=== PATIENT | female | born 1960 | race Two or more races ===

== ENCOUNTER 2020-07-20 13:19 | Outpatient (REF) | payer MEDICAID, SELFPAY | END 2020-07-20 13:20 | disposition home or self-care (01) | LOC: HO.LAB 13:19 | PROVIDERS: PCP Family Medicine; Referring Provider Family Medicine; Visit Provider Obstetrics & Gynecology | DX: R87.610 Atypical squamous cells of undetermined significance on cytologic smear of cervix (ASC-US) (principal); R87.810 Cervical high risk human papillomavirus (HPV) DNA test positive | CPT/HCPCS: 57454; 88305 ==

== ENCOUNTER → 2020-09-05 08:52 | Outpatient (BNVA) | payer MEDICAID, SELFPAY | PROVIDERS: PCP Family Medicine; Referring Provider Family Medicine; Visit Provider Obstetrics & Gynecology | DX: N87.0 Mild cervical dysplasia (principal) | CPT/HCPCS: 99212 ==

== ENCOUNTER 2020-09-09 11:57 | Day surgery (SDC) | payer MEDICAID, SELFPAY ==
[2020-09-09 12:58] VITALS: BP 190/96; PULSE 71; RESP 16; TEMP 36.4; O2SAT 98; BMI 31.7
--- NOTE | 2020-09-09 13:39 | MHC.SHP ---
Pre-Procedural Eval Section A The patient is an INPATIENT: No Changes since office visit: No Cold of Flu in the past 2 weeks, No New Medical Problems, No Changes in Medication and No Patient answered all questions The History & Physical has been completed within 30 days and I have reviewed it.: Yes Section B Chief Complaint: ely 1 persistant Allergies: Allergies Allergy/AdvReac Type Severity Reaction Status Date / Time penicillin V Allergy Unknown hives Verified 09/05/20 09:01 Penicillins [PENICILLINS] Allergy Unknown UNKNOWN Unverified 09/05/20 09:01 Plan Diagnosis/Plan: Unchanged Patient has been examined and remains a candidate for the planned procedure
--- NOTE | 2020-09-09 13:39 | PM.OP ---
Brief Operative Note Date of Service: 09/09/20 Pre-op diagnosis: persistent DHARMESH I with no tissues on ECC Post-op diagnosis: same Procedure: LEEP CONE with post CONE ECC Surgeon: Dieter Snyder MD Anesthesia: local and other (Paracervical block) Estimated blood loss (mL): 0 Pathology: other ( cervical cone and endocervix) Condition: stable Disposition: other (Home)
--- NOTE | 2020-09-09 13:41 | W.PM.OPN ---
Operative Note Operative Note Date of Service: 09/09/20 Narrative: Preop diagnosis: DHARMESH I with no tissues on ECC Operation: LEEP Cone with post cone ECC Post op diagnosis: same Anesthesia: paracervical block Complications: none Pathology: cervical cone with endocervix and a post cone ECC QBL: minimal procedure: The patient was put in the dorsal lithotomy position, was prepped and draped in the usual sterile fashion. A sterile speculum was inserted inside the patient vagina. Using Lugol solution the cervix with Dyed with Lugol solution to identifiy the abnormal demarcating line. 10 cc of Marcaine0.5% with epinephrine were given at 2,4 , 8, and 10 o'clock. Using a medium-size loop wire, the anterior cervical lip was excised followed by the posterior cervical lip and endocervix, post cone ECC was done afterwards. Hemostasis was assured using cautery and Monsel solution. All instruments were taken out of the patient's vaginal cavity. the patient tolerated the procedure well and was discharged home with the following instructions: call if temperature is above 100.4, vaginal bleeding, abdominal pain or nausea or vomiting. Follow-up in the office in 2 weeks for postop visit
== END 2020-09-09 23:59 | disposition home or self-care (01) ==
PROVIDERS: PCP Family Medicine; Visit Provider Obstetrics & Gynecology
PROC: 0UBC7ZZ Excision of Cervix, Via Natural or Artificial Opening (ICD-10-PCS; CPT 57522; principal; 2020-09-09 13:30)
DX: N87.0 Mild cervical dysplasia (principal); Z88.0 Allergy status to penicillin; I10 Essential (primary) hypertension
CPT/HCPCS: 57522; 88305; 88307; 88342; 88360

== ENCOUNTER → 2020-09-21 11:20 | Outpatient (BNVA) | payer MEDICARE, SELFPAY | PROVIDERS: Visit Provider Obstetrics & Gynecology | DX: Z13.89 Encounter for screening for other disorder (principal) | CPT/HCPCS: Q3014 ==

== ENCOUNTER 2020-09-26 15:19 | Outpatient (REF) | payer MEDICAID, SELFPAY ==
--- NOTE | 2020-09-26 | MM_ITS ---
EXAMINATION: MM SCREENING DIGITAL BREAST TOMOSYNTHESIS, BILATERAL CLINICAL INFORMATION: Screening. Asymptomatic. The lifetime risk of breast cancer based on the Tyrer-Cuzick Model is 13%. COMPARISON: Mammography: 03/18/2019, 03/05/2018, 07/24/2016, 03/23/2013, 03/21/2012; targeted left breast ultrasound 11/26/2008. TECHNIQUE: Digital breast tomosynthesis is performed in both the craniocaudal and mediolateral oblique views along with computer-aided detection (CAD). Synthesized 2D images are generated from the tomosynthesis. FINDINGS: There are scattered areas of fibroglandular density (ACR BI-RADS breast composition Category b). There are no significant masses, abnormal calcifications, or other abnormalities. There is a chronic circumscribed oval mass posterior 3:00 left breast slightly decreased in size from more remote mammography. Cyst noted in this area on targeted left breast ultrasound from 2008. No significant changes. MM/MM tomosynthesis screening BI IMPRESSION: 1. No mammographic evidence of malignancy. 2. Chronic circumscribed nodule posterior 3:00 left breast, cyst noted in this area on remote targeted ultrasound 2008. ASSESSMENT: BI-RADS 2: Benign RECOMMENDATION: Routine annual mammography screening. This patient's information was entered into a reminder system with a target due date for their next mammogram.
== END 2020-09-26 15:20 | disposition home or self-care (01) ==
LOC: HO.MAMMO 15:19
PROVIDERS: PCP Family Medicine; Visit Provider Advanced Practice Midwife
DX: Z12.31 Encounter for screening mammogram for malignant neoplasm of breast (principal)
CPT/HCPCS: 77063; 77067

== ENCOUNTER 2020-09-26 16:20 | Outpatient (REF) | payer MEDICAID, SELFPAY | END 2020-09-26 16:21 | disposition home or self-care (01) | LOC: HO.LAB 16:20 | PROVIDERS: Visit Provider Internal Medicine | DX: Z20.828 Contact with and (suspected) exposure to other viral communicable diseases (principal) | CPT/HCPCS: C9803; U0003 ==

== ENCOUNTER 2021-07-22 09:35 | Outpatient (REF) | payer MEDICAID, SELFPAY ==
--- NOTE | ~2021-07-22 | XR_ITS ---
EXAMINATION: XR FOOT, RIGHT CLINICAL INFORMATION: Pain along the plantar surface near 3rd toe. Suspected foreign body. COMPARISON: None TECHNIQUE: AP, lateral, and oblique views of the right foot. FINDINGS: Minimal calcaneal spur is noted along the plantar aspect. The bones and soft tissues are normal. No fracture. Alignment is anatomic. Joint spaces are maintained. XR/XR foot RT min 3V IMPRESSION: Minimal calcaneal spur. Otherwise unremarkable. Specifically, no radiopaque foreign body is visualized.
[2021-07-22 11:06] LABS: Estimated Average Glucose 114 mg/dL; Hemoglobin A1c % 5.6 %
[2021-07-22 11:11] LABS: Alanine Aminotransferase 20 U/L (0-31); Albumin Level 4.3 g/dL (3.5-5.0); Alkaline Phosphatase 80 U/L (39-117); Anion Gap 10 (12-20); Aspartate Amino Transferase 18 U/L (5-31); Bilirubin Total 0.6 mg/dL (0.0-1.0); Blood Urea Nitrogen 12 mg/dL (9-16); Calcium 9.5 mg/dL (8.4-10.2); Carbon Dioxide 31 mmol/L (22-29); Chloride 100 mmol/L (96-108); Cholesterol 168 mg/dL; Estimated Glomerular Filt Rate > 60; Glucose Random 116 mg/dL (60-115); HDL Cholesterol 43 mg/dL; LDL Cholesterol Calculated 114 mg/dl; Potassium 3.5 mmol/L (3.3-5.1); Sodium 137 mmol/L (135-145); Total Protein 7.4 g/dL (6.5-8.0); Triglycerides 59 mg/dL
[2021-07-22 11:31] LABS: TSH reflex Free T4 0.43 uIU/mL (0.32-4.0); Vitamin D 25-OH Total 25.1 ng/mL (>30)
== END 2021-07-22 09:36 | disposition home or self-care (01) ==
LOC: HO.LAB 09:35
PROVIDERS: PCP Family Medicine; Visit Provider Family Medicine
DX: M79.671 Pain in right foot (principal); I10 Essential (primary) hypertension
CPT/HCPCS: 36415; 73630; 80053; 80061; 82306; 83036; 84443

== ENCOUNTER 2021-09-28 15:40 | Outpatient (REF) | payer MEDICAID, SELFPAY ==
[2021-10-06 14:02] LABS: HPV 16 RNA NOT DETECTED (NOT DETECTED); HPV mRNA E6/E7 rflx Detected (Not Detected)
== END 2021-09-28 15:41 | disposition home or self-care (01) ==
LOC: HO.LAB 15:40
PROVIDERS: PCP Family Medicine; Visit Provider Obstetrics & Gynecology
DX: Z01.411 Encounter for gynecological examination (general) (routine) with abnormal findings (principal); Z11.51 Encounter for screening for human papillomavirus (HPV); N94.9 Unspecified condition associated with female genital organs and menstrual cycle
CPT/HCPCS: 87624; 87625; 88142

== ENCOUNTER 2021-10-06 15:37 | Outpatient (REF) | payer MEDICAID, SELFPAY ==
--- NOTE | ~2021-10-06 | MM_ITS ---
EXAMINATION: MM SCREENING DIGITAL BREAST TOMOSYNTHESIS, BILATERAL CLINICAL INFORMATION: Screening. Asymptomatic. The lifetime risk of breast cancer based on the Tyrer-Cuzick Model is 12%. COMPARISON: Mammography: 09/26/2020, 03/18/2019, 03/05/2018 TECHNIQUE: Digital breast tomosynthesis is performed in both the craniocaudal and mediolateral oblique views along with computer-aided detection (CAD). Synthesized 2D images are generated from the tomosynthesis. FINDINGS: There are scattered areas of fibroglandular density (ACR BI-RADS breast composition Category b). There is fine fibronodular parenchymal pattern similar to prior studies. There is no developing density or interval mass or architectural abnormality. Circumscribed nodule posterior 3:00 left breast noted on prior studies has resolved. There are no abnormal calcifications. The axilla and skin contours are unremarkable. MM/MM tomosynthesis screening BI IMPRESSION: No mammographic evidence of malignancy. ASSESSMENT: BI-RADS 2: Benign RECOMMENDATION: Routine annual mammography screening. This patient's information was entered into a reminder system with a target due date for their next mammogram.
== END 2021-10-06 15:38 | disposition home or self-care (01) ==
LOC: HO.MAMMO 15:37
PROVIDERS: PCP Family Medicine; Visit Provider Family Medicine
DX: Z12.31 Encounter for screening mammogram for malignant neoplasm of breast (principal)
CPT/HCPCS: 77063; 77067

== ENCOUNTER 2021-10-30 14:54 | Outpatient (REF) | payer MEDICAID, SELFPAY | END 2021-10-30 14:55 | disposition home or self-care (01) | LOC: HO.LAB 14:54 | PROVIDERS: PCP Family Medicine; Visit Provider Obstetrics & Gynecology | DX: R87.610 Atypical squamous cells of undetermined significance on cytologic smear of cervix (ASC-US) (principal); R87.810 Cervical high risk human papillomavirus (HPV) DNA test positive | CPT/HCPCS: 57454; 88305 ==

== ENCOUNTER → 2021-11-14 14:20 | Outpatient (BNVA) | payer MEDICAID, SELFPAY | PROVIDERS: PCP Family Medicine; Visit Provider Obstetrics & Gynecology | DX: R87.610 Atypical squamous cells of undetermined significance on cytologic smear of cervix (ASC-US) (principal); R87.810 Cervical high risk human papillomavirus (HPV) DNA test positive | CPT/HCPCS: 99212 ==

== ENCOUNTER 2021-11-20 13:50 | Outpatient (REF) | payer MEDICAID, SELFPAY ==
--- NOTE | ~2021-11-20 | US_ITS ---
EXAMINATION: US PELVIS CLINICAL INFORMATION: Adnexal fullness. COMPARISON: None TECHNIQUE: Ultrasound of the pelvis is performed using both transabdominal and transvaginal transducers along with Doppler. Transvaginal imaging is performed due to inadequate visualization transabdominally. FINDINGS: Uterus: The uterus is anteverted and measures 6.23 cm in length, 2.2 cm in AP and 4.4 cm in transverse dimension. The double wall endometrial thickness is 0.26 cm. The uterus is smooth in contour and has normal myometrial echogenicity. No visible fibroid. There are small nabothian cysts seen in the cervix. Adnexa: Both ovaries are visualized. There is normal color-flow to the adnexa. There is no ovarian torsion. There is no pelvic ascites or fluid collection. Right ovary measures 1.35 x 0.54 x 1.01 cm and volume 0.39 mL. No focal lesion seen. Previously the right ovary measured 1.3 x 1.1 x 1.2 cm. Left ovary measures 2.78 x 2.13 x 1.89 cm and volume 5.85 mL. There is an anechoic cyst measuring 1.4 x 2.3 x 1.6 cm. Previously the left ovary measured 1.6 x 1.0 x 1.9 cm. There is no free fluid in the cul-de-sac. Patient has a known left pelvic kidney with a dilated extrarenal pelvis versus small hydronephrosis. US/US pelvic and transvaginal IMPRESSION: Small nabothian cysts in the cervix. Small left ovarian cyst measuring 2.3 cm. The uterus is unremarkable.
== END 2021-11-20 13:51 | disposition home or self-care (01) ==
LOC: HO.US 13:50
PROVIDERS: PCP Family Medicine; Visit Provider Obstetrics & Gynecology
DX: N94.9 Unspecified condition associated with female genital organs and menstrual cycle (principal)
CPT/HCPCS: 76830; 76856

== ENCOUNTER → 2021-12-04 13:56 | Outpatient (BNVA) | payer MEDICAID, SELFPAY | PROVIDERS: Visit Provider Obstetrics & Gynecology ==

== ENCOUNTER 2022-10-19 14:47 | Outpatient (REF) | payer MEDICAID, SELFPAY ==
--- NOTE | ~2022-10-19 | MM_ITS ---
EXAMINATION: MM SCREENING DIGITAL BREAST TOMOSYNTHESIS, BILATERAL CLINICAL INFORMATION: Screening. Asymptomatic. The lifetime risk of breast cancer based on the Tyrer-Cuzick Model is 8%. COMPARISON: Mammography: 10/06/2021, 09/26/2020, 03/18/2019 TECHNIQUE: Digital breast tomosynthesis is performed in both the craniocaudal and mediolateral oblique views along with computer-aided detection (CAD). Synthesized 2D images are generated from the tomosynthesis. Additional left MLO view is provided. FINDINGS: There are scattered areas of fibroglandular density (ACR BI-RADS breast composition Category b). There are no significant masses, abnormal calcifications, or other abnormalities. Breast tissue composition borders on heterogeneously dense. Fine fibronodular parenchymal pattern is similar to prior studies. No developing density or architectural abnormality. No significant changes. MM/MM tomosynthesis screening BI IMPRESSION: No mammographic evidence of malignancy. ASSESSMENT: BI-RADS 1: Negative RECOMMENDATION: Routine annual mammography screening. This patient's information was entered into a reminder system with a target due date for their next mammogram.
== END 2022-10-19 14:48 | disposition home or self-care (01) ==
LOC: HO.MAMMO 14:47
PROVIDERS: PCP Family Medicine; Visit Provider Family Medicine
DX: Z12.31 Encounter for screening mammogram for malignant neoplasm of breast (principal)
CPT/HCPCS: 77063; 77067

== ENCOUNTER → 2022-11-26 14:00 | Outpatient (BNVA) | payer MEDICAID, SELFPAY | PROVIDERS: PCP Family Medicine; Visit Provider Surgery | DX: K64.9 Unspecified hemorrhoids (principal) | CPT/HCPCS: 99202 ==

== ENCOUNTER 2022-12-04 14:44 | Outpatient (REF) | payer MEDICAID, SELFPAY ==
[2022-12-11 10:03] LABS: HPV mRNA E6/E7 rflx Detected (Not Detected)
[2022-12-11 10:08] LABS: HPV 16 RNA NOT DETECTED (NOT DETECTED)
== END 2022-12-04 14:45 | disposition home or self-care (01) ==
LOC: HO.LNP 14:44
PROVIDERS: PCP Family Medicine; Visit Provider Obstetrics & Gynecology
DX: Z01.419 Encounter for gynecological examination (general) (routine) without abnormal findings (principal); Z11.51 Encounter for screening for human papillomavirus (HPV)
CPT/HCPCS: 87624; 87625; 88142

== ENCOUNTER 2022-12-19 07:59 | Day surgery (SDC) | payer MEDICAID, SELFPAY ==
--- NOTE | 2022-12-18 12:41 | HO.ANESPROP2 ---
Documented by User: Fransisca Kim NP 12/18/22 12:42 HPI - Anesthesia Eval Consult details Narrative: 61yo F for Hemorrhoidectomy, Sigmoidoscopy, Rigid PMFSH Active Problems Active Problems: All Active Problems (Updated 12/04/22 @ 15:19 by Dieter Snyder MD) Hemorrhoids (Acute) Adnexal fullness (Acute) Well woman exam (Acute) ASCUS with positive high risk HPV (Acute) ASCUS with positive high risk HPV cervical (Acute) Past Medical History Medical History (Updated 12/04/22 @ 15:19 by Dieter Snyder MD) ASCUS with positive high risk HPV cervical DHARMESH I (cervical intraepithelial neoplasia I) Hypertension Family History Family History (Updated 12/04/22 @ 15:06 by Joselin Duggan CMA) Father HTN (hypertension) Heart attack Mother HTN (hypertension) Diabetes Heart disease Brother HTN (hypertension) Sister HTN (hypertension) Surgical History Surgical History History of bilateral tubal ligation History of Social History Social History (Updated 12/04/22 @ 15:08 by Joselin Duggan CMA) Household Members: Family Housing: House Alcohol intake: current Alcohol intake frequency: does not drink Alcohol type: beer Patient Tobacco Use Status: Never used Tobacco Use of substances other than those prescribed or required for medical reasons: No Are you DNR?: No Advance Directives: No Advance Directives Information Provided: Yes service: No Current occupational status: employed 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 Sexual orientation: Straight/Heterosexual Gender identity: Female Meds Allergies Allergy/AdvReac Type Severity Reaction Status Date / Time penicillin V Allergy Unknown hives Verified 12/04/22 15:04 Home Medications Medication Instructions Recorded Confirmed Last Taken Type chlorthalidone 25 mg tablet 25 mg PO DAILY 07/20/20 11/26/22 Unknown History Exam Exam Date and Time: December 18, 2022 1241 Assessment and Plan Assessment Anesthesia Assessment: Chart Reviewed Documented by User: Yany Malone MD 12/19/22 09:14 [facility] Past Medical History Medical History (Updated 12/04/22 @ 15:19 by Dieter Snyder MD) ASCUS with positive high risk HPV cervical DHARMESH I (cervical intraepithelial neoplasia I) Hypertension Family History Family History (Updated 12/04/22 @ 15:06 by Joselin Duggan CMA) Father HTN (hypertension) Heart attack Mother HTN (hypertension) Diabetes Heart disease Brother HTN (hypertension) Sister HTN (hypertension) Family history of problems with anesthesia: No Surgical History Surgical History History of bilateral tubal ligation History of History of Problems with Anesthesia: No Social History Social History (Updated 12/04/22 @ 15:08 by Joselin Duggan CMA) Household Members: Family Housing: House Alcohol intake: current Alcohol intake frequency: does not drink Alcohol type: beer Patient Tobacco Use Status: Never used Tobacco Use of substances other than those prescribed or required for medical reasons: No Are you DNR?: No Advance Directives: No Advance Directives Information Provided: Yes service: No Current occupational status: employed 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 Sexual orientation: Straight/Heterosexual Gender identity: Female Meds Allergies Allergy/AdvReac Type Severity Reaction Status Date / Time penicillin V Allergy Unknown hives Verified 12/04/22 15:04 Home Medications Medication Instructions Recorded Confirmed Last Taken Type chlorthalidone 25 mg tablet 25 mg PO DAILY 07/20/20 11/26/22 Unknown History Exam Airway Mallampati Class: III TM Dist: >3cm Neck ROM: Full Assessment and Plan Assessment Anesthesia Assessment: Anesthesia Plan Discussed Final Anesthetic Review Family History of Problems with Anesthesia: No History of Problems with Anesthesia: No NPO: Yes ASA Class: II Final Preanesthetic Review: No Changes in Pt Med Stat, Meds/Allgs Chart Reviewed, Consent Obtained/Reviewed and Anes Risks/Benef Reviewed Patient Risk: Intermediate Procedure Risk: Low Anesthetic Plan Anesthetic Plan: GA Disposition: Standard PACU
[2022-12-19] VITALS (8 sets, daily range): BP systolic 112–158; BP diastolic 69–86; PULSE 60–73; RESP 16–18; TEMP 36.4–36.5; O2SAT 96–99; BMI 32.7
[2022-12-19] MEDS: Lactated Ringers 1,000 ML 100 ML IVCONT (08:48)
[2022-12-19] MEDS: Acetaminophen 1,000 MG/100 ML PIGGYBACK 400 MG IV (11:07)
--- NOTE | 2023-01-11 11:44 | P.OP_ITS ---
Operative Note Operative Note Date of Service: 12/19/22 Narrative: Preoperative diagnosis: [] Symptomatic external hemorrhoids Postop diagnosis: [] Same Procedure [] external hemorrhoidectomy Surgeon: [] Dawson Electrical Tests Supervisor: [] Type of Anesthesia: [] General Indication for surgery: [] Symptomatic enlarging bleeding external hemorrhoids Findings: [] Patient presents with hemorrhoids at the for 7 and 11 o'clock positions Patient brought the operating room, placed on the operating table in a supine position, after an adequate level of general anesthesia was induced, patient was placed in lithotomy. Initial rectal exam was within normal limits aside from the above mentioned hemorrhoids. These were sequentially transected using mini ligature device, by grasping each hemorrhoid and placing the ligature at the base and sequentially ligating and transecting. A completion the procedure, wounds were clean dry and intact. Each was infiltrated with 0.5% Marcaine with epinephrine a completion. Dressings were applied. Sponge, needle, and instrument counts were reported to be correct. Patient tolerated the procedure well and emerged from anesthesia stable condition. EBL minimal
== END 2022-12-19 11:57 | disposition home or self-care (01) ==
PROVIDERS: PCP Family Medicine; Visit Provider Surgery
PROC: (CPT 46221; principal; 2022-12-19 09:50)
PROC: 0DJD8ZZ Inspection of Lower Intestinal Tract, Via Natural or Artificial Opening Endoscopic (ICD-10-PCS; CPT 45300; 2022-12-19 09:50)
DX: K64.4 Residual hemorrhoidal skin tags (principal); K59.00 Constipation, unspecified; Z86.010 Personal history of colon polyps; N87.0 Mild cervical dysplasia; I10 Essential (primary) hypertension; Z79.899 Other long term (current) drug therapy; Z88.0 Allergy status to penicillin; Z98.51 Tubal ligation status
CPT/HCPCS: 46221; 88304; J0131; J1100; J2250; J2405; J2795; J3010

== ENCOUNTER → 2022-12-27 11:14 | Outpatient (BNVA) | payer MEDICAID, SELFPAY | PROVIDERS: PCP Family Medicine; Visit Provider Surgery ==

== ENCOUNTER 2023-02-18 11:37 | Outpatient (REF) | payer MEDICAID, SELFPAY | END 2023-02-18 11:38 | disposition home or self-care (01) | LOC: HO.LNP 11:37 | PROVIDERS: PCP Family Medicine; Visit Provider Obstetrics & Gynecology | DX: R87.610 Atypical squamous cells of undetermined significance on cytologic smear of cervix (ASC-US) (principal); R87.810 Cervical high risk human papillomavirus (HPV) DNA test positive | CPT/HCPCS: 57454; 88305; 88342 ==

== ENCOUNTER 2023-03-05 14:51 | Outpatient (REF) | payer MEDICAID, SELFPAY ==
--- NOTE | ~2023-03-05 | XR_ITS ---
EXAMINATION: XR CHEST CLINICAL INFORMATION: Positive PPD COMPARISON: Previous chest x-ray March 2020 TECHNIQUE: 2 views of the chest were obtained. FINDINGS: No significant abnormality is noted involving the heart, lungs, mediastinum, bony thorax or soft tissues. XR/XR chest 2V IMPRESSION: Unremarkable examination.
== END 2023-03-05 14:52 | disposition home or self-care (01) ==
LOC: HO.HHCX 14:51
PROVIDERS: Visit Provider Family Medicine
DX: R76.11 Nonspecific reaction to tuberculin skin test without active tuberculosis (principal)
CPT/HCPCS: 71046

== ENCOUNTER → 2023-03-27 13:20 | Outpatient (BNVA) | payer MEDICAID, SELFPAY | PROVIDERS: PCP Family Medicine; Visit Provider Obstetrics & Gynecology | DX: N87.0 Mild cervical dysplasia (principal); Z98.890 Other specified postprocedural states | CPT/HCPCS: 99212 ==

== ENCOUNTER 2023-06-10 18:33 | Outpatient (REF) | payer MEDICAID, SELFPAY ==
[2023-06-10 18:45] LABS: Appearance Urine Clear; Color Urine Yellow; Glucose Urine UA Negative (Negative); Leukocyte Esterase Urine Small (1+) (Negative); Nitrite Urine Negative (Negative); PH 6.5 (5.0-9.0); UMIC TRIGGER UA YES; Urine Blood Negative (Negative); Urine Ketones Negative (Negative); Urine Protein Negative (Neg-Trace)
[2023-06-10 18:50] LABS: Bacteria Urine 2+ (None Seen); Hyaline Casts Urine 0-2 /LPF (0-2); RBC Urine 0-2 /HPF (0-2); WBC Urine 21-50 /HPF (0-5)
== END 2023-06-10 18:34 | disposition home or self-care (01) ==
LOC: HO.HHCLNP 18:33
PROVIDERS: Visit Provider Family Medicine
DX: R30.0 Dysuria (principal)
CPT/HCPCS: 81001; 87086

== ENCOUNTER 2023-09-20 10:26 | Outpatient (REF) | payer MEDICAID, SELFPAY ==
[2023-09-20 14:57] LABS: Cholesterol 171 mg/dL (<200); HDL Cholesterol 53 mg/dL (>40); LDL Cholesterol Calculated 105 mg/dL (<100); Triglycerides 69 mg/dL (<150)
[2023-09-20 15:12] LABS: Alanine Aminotransferase 17 U/L (0-31); Albumin Level 4.3 g/dL (3.5-5.0); Alkaline Phosphatase 78 U/L (39-117); Anion Gap 13 (12-20); Aspartate Amino Transferase 19 U/L (5-31); Bilirubin Total 0.6 mg/dL (0.0-1.0); Blood Urea Nitrogen 17 mg/dL (9-16); Calcium 9.7 mg/dL (8.4-10.2); Carbon Dioxide 27 mmol/L (22-29); Chloride 100 mmol/L (96-108); Estimated Glomerular Filt Rate > 60; Glucose Random 88 mg/dL (60-115); Potassium 3.4 mmol/L (3.3-5.1); Sodium 137 mmol/L (135-145); Total Protein 8.1 g/dL (6.5-8.0)
[2023-09-20 15:27] LABS: Estimated Average Glucose 114 mg/dL; Hemoglobin A1C 134.7033 umol/L; Hemoglobin A1c % 5.6 % (<6.0)
[2023-09-20 15:28] LABS: TSH reflex Free T4 0.56 uIU/mL (0.32-4.0)
[2023-09-20 17:35] LABS: Reflex LDLD? No
== END 2023-09-20 10:27 | disposition home or self-care (01) ==
LOC: HO.CHCLDS 10:26
PROVIDERS: Visit Provider Family Medicine
DX: I10 Essential (primary) hypertension (principal); R73.03 Prediabetes
CPT/HCPCS: 36415; 80053; 80061; 83036; 84443

== ENCOUNTER 2023-10-25 14:37 | Outpatient (REF) | payer MEDICAID, SELFPAY | END 2023-10-25 14:38 | disposition home or self-care (01) | LOC: HO.MAMMO 14:37 | PROVIDERS: PCP Family Medicine; Visit Provider Family Medicine | DX: Z12.31 Encounter for screening mammogram for malignant neoplasm of breast (principal) | CPT/HCPCS: 77063; 77067 ==

== ENCOUNTER → 2023-10-25 15:00 | Outpatient (BNV) | payer MEDICAID, SELFPAY | PROVIDERS: PCP Family Medicine; Visit Provider Radiology Diagnostic Radiology | DX: Z12.31 Encounter for screening mammogram for malignant neoplasm of breast (principal) | CPT/HCPCS: 77063; 77067 ==

== ENCOUNTER 2023-12-11 14:38 | Outpatient (REF) | payer MEDICAID, SELFPAY ==
[2023-12-21 19:44] LABS: HPV 16 RNA NOT DETECTED (NOT DETECTED); HPV mRNA E6/E7 rflx Detected (Not Detected)
== END 2023-12-11 14:39 | disposition home or self-care (01) ==
LOC: HO.LNP 14:38
PROVIDERS: Visit Provider Obstetrics & Gynecology
DX: Z01.419 Encounter for gynecological examination (general) (routine) without abnormal findings (principal); Z11.51 Encounter for screening for human papillomavirus (HPV)
CPT/HCPCS: 87624; 87625; 88142; 99396

== ENCOUNTER 2023-12-11 14:38 | Outpatient (AMB) | payer MEDICAID, SELFPAY ==
[2023-12-11 14:40] VITALS: BP 122/70
--- NOTE | 2023-12-11 14:40 | A.OFFVIS_ITS ---
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 No complaints. Last Pap/HPV was in 12/20 ascus/HPV 18/45 positive, colpo/biopsy/ECC DHARMESH 1 Last Mammogram was BI-RADS 1 in 10/23 Last Colonoscopy was in 04/17, the recommendation was to repeat in 5 years [facility] Medical History DHARMESH I (cervical intraepithelial neoplasia I) ASCUS with positive high risk HPV cervical Hypertension Surgical History History of hemorrhoidectomy (~12/19/22) History of bilateral tubal ligation History of Family History Father HTN (hypertension) Heart attack Mother HTN (hypertension) Diabetes Heart disease Brother HTN (hypertension) Sister HTN (hypertension) Social History Household Members: Family Housing: House Alcohol intake: current Alcohol intake frequency: does not drink Alcohol type: beer Patient Tobacco Use Status: Never used Tobacco service: No Current occupational status: employed 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 Sexual orientation: Straight/Heterosexual Gender identity: Female Female Reproductive History Menstrual Date of last pap smear: 12/05/22 History of abnormal pap smear: Yes (HPV +) Date of Mammogram: 10/25/23 Review of Systems Const All systems reviewed & are unremarkable except as noted in HPI and below Card Reports as per HPI Resp Reports as per HPI GI Reports as per HPI and Reports no additional complaints Reports as per HPI Physical Exam Const General: cooperative, healthy appearing and comfortable Chest Chest palpation & inspection: normal inspection of the chest and normal palpation of entire chest wall Breast/axilla inspection: normal inspection of the breasts and normal inspection of the axillae Breast/axilla palpation: normal palpation of the breasts, normal palpation of the axillae and no axillary lymphadenopathy Resp Effort & Inspection: normal respiratory effort Auscultation: clear to auscultation bilaterally Percussion: percussion normal Cardio Palpation: normal PMI Rate: regular rate Rhythm: regular rhythm Heart sounds: no murmurs and no rubs Peripheral pulses: Peripheral pulses 2+ throughout GI Inspection: Yes normal to inspection Palpation (GI): Soft to palpation, nontender, no guarding, not rigid and No hepatosplenomegaly present Percussion: Yes normal to percussion Auscultation: normal bowel sounds Rectal Exam - Female: deferred General: Yes bladder normal to palpation External Female Exam: No lesion Speculum Exam - Vagina: normal appearance of the vagina, normal palpation, normal vaginal discharge and not erythematous Speculum Exam - Cervix: normal appearance of the cervix and normal palpation Bimanual exam- vagina & uterus: normal bimanual exam, normal palpation, uterine size normal, bladder normal to palpation, consistency normal and normal palpation Bimanual Exam- Adnexa, other: normal adnexae, no masses and no tenderness Assessment & Plan Assessment & Plan (1) Well woman exam: Comment: History of DHARMESH 1 since 2016 status post LEEP cone was post cone ECC with negative pathology 10/21 Ascus/HPV 18 positive, colpo negative/ECC negative 12/20 ascus/HPV 18/45 positive, colpo biopsy DHARMESH 1 Code(s): Z01.419 - Encounter for gynecological examination (general) (routine) without abnormal findings Plan: Co testing done. Counseled the patient about the recommended dietary allowance of 1200 mg of Calcium & 600 IU of vitamin D. Instructions given to patient to schedule next screening Mammogram in 10/24 The patient was referred to GI for screening colonoscopy . The patient was instructed to perform monthly self-breast exams and schedule annual exam in a year. All questions answered and the patient verbalized understanding. Orders: Referrals Gastroenterology Referral Z12.11 - Encounter for screening for malignant neoplasm of colon Coding Level of Care Code Est Pt Prev Care 40-64y(59826) Diagnoses Well woman exam Z01.419
== END 2023-12-11 16:12 | disposition home or self-care (01) ==
PROVIDERS: Visit Provider Obstetrics & Gynecology
DX: Z01.419 Encounter for gynecological examination (general) (routine) without abnormal findings (principal)
CPT/HCPCS: 99396

== ENCOUNTER 2023-12-19 12:13 | Outpatient (REF) | payer MEDICAID, SELFPAY ==
--- NOTE | ~2023-12-19 | XR_ITS ---
EXAM: X-RAYS OF BILATERAL SHOULDERS CLINICAL INFORMATION: Bilateral shoulder pain. COMPARISON: Left shoulder 07/09/2017. TECHNIQUE: 3 views of each shoulder. FINDINGS: LEFT SHOULDER: Degenerative changes in the imaged upper thoracic spine. The bones are diffusely demineralized. Moderate degenerative changes with joint space narrowing and hypertrophic change in the acromioclavicular joint. Narrowing of the subacromial space with hypertrophic change. Spurring along the superolateral aspect of the humeral head. RIGHT SHOULDER: Bones are diffusely demineralized. Moderate degenerative changes in the acromioclavicular joint with joint space narrowing and hypertrophic change. Glenohumeral alignment preserved. XR/XR shoulder RT min 2V IMPRESSION: 1. Moderate degenerative changes bilateral acromioclavicular joints. 2. Narrowing of the subacromial space on the left with hypertrophic change.
--- NOTE | ~2023-12-19 | XR_ITS ---
EXAM: X-RAYS OF BILATERAL SHOULDERS CLINICAL INFORMATION: Bilateral shoulder pain. COMPARISON: Left shoulder 07/09/2017. TECHNIQUE: 3 views of each shoulder. FINDINGS: LEFT SHOULDER: Degenerative changes in the imaged upper thoracic spine. The bones are diffusely demineralized. Moderate degenerative changes with joint space narrowing and hypertrophic change in the acromioclavicular joint. Narrowing of the subacromial space with hypertrophic change. Spurring along the superolateral aspect of the humeral head. RIGHT SHOULDER: Bones are diffusely demineralized. Moderate degenerative changes in the acromioclavicular joint with joint space narrowing and hypertrophic change. Glenohumeral alignment preserved. XR/XR shoulder LT min 2V IMPRESSION: 1. Moderate degenerative changes bilateral acromioclavicular joints. 2. Narrowing of the subacromial space on the left with hypertrophic change.
== END 2023-12-19 12:14 | disposition home or self-care (01) ==
LOC: HO.XRAY 12:13
PROVIDERS: PCP Family Medicine; Visit Provider Family Medicine
DX: M89.8X1 Other specified disorders of bone, shoulder (principal)
CPT/HCPCS: 73030

== ENCOUNTER 2024-01-29 13:51 | Outpatient (AMB) | payer MEDICAID, SELFPAY ==
--- NOTE | 2024-01-29 14:21 | MHC.OFFVIS ---
Intake Visit Reasons: Colposcopy Allergies penicillin V Allergy (Unknown, Verified 12/11/23 14:43) hives REPLACED BY [facility] Medical History DHARMESH I (cervical intraepithelial neoplasia I) ASCUS with positive high risk HPV cervical Hypertension Surgical History History of hemorrhoidectomy (~12/19/22) History of bilateral tubal ligation History of Family History Father HTN (hypertension) Heart attack Mother HTN (hypertension) Diabetes Heart disease Brother HTN (hypertension) Sister HTN (hypertension) Social History Household Members: Family Housing: House Alcohol intake: current Alcohol intake frequency: does not drink Alcohol type: beer Patient Tobacco Use Status: Never used Tobacco service: No Current occupational status: employed 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 Sexual orientation: Straight/Heterosexual Gender identity: Female Office Procedures Colposcopy Before the procedure was started discussed with the patient the procedure, alternatives & all the risks associated with the procedure (bleeding, infection, injury to vagina, bladder, vessels, possible need for transfusion with all its risks) then patient signed the consent Pap smear = LSIL can not exclude HGSIL HPV E6/E7 positive HPV 18/45 positive, HPV 16 negative Speculum inserted, acetic acid used Colposcopy done Transformation zone seen, acetowhite lesions identified at 5+9+1 o?clock, cervical biopsies taken from 5+9+1 o?clock, ECC done afterwards. Vaginoscopy of the upper vagina showed aceto-white lesion at 08:00 o'clock, biopsy taken Monsel solution used for hemostasis. The patient tolerated well . At the end the patient was instructed to call if temp>100.4, abdominal pain, n/v, bleeding; The patient was given the following instructions: nothing per vagina, no intercourse or bath tub use. All questions answered the patient verbalized understanding. Instructed the patient to make an appointment in 2 weeks for follow-up This note was generated with a voice recognition program. Some errors may have been overlooked during the review of this note. Sometimes these errors may affect the content or meaning of a given sentence. 76804-Beacedeze of cervix including upper vagina with biopsy and ECC Procedure code (CPT) selection complete Assessment & Plan Assessment & Plan (1) LGSIL on Pap smear of cervix: Comment: Can not exclude HGSIL, HPV E6/E7 positive , HPV 18/45 positive, HPV 16 negative Code(s): R87.612 - Low grade squamous intraepithelial lesion on cytologic smear of cervix (LGSIL) Category: Medical Plan: Colposcopy//vaginoscopy/ cervical biopsy/ECC/vaginal biopsy done, see procedure note Orders: Orders AMB Colposcopy Today R87.612 - Low grade squamous intraepithelial lesion on cytologic smear of cervix (LGSIL) Coding Level of Care Code Procedure Only Diagnoses LGSIL on Pap smear of cervix R87.612 CPT Codes Colposcopy - CPT: 88836-Zvyggiwnk of cervix including upper vagina with biopsy and ECC ([id number])
== END 2024-01-29 15:24 | disposition home or self-care (01) ==
PROVIDERS: PCP Family Medicine; Referring Provider Family Medicine; Visit Provider Obstetrics & Gynecology
DX: R87.612 Low grade squamous intraepithelial lesion on cytologic smear of cervix (LGSIL) (principal)
CPT/HCPCS: 57454

== ENCOUNTER 2024-01-29 13:51 | Outpatient (REF) | payer MEDICAID, SELFPAY | END 2024-01-29 13:52 | disposition home or self-care (01) | LOC: HO.LNP 13:51 | PROVIDERS: PCP Family Medicine; Visit Provider Obstetrics & Gynecology | DX: R87.612 Low grade squamous intraepithelial lesion on cytologic smear of cervix (LGSIL) (principal) | CPT/HCPCS: 57454; 88305; 88342; 88360 ==

== ENCOUNTER 2024-02-03 12:52 | Outpatient (AMB) | payer MEDICAID, SELFPAY ==
--- NOTE | 2024-02-03 12:53 | MHC.OFFVIS ---
Vital Signs 02/03/24 12:54 Height 5 ft 1 in Weight 159 lb BMI 30.0 Intake Visit Reasons: New Pt - Left Shoulder Pain Intake Note: Loan is a 63 year old female who presents today as a new patient with complaints of left shoulder pain. Patient reports that she is having pain in bilateral shoulders, left > right. She taked 100mg Diclofenac daily for her pain which midly helps. Pain increases with all movment. Allergies penicillin V Allergy (Unknown, Verified 12/11/23 14:43) hives HPI HPI New Pt - Left Shoulder Pain: Details: Loan is a 63 year old female who presents today as a new patient with complaints of left shoulder pain. Patient reports that she is having pain in bilateral shoulders, left > right. She taked 100mg Diclofenac daily for her pain which midly helps. Pain increases with all movment. She has had pain for 4 years. She states it comes and goes. She has difficulty sleeping at night. Her left is worse than her right. [facility] Medical History DHARMESH I (cervical intraepithelial neoplasia I) ASCUS with positive high risk HPV cervical Hypertension Surgical History History of hemorrhoidectomy (~12/19/22) History of bilateral tubal ligation History of Family History Father HTN (hypertension) Heart attack Mother HTN (hypertension) Diabetes Heart disease Brother HTN (hypertension) Sister HTN (hypertension) Social History Household Members: Family Housing: House Alcohol intake: current Alcohol intake frequency: does not drink Alcohol type: beer Patient Tobacco Use Status: Never used Tobacco service: No Current occupational status: employed 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 Sexual orientation: Straight/Heterosexual Gender identity: Female Physical Exam Vital Signs: BMI result Body Mass Index 30.0 Const General: cooperative, healthy appearing, no acute distress and well groomed Orientation/consciousness: oriented to person and oriented to place HEENT Head: Yes normal to inspection, Yes normocephalic and Yes atraumatic Eyes General: appearance normal, both eyes and all related structures Alignment and Position: alignment normal Conjunctivae: conjunctivae normal EOM: EOMs intact bilaterally Neck Neck: Yes normal visual inspection and Yes trachea midline Resp Other: No rerpiratory distress Effort & Inspection: normal respiratory effort and able to speak in complete sentences Cardio Other: Palpable radial pulse with no appreciable rythmic abnormalities GI Other: No abdominal distension Back/Spine/Pelvis Cervical Spine: normal cervical lordosis and cervical ROM normal Skin General skin exam: no rashes or lesions noted Neuro General: oriented to person, oriented to place and gait normal Extrem Other: 30/90/130/L5 Negative empty can Negative lift-off Negative Camara Positive Neer Tenderness palpation AC joint, mild Mild pain with cross-body adduction bilaterally Office Procedures Joint Injection/Drain Joint Injection/Drain Details: Injected 1 mL of Decadron and 3 mL 1% lidocaine and 3 mL of 0.25% Marcaine. Site was prepped using aseptic technique. Patient tolerated the procedure well. Primary Site: left shoulder Approach Used: posterolateral Coding - Large joint Procedure code (CPT) selection complete Results Reviewed Results Reviewed: I personally reviewed relevant radiographs. Mild degenerative changes bilateral AC joints. Otherwise unremarkable radiographs Assessment & Plan Assessment & Plan (1) Bilateral shoulder bursitis: Code(s): M75.51 - Bursitis of right shoulder; M75.52 - Bursitis of left shoulder Category: Medical Plan: I injected her left shoulder today and recommend physical therapy. She takes NSAIDs. If after therapy or pain persist she may return to see me. Orders: Orders PT Evaluation and Treatment Today M75.51 - Bursitis of right shoulder, M75.52 - Bursitis of left shoulder Coding Level of Care Code New Pt Level 3 (65586) Diagnoses Bilateral shoulder bursitis M75.51; M75.52 CPT Codes Coding - Large joint: 69402 - Large joint ([id number])
== END 2024-02-03 16:00 ==
PROVIDERS: PCP Family Medicine; Referring Provider Family Medicine; Visit Provider Orthopaedic Surgery
DX: M75.51 Bursitis of right shoulder (principal); M75.52 Bursitis of left shoulder
CPT/HCPCS: 20610; 99203

== ENCOUNTER → 2024-02-03 12:52 | Outpatient (BNVA) | payer MEDICAID, SELFPAY | PROVIDERS: PCP Family Medicine; Visit Provider Orthopaedic Surgery | DX: M75.51 Bursitis of right shoulder (principal); M75.52 Bursitis of left shoulder | CPT/HCPCS: 20610; 99202; J0665; J1100 ==

== ENCOUNTER 2024-02-28 10:00 | Outpatient (RCR) | payer MEDICAID, SELFPAY ==
--- NOTE | 2024-02-14 11:48 | MHC.PT.EP ---
[facility] [place] Office [place] Office [place] Office [address] [phone] F: [phone] F: [phone] F: [phone] F: [phone] Physical Therapy Plan of Care Date of Evaluation: 02/14/24 Date of Surgery: Diagnosis: YANETH SHOULDER PAIN () Assessment: JIMMIE IS A PLEASANT 63 YO FEMALE WHO REPORTS A FOUR YEAR HISTORY OF SHOULDER PAIN, NO SIGRID. PAIN HAS BEEN GRADUALLY INCREASING AND HER PCP REFERRED HER TO ORTHO FOR WORSENING SYMPTOMS. SHE DID UNDER GO INJECTION IN LEFT SHOULDER BY NE WITH SOME BENEFIT. SHE INDICATES PAIN IN SHOULDERS AND INTO YANETH BICEPS. RATES THIS TIGHTNESS , PULLING AND SPASMS SHE DENIES ANY BRUISING, SWELLING OR CHANGE IN SENSATION. LAST FEW DAYS BEEFORE BED, TAKING MEDICATION IN ORDER TO SLEEP. 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 AT HOME SHE IS RESPONSIBLE FOR HOMEMAKING TASKS BUT HAS HIRED ASSISTANCE FOR YARD WORK. LIVES WITH DAUGHTER WHO IS ABLE TO ASSIST. PERFORMS HOME STRETCHES ISSUED BY MD. UPON EXAM SHE DEMONSTRATES IMPAIRMENTS INCLUDE SIGNIFICANTLY DECREASED SHOULDER ROM AND STRENGTH, ALTERED POSTURE INCLUDING THORACIC SCOLIOSIS, ALTERED SOFT TISSUE MOBILITY, INCREASED PAIN. FUNCTIONAL LIMITATIONS INCLUDE DECREASED TOLERANCE TO PUSHING, PULLING LIFTING AND REACHING, SOME DIFFICULTY WITH HOMEMAKING AND SELF CARE TASKS, DIFFICULTY WITH WORK TASKS AND DECREASED PARTICIPATION IN COMMUNITY ACTIVITY. SHE REPORTS DISRUPTED SLEEP. [ End ] Frequency and Duration: The patient will be seen 2 X WEEK FOR 4 WEEKS Short Term Goals: INITIATE HEP AND PROMOTE SELF MANAGEMENT OF SYMPTOMS Senior Care Goals: INDEPENDENT HEP TO PLACE 5# OBJECT ON SHOULDER HEIGHT SHELF TO PERFORM ADLs AND HOMEMAKING TASKS WITH PAIN LESS THAN 2/10 TO REPORT SLEEPING WITHOUT WAKING FROM PAIN A MINIMUM OF 6 HOURS Treatment Plan: Modalities to reduce pain, spasms and effusion. Manual therapy to restore motion and function. Therapeutic exercise to improve strength and flexibility. Neuromuscular re-education for posture and balance. Therapeutic activities to return to functional activities of daily living. Electronically signed by: MEÑO LOPEZ PT DPT Please sign and return to therapist. Thank you for your referral.
== END 2024-03-27 07:53 | disposition home or self-care (01) ==
LOC: HO.PT 10:00
PROVIDERS: PCP Family Medicine; Visit Provider Orthopaedic Surgery
DX: M75.51 Bursitis of right shoulder (principal); M75.52 Bursitis of left shoulder
CPT/HCPCS: 97110; 97162; 97535

== ENCOUNTER 2024-03-16 09:23 | Outpatient (AMB) | payer MEDICAID, SELFPAY ==
--- NOTE | 2024-03-16 09:29 | A.OFFVIS_ITS ---
Vital Signs 03/16/24 09:39 Height 5 ft 1 in Weight 164 lb 0.383 oz BMI 31.0 BP 110/72 Blood Pressure Location Rt brachial Position Sitting Pulse 70 Pulse Source Pulse Oximeter Pulse Oximetry (%) 98 Oxygen Delivery Method Room Air Intake Visit Reasons: Colonoscopy Screening Intake Note: Loan presents in office today for a scheduled colo scrn. CC: Pt reports that they are here for a recall colo (last - January 2019). Pt denies any sx at the moment. Corporate Meeting Planner Required: Yes Corporate Meeting Planner Name: [id number] Mao Allergies penicillin V Allergy (Unknown, Verified 03/16/24 09:38) hives HPI HPI Colonoscopy Screening: Details: 63 year old? female here today for pre colonoscopy screening.? Patient was sent to us by his PCP.? Last colonoscopy in 2018 Patient denies any gastrointestinal symptoms in the past or at present.? Denies any personal or family history of gastrointestinal disease, colon polyps, or CRC.? Denies history of difficulty with sedation or anesthesia in the past.? Negative for history of sleep apnea.? Denies any history of cardiac, renal, pulmonary, or hepatic disease.?? No history of infectious? diseases like hepatitis A, B, C, HIV or tuberculosis.? Patient is not on any anticoagulation [facility] Medical History DHARMESH I (cervical intraepithelial neoplasia I) ASCUS with positive high risk HPV cervical Hypertension Surgical History Hx of colonoscopy History of hemorrhoidectomy (~12/19/22) History of bilateral tubal ligation History of Family History Father HTN (hypertension) Heart attack Mother HTN (hypertension) Diabetes Heart disease Brother HTN (hypertension) Sister HTN (hypertension) Social History Household Members: Family Housing: House Alcohol intake: current Alcohol intake frequency: does not drink Alcohol type: beer Patient Tobacco Use Status: Never used Tobacco service: No Current occupational status: employed 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 Sexual orientation: Straight/Heterosexual Gender identity: Female Review of Systems Const Denies weight gain and Denies weight loss ENT Reports no additional complaints, Denies dysphagia and Denies odynophagia Card Reports no additional complaints Resp Reports no additional complaints GI Denies abdominal pain, Denies belching, Denies melena, Denies bloating, Denies change in bowel habits, Denies dysphagia, Denies excessive flatus, Denies dyspepsia, Denies heartburn, Denies diarrhea, Denies loose stools, Denies nausea, Denies odynophagia and Denies vomiting Musc Reports no additional complaints Neuro Reports no additional complaints Psych Reports no additional complaints Endo Reports no additional complaints Physical Exam Vital Signs: Last Vital Signs Pulse 70 03/16/24 09:39 BP 110/72 03/16/24 09:39 Pulse Ox 98 03/16/24 09:39 Oxygen Delivery Method Room Air 03/16/24 09:39 BMI result Body Mass Index 31.0 Const General: healthy appearing, no acute distress and well developed Nutritional Appearance: well nourished Orientation/consciousness: patient oriented x3 Resp Effort & Inspection: normal respiratory effort, able to speak in complete sentences, no tracheal deviation and symmetric chest movement Auscultation: clear to auscultation bilaterally Cardio Rate: regular rate Heart sounds: S1 normal heart sound present, S2 normal heart sound present, no gallops and no murmurs GI Inspection: Yes normal to inspection and No distended Palpation (GI): Soft to palpation, not firm, nontender and No hepatosplenomegaly present Auscultation: normal bowel sounds General: Yes no CVA tenderness Back/Spine/Pelvis Back: no CVA tenderness Skin General skin exam: elasticity normal, turgor normal and dry skin Neuro General: patient oriented x3 Psych Appearance: grossly normal Mental Status: mental status grossly normal Assessment & Plan Assessment & Plan (1) Screen for colon cancer: Code(s): Z12.11 - Encounter for screening for malignant neoplasm of colon Plan Patient denies any GI, cardiac or respiratory symptoms.? Denies any issues with anesthesia in the past.? Denies any history of sleep apnea.? No history infectious diseases in the past or present.? Not on any anticoagulation therapy.? No family or personal history of colon cancer or polyps.? Patient denies melena, hematochezia, unintentional weight loss or ribbon like stools.? Discussed at length the pre-procedure,? prep, diet & medications as well as what to expect prior, during and after the procedure.?? Stressed the importance of good bowel prep.? Recommended the use of Vaseline or Calmoseptine OTC & baby wipes with bowel movements to promote comfort.? ?Patient verbalizes under standing and agrees to plan of care.? She was given the opportunity to ask questions and all questions answered.? We will see her after the procedure.? Medications: New polyethylene glycol 3350 (Miralax) As directed by gastroenterology department at [facility] 238 grams PO ONCE 238 grams 0RF Z12.11 - Encounter for screening for malignant neoplasm of colon bisacodyl (Dulcolax (bisacodyl)) take 4 tabs at noon the day before your colonoscopy 20 mg (4 x 5 mg) PO ONCE 4 tabs 0RF 1 day Z12.11 - Encounter for screening for malignant neoplasm of colon Coding Level of Care Code New Pt Level 3 (49204) Diagnoses Screen for colon cancer Z12.11 Time Spent (min) 40 Comment 30 minutes spent with patient and additional 10 minutes spent reviewing her records
[2024-03-16 09:39] VITALS: BP 110/72; PULSE 70; O2SAT 98; BMI 31.0
== END 2024-03-16 10:47 | disposition home or self-care (01) ==
PROVIDERS: PCP Family Medicine; Visit Provider Nurse Practitioner Family
DX: Z12.11 Encounter for screening for malignant neoplasm of colon (principal); Z01.818 Encounter for other preprocedural examination
CPT/HCPCS: 99203

== ENCOUNTER → 2024-03-16 09:23 | Outpatient (BNVA) | payer MEDICAID, SELFPAY | PROVIDERS: PCP Family Medicine; Visit Provider Nurse Practitioner Family | DX: Z12.11 Encounter for screening for malignant neoplasm of colon (principal) | CPT/HCPCS: 99212 ==

== ENCOUNTER 2024-04-22 12:57 | Outpatient (AMB) | payer MEDICAID, SELFPAY ==
--- NOTE | 2024-04-22 13:10 | MHC.OFFVIS ---
Intake Visit Reasons: colpo results/DO NOT RS Underground Electrician Required: Yes Underground Electrician Language: Rn First Assistant Name: Joselin Marrero penicillin V Allergy (Unknown, Verified 03/16/24 09:38) hives HPI Comments Details: Presenting post colpo for follow-up. The patient is doing well with no complaints. The pathology showed the following: A. Endocervix, curettage: - Squamous epithelium within normal limits. - Rare small strips of endocervical epithelium within normal limits. B. Cervix, 1 o'clock, biopsy: - Mildly inflamed squamous mucosa with reactive changes. - No endocervical epithelium identified. C. Cervix, 5 o'clock, biopsy: - Mildly inflamed squamous mucosa with reactive changes. - No endocervical epithelium identified. D. Vaginal wall, 8 o'clock, biopsy: Low-grade squamous intraepithelial lesion (VAIN 1). E. Cervix, 9 o'clock, biopsy: - Squamous mucosa within normal limits. - No endocervical epithelium identified Pap smear was low-grade CHELSY/can not rule out high-grade CHELSY, HPV E6/E7 positive, HPV 18/45 positive, HPV 16 negative, vaginal biopsy VAIN 1 [facility] Medical History DHARMESH I (cervical intraepithelial neoplasia I) ASCUS with positive high risk HPV cervical Hypertension Surgical History Hx of colonoscopy History of hemorrhoidectomy (~12/19/22) History of bilateral tubal ligation History of Family History Father HTN (hypertension) Heart attack Mother HTN (hypertension) Diabetes Heart disease Brother HTN (hypertension) Sister HTN (hypertension) Social History Household Members: Family Housing: House Alcohol intake: current Alcohol intake frequency: does not drink Alcohol type: beer Patient Tobacco Use Status: Never used Tobacco service: No Current occupational status: employed 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 Sexual orientation: Straight/Heterosexual Gender identity: Female Review of Systems Const All systems reviewed & are unremarkable except as noted in HPI and below Reports as per HPI and Reports no additional complaints GI Reports no additional complaints Reports no additional complaints Assessment & Plan Assessment & Plan (1) LGSIL on Pap smear of cervix: Comment: Can not exclude HGSIL, HPV E6/E7 positive , HPV 18/45 positive, HPV 16 negative Colpo/biopsy/ECC= negative with VAIN 1 Code(s): R87.612 - Low grade squamous intraepithelial lesion on cytologic smear of cervix (LGSIL) Category: Medical Plan: Discussed with the patient the options of treatment including co testing at 12 months for diagnostic excision procedure . All pros and cons, risks and benefits of each were discussed with the patient, who decided to proceed with repeat co testing in 12 months. Instructions given the patient to schedule co testing appointment in 12 months. All questions answered, the patient verbalized understanding Coding Level of Care Code Est Pt Level 3 (05582) Diagnoses LGSIL on Pap smear of cervix R87.612
== END 2024-04-22 14:51 | disposition home or self-care (01) ==
PROVIDERS: PCP Family Medicine; Visit Provider Obstetrics & Gynecology
DX: R87.612 Low grade squamous intraepithelial lesion on cytologic smear of cervix (LGSIL) (principal)
CPT/HCPCS: 99213

== ENCOUNTER → 2024-04-22 12:57 | Outpatient (BNVA) | payer MEDICAID, SELFPAY | PROVIDERS: PCP Family Medicine; Visit Provider Obstetrics & Gynecology | DX: R87.612 Low grade squamous intraepithelial lesion on cytologic smear of cervix (LGSIL) (principal) | CPT/HCPCS: 99212 ==

== ENCOUNTER 2024-08-25 14:18 | Outpatient (REF) | payer MEDICAID, SELFPAY ==
--- NOTE | ~2024-08-25 | XR_ITS ---
EXAMINATION: XR HIP, LEFT CLINICAL INFORMATION: left hip pain COMPARISON: None available. TECHNIQUE: Two views of the left hip. FINDINGS: Alignment is anatomic. Mild hip joint space loss. No visible acute fracture or dislocation. No acute osseous findings in the visualized pelvis. No abnormal soft tissue calcification.. XR/XR hip LT min 2V IMPRESSION: Mild left hip arthritis. No radiographic evidence of acute fracture. Electronically signed by: Nikko Lobato MD 08/26/2024 03:01 PM SHEY WALDRON
== END 2024-08-25 14:19 | disposition home or self-care (01) ==
LOC: HO.HHCX 14:18
PROVIDERS: Visit Provider Internal Medicine
DX: M25.552 Pain in left hip (principal)
CPT/HCPCS: 73502

== ENCOUNTER 2024-09-01 06:59 | Day surgery (SDC) | payer MEDICAID, SELFPAY ==
[2024-08-26 13:52] VITALS: BMI 31.0
--- NOTE | 2024-08-31 09:37 | HO.ANESPROP2 ---
Documented by User: Fransisca Kim NP 08/31/24 09:37 HPI - Anesthesia Eval Consult details Narrative: 63yo F for Colonoscopy PMFSH Active Problems Active Problems: All Active Problems Bilateral shoulder bursitis (Acute) LGSIL on Pap smear of cervix (Acute) Hemorrhoids (Acute) Adnexal fullness (Acute) Well woman exam (Acute) ASCUS with positive high risk HPV cervical (Acute) ASCUS with positive high risk HPV (Acute) DHARMESH I (cervical intraepithelial neoplasia I) (Acute) Past Medical History Medical History DHARMESH I (cervical intraepithelial neoplasia I) ASCUS with positive high risk HPV cervical Hypertension Family History Family History Father HTN (hypertension) Heart attack Mother HTN (hypertension) Diabetes Heart disease Brother HTN (hypertension) Sister HTN (hypertension) Family history of problems with anesthesia: No Surgical History Surgical History History of loop electrical excision procedure (LEEP) Hx of colonoscopy History of hemorrhoidectomy (~12/19/22) History of bilateral tubal ligation History of History of Problems with Anesthesia: No Social History Social History Household Members: Family Housing: House Alcohol intake: current Alcohol intake frequency: does not drink Alcohol type: beer Patient Tobacco Use Status: Never used Tobacco Have you been hit, kicked, punched, or otherwise hurt by someone within the past year? 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 Sexual orientation: Straight/Heterosexual Gender identity: Female Meds Allergies Allergy/AdvReac Type Severity Reaction Status Date / Time penicillin V Allergy Unknown hives Verified 03/16/24 09:38 Home Medications ?Medication ?Instructions ?Recorded ?Confirmed ?Last Taken ?Type chlorthalidone 25 mg tablet 25 mg PO DAILY 03/16/24 08/26/24 08/31/24 History losartan 25 mg tablet 12.5 mg PO DAILY 03/16/24 08/26/24 08/31/24 History Exam Height,Weight and Vital Signs: Height 5 ft 1 in Weight 74.389 kg Assessment and Plan Assessment Anesthesia Assessment: Chart Reviewed Final Anesthetic Review Family History of Problems with Anesthesia: No History of Problems with Anesthesia: No Documented by User: Kae Antonio MD 09/01/24 08:50 PMFSH Past Medical History Medical History DHARMESH I (cervical intraepithelial neoplasia I) ASCUS with positive high risk HPV cervical Hypertension Family History Family History Father HTN (hypertension) Heart attack Mother HTN (hypertension) Diabetes Heart disease Brother HTN (hypertension) Sister HTN (hypertension) Surgical History Surgical History History of loop electrical excision procedure (LEEP) Hx of colonoscopy History of hemorrhoidectomy (~12/19/22) History of bilateral tubal ligation History of Social History Social History Household Members: Family Housing: House Alcohol intake: current Alcohol intake frequency: does not drink Alcohol type: beer Patient Tobacco Use Status: Never used Tobacco Have you been hit, kicked, punched, or otherwise hurt by someone within the past year? 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 Sexual orientation: Straight/Heterosexual Gender identity: Female Meds Allergies Allergy/AdvReac Type Severity Reaction Status Date / Time penicillin V Allergy Unknown hives Verified 03/16/24 09:38 Home Medications ?Medication ?Instructions ?Recorded ?Confirmed ?Last Taken ?Type chlorthalidone 25 mg tablet 25 mg PO DAILY 03/16/24 08/26/24 08/31/24 History losartan 25 mg tablet 12.5 mg PO DAILY 03/16/24 08/26/24 08/31/24 History Exam Airway Mallampati Class: II TM Dist: >3cm Neck ROM: Full Heart: rrr Lungs: cta Assessment and Plan Assessment Anesthesia Assessment: Anesthesia Plan Discussed Final Anesthetic Review NPO: Yes ASA Class: II Final Preanesthetic Review: No Changes in Pt Med Stat, Meds/Allgs Chart Reviewed, Consent Obtained/Reviewed and Anes Risks/Benef Reviewed Patient Risk: Low Procedure Risk: Low Anesthetic Plan Anesthetic Plan: MAC: Disposition: Standard PACU
[2024-09-01 07:44] VITALS: BP 137/86; PULSE 74; RESP 18; TEMP 36.1; O2SAT 97; BMI 31.4
[2024-09-01] MEDS: Lactated Ringers 1,000 ML 100 ML IVCONT (08:05)
--- NOTE | 2024-09-01 08:10 | P.HPSUR_ITS ---
Pre-Procedural Eval Section A - 24 Hr Update-Section A only Date of Service: 09/01/24 Section B - Complete if H&P > 30 days Chief Complaint: screening Relevant Family History (Specify if Yes): No Relevant Social History: None Present Medications: see Short Stay Collaborative assessment Medical History: Significant History (DHARMESH I (cervical intraepithelial neoplasia I) ASCUS with positive high risk HPV cervical Hypertension) History of Previous Operations: Relevant previous surgery/procedure and date(s) (History of loop electrical excision procedure (LEEP) Hx of colonoscopy History of hemorrhoidectomy (~12/19/22) History of bilateral tubal ligation History of ) Allergies: Allergies Allergy/AdvReac Type Severity Reaction Status Date / Time penicillin V Allergy Unknown hives Verified 03/16/24 09:38 Review of Systems Sugical H&P ROS: Negative: Constitution, Cardiovascular, Respiratory, Neurological, Psychiatric, Hem-Onc, Allergic/Immunologic, Gastrointestinal, Genitourinary, Musculoskeletal, Integumentary, Endocrine and Eyes/Ears/Nose/Thr oat Exam Surgical H&P Exam: Normal: HEENT, Normal: Heart, Normal: Lungs, Normal: Extremities, Normal: Abdomen, Normal: Skin and Normal: Neurological Plan Diagnosis/Plan: Unchanged I have reviewed the history and physical and performed a pertinent physical examination on my patient. No changes have occurred unless specified. Time Spent With Patient Time: Total time managing care of this patient today ____ minutes.
--- NOTE | 2024-09-01 09:19 | P.OPN-COLO_ITS ---
Colonoscopy Operative Note Operative Note Date of Service: 09/01/24 Narrative: Operative Information Procedure Description: Colonoscopy Indication: screening Anesthesia: MAC COLONOSCOPY Instrument: Olympus variable stiffness pediatric scope 190L Colonoscopy Monitoring: Vital signs and clinical assessment, continuous EKG monitoring, Pulse oximetry, Carbon Dioxide monitoring and blood pressure monitoring were done throughout the procedure. Colon withdrawal time was 10 minutes. Procedure: The patient was placed in the left lateral decubitis position and pre-procedure medications were administered. After a digital rectal examination of the ano-rectum, the video colonoscope was inserted into the rectum and advanced through the colon to the cecum/TI. The colonoscope was slowly withdrawn in a retrograde panoramic fashion and the colon mucosa was carefully examined including a retroflexed view of the rectum. Findings and interventions are described below. Procedure Difficulty: easy Findings: Terminal Ileum-normal Cecum: flat polyp 10 mm lifted with eleview and removed with cold snare Ascending Colon: normal Transverse Colon - 10-12 mm sessile polyp removed with cold snare Descending Colon:normal Sigmoid Colon: normal Rectum: Retroflexion with small internal hemorrhoids seen, grade I Anorectum - normal Intervention: cold snare with eleview lift and EMR, cold snare Colon preparation: [place] Bowel Preparation Scale Right colon; 2 Transverse colon: 2 Left colon; 1-2 (0 = Unprepared colon segment with mucosa not seen due to solid stool that cannot be cleared. 1 = Portion of mucosa of the colon segment seen, but other areas of the colon segment not well seen due to staining, residual stool and/or opaque liquid. 2 = Minor amount of residual staining, small fragments of stool and/or opaque liquid, but mucosa of colon segment seen well. 3 = Entire mucosa of colon segment seen well with no residual staining, small fragments of stool or opaque liquid) Impression and Post Procedure Diagnosis: colon polyps x 2 internal hemorrhoids Plan: High fiber diet leaflet Avoid straining at stool, epsom salts and sitz bath, anusol supps or cream Repeat Colonoscopy in 1-2 years due to areas of fair prep on the left side or earlier if clinically indicated Above findings were reviewed with the patient and relevant handouts were provided if indicated.
[2024-09-01 09:24] VITALS: BP 96/55; PULSE 72; RESP 16; TEMP 36.2; O2SAT 97
[2024-09-01 09:39] VITALS: BP 113/68; PULSE 72; RESP 16; TEMP 36.3; O2SAT 97
== END 2024-09-01 10:29 | disposition home or self-care (01) ==
PROVIDERS: PCP Family Medicine; Visit Provider Internal Medicine Gastroenterology
PROC: 0DJD8ZZ Inspection of Lower Intestinal Tract, Via Natural or Artificial Opening Endoscopic (ICD-10-PCS; CPT 45378; principal; 2024-09-01 09:10)
DX: Z12.11 Encounter for screening for malignant neoplasm of colon (principal); D12.0 Benign neoplasm of cecum; D12.3 Benign neoplasm of transverse colon; K64.0 First degree hemorrhoids; I10 Essential (primary) hypertension; N87.0 Mild cervical dysplasia; Z79.899 Other long term (current) drug therapy; Z88.0 Allergy status to penicillin; Z98.51 Tubal ligation status; Z98.890 Other specified postprocedural states
CPT/HCPCS: 45385; 45381; 88305; J2003; J2704

== ENCOUNTER → 2024-09-01 06:59 | Outpatient (BNV) | payer MEDICAID, SELFPAY | PROVIDERS: PCP Family Medicine; Visit Provider Internal Medicine Gastroenterology | DX: Z12.11 Encounter for screening for malignant neoplasm of colon (principal); K63.5 Polyp of colon; K64.0 First degree hemorrhoids | CPT/HCPCS: 45381; 45385 ==

== ENCOUNTER 2024-09-15 13:34 | Outpatient (AMB) | payer MEDICAID, SELFPAY ==
--- NOTE | 2024-09-15 13:37 | MHC.OFFVIS ---
Vital Signs 09/15/24 13:41 Height 5 ft 1 in Weight 162 lb 0.636 oz BMI 30.6 BP 125/68 Blood Pressure Location Lt brachial Position Sitting Pulse 68 Pulse Source Pulse Oximeter Intake Visit Reasons: s/p colon Intake Note: ESTABLISHED PATIENT Loan presents in office today for a scheduled s/p FUV colo. Patient reports she is doing well, states here today to review her colo results. She has no concerns today. Allergies penicillin V Allergy (Unknown, Verified 09/15/24 13:51) hives HPI HPI s/p colon: Details: LAST VISIT: Screen for colon cancer Plan Patient denies any GI, cardiac or respiratory symptoms.? Denies any issues with anesthesia in the past.? Denies any history of sleep apnea.? No history infectious diseases in the past or present.? Not on any anticoagulation therapy.? No family or personal history of colon cancer or polyps.? Patient denies melena, hematochezia, unintentional weight loss or ribbon like stools.? Discussed at length the pre-procedure,? prep, diet & medications as well as what to expect prior, during and after the procedure.?? Stressed the importance of good bowel prep.? Recommended the use of Vaseline or Calmoseptine OTC & baby wipes with bowel movements to promote comfort.? ?Patient verbalizes understanding and agrees to plan of care.? She was given the opportunity to ask questions and all questions answered.? We will see her after the procedure.? Medications New polyethylene glycol 3350 (Miralax) As directed by gastroenterology department at [facility] 238 grams PO ONCE 238 grams 0RF Z12.11 bisacodyl (Dulcolax (bisacodyl)) take 4 tabs at noon the day before your colonoscopy 20 mg (4 x 5 mg) PO ONCE 4 tabs 0RF 1 day Z12.11 COLONOSCOPY: Findings: Terminal Ileum-normal Cecum: flat polyp 10 mm lifted with eleview and removed with cold snare Ascending Colon: normal Transverse Colon - 10-12 mm sessile polyp removed with cold snare Descending Colon:normal Sigmoid Colon: normal Rectum: Retroflexion with small internal hemorrhoids seen, grade I Anorectum - normal Intervention: cold snare with eleview lift and EMR, cold snare Colon preparation: [place] Bowel Preparation Scale Right colon; 2 Transverse colon: 2 Left colon; 1-2 (0 = Unprepared colon segment with mucosa not seen due to solid stool that cannot be cleared. 1 = Portion of mucosa of the colon segment seen, but other areas of the colon segment not well seen due to staining, residual stool and/or opaque liquid. 2 = Minor amount of residual staining, small fragments of stool and/or opaque liquid, but mucosa of colon segment seen well. 3 = Entire mucosa of colon segment seen well with no residual staining, small fragments of stool or opaque liquid) Impression and Post Procedure Diagnosis: colon polyps x 2 internal hemorrhoids Plan: High fiber diet leaflet Avoid straining at stool, epsom salts and sitz bath, anusol supps or cream Repeat Colonoscopy in 1-2 years due to areas of fair prep on the left side or earlier if clinically indicated PATHOLOGY RESULTS: Diagnosis A. Cecum, polypectomy: Fragments of sessile serrated lesion/polyp; negative for cytologic dysplasia. B. Colon, transverse, polypectomy: Fragments of sessile serrated lesion/polyp; negative for cytologic dysplasia TODAY'S VISIT Patient is here today for follow-up and to discuss colonoscopy results. Patient denies any ill effects from the prep, anesthesia or procedure itself. Patient had suboptimal prep and will need to repeat colonoscopy in 1 year. Two sessile serrated polyps without high-grade dysplasia or carcinoma found in cecum and transverse colon. Patient reports that she is moving her bowels well without any issues. Denies being constipated. Patient reports that she did well with different prep last time. Patient states that she did GoLYTELY in the past. Patient denies melena, hematochezia. Denies any dyspepsia, dysphagia or odynophagia. [facility] Medical History (Updated 09/15/24 @ 14:00 by SHANAE mSith-) Sessile serrated polyp of colon DHARMESH I (cervical intraepithelial neoplasia I) ASCUS with positive high risk HPV cervical Hypertension Surgical History History of loop electrical excision procedure (LEEP) Hx of colonoscopy History of hemorrhoidectomy (~12/19/22) History of bilateral tubal ligation History of Family History Father HTN (hypertension) Heart attack Mother HTN (hypertension) Diabetes Heart disease Brother HTN (hypertension) Sister HTN (hypertension) Social History Household Members: Family Housing: House Alcohol intake: current Alcohol intake frequency: does not drink Alcohol type: beer Patient Tobacco Use Status: Never used Tobacco service: No Current occupational status: employed 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 Sexual orientation: Straight/Heterosexual Gender identity: Female Review of Systems Const Denies weight gain and Denies weight loss ENT Reports no additional complaints, Denies dysphagia and Denies odynophagia Card Reports no additional complaints Resp Reports no additional complaints GI Denies abdominal pain, Denies belching, Denies melena, Denies bloating, Denies change in bowel habits, Denies dysphagia, Denies excessive flatus, Denies dyspepsia, Denies heartburn, Denies diarrhea, Denies loose stools, Denies nausea, Denies odynophagia and Denies vomiting Musc Reports no additional complaints Neuro Reports no additional complaints Psych Reports no additional complaints Endo Reports no additional complaints Physical Exam Vital Signs: Last Vital Signs Pulse 68 09/15/24 13:41 BP 125/68 09/15/24 13:41 BMI result Body Mass Index 30.6 Const General: healthy appearing and no acute distress Nutritional Appearance: obese Orientation/consciousness: patient oriented x3 Resp Effort & Inspection: normal respiratory effort, able to speak in complete sentences, no tracheal deviation and symmetric chest movement Auscultation: clear to auscultation bilaterally Cardio Rate: regular rate Heart sounds: S1 normal heart sound present, S2 normal heart sound present, no gallops and no murmurs GI Inspection: Yes normal to inspection, No distended and Yes obesity Palpation (GI): Soft to palpation, not firm, nontender and No hepatosplenomegaly present Auscultation: normal bowel sounds General: Yes no CVA tenderness Back/Spine/Pelvis Back: no CVA tenderness Skin General skin exam: elasticity normal, turgor normal and dry skin Neuro General: patient oriented x3 Psych Appearance: grossly normal Mental Status: mental status grossly normal Assessment & Plan Assessment & Plan (1) Sessile serrated polyp of colon: Code(s): D12.6 - Benign neoplasm of colon, unspecified Category: Medical (2) Status post colonoscopy: Code(s): Z98.890 - Other specified postprocedural states Plan Patient will need to repeat colonoscopy in 1 year. Suboptimal prep and recommendation was made to repeat colonoscopy in 1 year. Patient prefers GoLYTELY as she gets better results from it. Will order GoLYTELY instead next time. Follow-up in 8 months, sooner on as needed basis. Patient will call our office if she will have any GI concerning symptoms. She is agreeable to current plan of care and verbalizes understanding of instructions. She was given the opportunity to ask questions and all questions answered. Thank you for allowing me to participate in her care Coding Level of Care Code Est Pt Level 3 (52312) Diagnoses Sessile serrated polyp of colon D12.6 Status post colonoscopy Z98.890 Time Spent (min) 30 Comment 20 minutes spent with patient and additional 10 minutes spent reviewing her records
[2024-09-15 13:41] VITALS: BP 125/68; PULSE 68; BMI 30.6
== END 2024-09-16 08:29 | disposition home or self-care (01) ==
PROVIDERS: PCP Family Medicine; Visit Provider Nurse Practitioner Family
DX: D12.6 Benign neoplasm of colon, unspecified (principal); Z98.890 Other specified postprocedural states
CPT/HCPCS: 99213

== ENCOUNTER → 2024-09-15 13:34 | Outpatient (BNVA) | payer MEDICAID, SELFPAY | PROVIDERS: PCP Family Medicine; Visit Provider Nurse Practitioner Family | DX: D12.6 Benign neoplasm of colon, unspecified (principal); Z98.890 Other specified postprocedural states | CPT/HCPCS: 99212 ==

== ENCOUNTER 2024-10-09 09:21 | Outpatient (REF) | payer MEDICAID, SELFPAY ==
--- NOTE | ~2024-10-09 | XR_ITS ---
EXAMINATION: XR PELVIS CLINICAL INFORMATION: M25.559 - Pain in unspecified hip COMPARISON: X-ray dated August 25, 2024 TECHNIQUE: AP view of the pelvis. FINDINGS: Bony pelvis is intact. Sclerosis and the sacroiliac joints bilaterally. No acute cortical disruption or malalignment in either hip. No gross lytic or blastic lesions. Punctate calcifications in the lower pelvis likely phlebolith. Focal calcification left gluteal region likely granuloma. XR/XR pelvis 1-2V IMPRESSION: No acute fracture. Negative exam. Electronically signed by: Ajit Hernández MD 10/14/2024 12:05 PM SHEY
== END 2024-10-09 09:22 | disposition home or self-care (01) ==
LOC: HO.HOSX 09:21
PROVIDERS: Visit Provider Orthopaedic Surgery
DX: M25.559 Pain in unspecified hip (principal); M70.62 Trochanteric bursitis, left hip
CPT/HCPCS: 72170; 99212

== ENCOUNTER 2024-10-09 12:30 | Outpatient (AMB) | payer MEDICAID, SELFPAY ==
--- NOTE | 2024-10-09 12:35 | MHC.OFFVIS ---
Vital Signs 10/09/24 12:42 Height 51 ft Weight 162 lb BMI 0.3 Intake Visit Reasons: NewProb- LT hip pain Intake Note: Loan is a 63 year old female who presents today as a new patient with complaints of left hip pain. Patient reports ongoing pain since July of 2024, denies injury. Patient reports that she has been taking Meloxicam for her pain, this provided good relief but pain resumed when discontinued. Allergies penicillin V Allergy (Unknown, Verified 09/15/24 13:51) hives HPI HPI NewProb- LT hip pain: Details: This is a 63-year-old woman with a history of left lateral hip pain. She denies injury. This has been off and on for couple months. He feels okay as long as she takes her NSAIDs but if she. She will have pain. She denies groin pain. She denies numbness and tingling. [facility] Medical History Sessile serrated polyp of colon DHARMESH I (cervical intraepithelial neoplasia I) ASCUS with positive high risk HPV cervical Hypertension Surgical History History of loop electrical excision procedure (LEEP) Hx of colonoscopy History of hemorrhoidectomy (~12/19/22) History of bilateral tubal ligation History of Family History Father HTN (hypertension) Heart attack Mother HTN (hypertension) Diabetes Heart disease Brother HTN (hypertension) Sister HTN (hypertension) Social History Household Members: Family Housing: House Alcohol intake: current Alcohol intake frequency: does not drink Alcohol type: beer Patient Tobacco Use Status: Never used Tobacco service: No Current occupational status: employed 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 No groin pain with hip range of motion. No gait abnormality. Results Reviewed Results Reviewed: I personally reviewed relevant radiographs. Normal radiographs left hip Assessment & Plan Assessment & Plan (1) Greater trochanteric bursitis of left hip: Code(s): M70.62 - Trochanteric bursitis, left hip Category: Medical Plan: Trochanteric bursitis of the left hip. She controls this with NSAIDs. If it worsens I would recommend physical therapy. I reviewed some stretching exercises with her. She can follow up p.r.n.. Orders: Orders XR pelvis 1-2V Today M25.559 - Pain in unspecified hip Coding Level of Care Code Est Pt Level 3 (44349) Diagnoses Greater trochanteric bursitis of left hip M70.62
== END 2024-10-09 15:25 | disposition home or self-care (01) ==
PROVIDERS: PCP Family Medicine; Visit Provider Orthopaedic Surgery
DX: M70.62 Trochanteric bursitis, left hip (principal)
CPT/HCPCS: 99213

== ENCOUNTER 2025-01-06 14:55 | Outpatient (REF) | payer MEDICAID, SELFPAY | END 2025-01-06 14:56 | disposition home or self-care (01) | LOC: HO.MAMMO 14:55 | PROVIDERS: PCP Internal Medicine; Visit Provider Internal Medicine | DX: Z12.31 Encounter for screening mammogram for malignant neoplasm of breast (principal) | CPT/HCPCS: 77063; 77067 ==

== ENCOUNTER → 2025-01-06 15:15 | Outpatient (BNV) | payer MEDICAID, SELFPAY | PROVIDERS: PCP Internal Medicine; Visit Provider Internal Medicine | DX: Z12.31 Encounter for screening mammogram for malignant neoplasm of breast (principal) | CPT/HCPCS: 77063; 77067 ==

== ENCOUNTER 2025-01-15 14:09 | Outpatient (REF) | payer MEDICAID, SELFPAY ==
--- NOTE | ~2025-01-15 | XR_ITS ---
EXAMINATION: XR CHEST 2 VIEWS HISTORY: 64 y.o F with productive cough COMPARISON: Comparison is made with the prior examination dated 03/05/2023. FINDINGS: PA and lateral views of the chest are submitted. There is a small patchy opacity in the right middle lobe, suspicious for pneumonia. The left lung is clear. There is no pleural effusion, pneumothorax, or pulmonary vascular congestion. The heart is normal in size. There is degenerative disc disease of the spine. XR/XR chest 2V IMPRESSION: Findings suspicious for right middle lobe pneumonia. Follow-up is recommended to document resolution. Electronically signed by: Angel Herrera MD 01/15/2025 02:54 PM EDT
--- OUTSIDE RECORDS SUMMARY | 2025-01-15 14:30 | XMS_ITS | Encounter Summary ---
Author Organization [facility] Address [address] [place] [address] [place] [address] Care Team Providers Care Art Framing Manager Name Role Phone Amanda Bales MD Primary Care Provider [phone] Eben [place] PharmD Unavailable [phone] Encounter Details Date Type Department Care Team (Late st Contact Info) Description 10/26/2022 Abstract [facility] [address] [place] [id number] Amanda Bales MD [address] [place] [id number] Social History Tobacco Use Types Packs/Day Years Used Date Smoking Tobacco: Never Assessed Comments Unknown Sex and Gender Information Value Date Recorded Sex Assigned at Female 07/30/2022 10:18 AM EDT Legal Sex Female 10:18 AM EDT Gender Identity Female 07/30/2022 10:18 AM EDT Sexual Orientation Straight 07/30/2022 10 :18 AM EDT documented as of this encounter Plan of Treatment Upcoming Encounters Date Type Department Care Team (Late st Contact Info) Description 01/27/2025 10:30 AM EDT Office Visit [facility] [address] [place] [address] [phone] Amanda Bales MD [address] [place] [phone] documented as of this encounter Visit Diagnoses Not on filedocumented in this encounter Care Teams Art Framing Manager Relationship Specialty Start Date End Date Amanda Bales MD [address] [place] [address] PCP - General Family Medicine 09/30/18 Eben [place], Sarai [address] [place] [address] Pharmacist Internal Medicine 07/19/23 04/08/24 documented as of this encounter
--- OUTSIDE RECORDS SUMMARY | 2025-01-15 14:30 | XMS_ITS | Encounter Summary ---
Author Organization [facility] [employer] Address [address] [place] [address] 7 [place] [address] Care Team Providers Care Hospital Admitting Clerk Name Role Phone Amanda Bales MD Primary Care Provider [phone] Reason for Visit * Reason Onset Date Comments Appointment Request 12/10/2024 Encounter Details Date Type Department Care Team ([facility] st Contact Info) Description 12/10/2024 Telephone [facility] [address] [place], [place] [phone] Amanda Bales MD [address] [place] [address] Appointment Request Social History Tobacco Use Types Packs/Day Years Used Date Smoking Tobacco: Never Passive Smoke Exposure: Never Smokeless Tobacco: Never Alcohol Use Standard Drinks/Week Comments Never 0 (1 standard drink = 0.6 oz pur e alcohol) Depression Answer Date Recorded Patient Health Questionnaire-9 Score 1 2023 Patient Health Questionnaire-9 Score 1 2023 Last PHQ-9: Questionnaire Data Not on file 0 2023 Housing Stability Answer Date Recorded What is your housing situation today? I have lucy wallace 12/12/[address] you li ve. Do you have problems with any of the following? None of the above 12/12/2023 Food Insecurity Answer Date Recorded Within the past 12 months, y ou worried that your food would run out before you got money to buy more: Never True 12/12/2023 Within the past 12 months,th e food you bought just didn't last and you didn't have enough money to get more: Never True Transportation Answer Date Recorded In the past 12 months, has l ack of transportation kept you from medical appts, meetings, work or from getting things needed for daily living? No 12/12/2023 Utilities Answer Date Recorded In the past 12 months, has t he electric, gas, oil or water company threatened to shut off services in your home? No 12/12/2023 Depression Answer Date Recorded Patient Health Questionnaire-2 Score 0 2023 Comments Unknown Sex and Gender Information Value Date Recorded Sex Assigned at Female 07/30/2022 10:18 AM EDT Legal Sex Female 10:18 AM EDT Gender Identity Female 07/30/2022 10:18 AM EDT Sexual Orientation Straight 07/30/2022 10 :18 AM EDT documented as of this encounter Miscellaneous Notes * Telephone Encounter - Salbador Cerna - 12/10/2024 10:01 AM EDT Tc from pt requesting to Schedule Apt with PCP. Pt would willis to have a check up states that they haven't seen the Doctor in a while. Last Apt with PCP was 04/21/24. Contact pt at [phone] documented in this encounter Plan of Treatment Upcoming Encounters Date Type Department Care Team (Late st Contact Info) Description 01/27/2025 10:30 AM EDT Office Visit [facility] [address] [place] [address] Amanda Bales MD [address] [place] [address] documented as of this encounter Goals Goal Patient Goal Type Associated Problems Recent Progress Patient-Stated? Author Blood Pressure < 140/90 Blood Pressure 143/83( 025 1:38 PM EDT) No Eben [place], RobinsonD documented as of this encounter Visit Diagnoses Not on filedocumented in this encounter Additional Health Concerns Assessment Noted Time PHQ-9 Depression Total Score: 1 12/19/19 24 11:33 AM EDT documented as of this encounter Care Teams Hospital Admitting Clerk Relationship Specialty Start Date End Date Amanda Bales MD [address] [place] [address] PCP - General Family Medicine 09/30/18 documented as of this encounter
--- OUTSIDE RECORDS SUMMARY | 2025-01-15 14:30 | XMS_ITS | Encounter Summary ---
Author Organization [facility] Address [address] [place] [address] 7 [place] [address] Care Team Providers Care School Guidance Counselor Name Role Phone Amanda Bales MD Primary Care Provider [phone] Reason for Visit * Reason Comments Pre-visit Planning SDOH negative, Tobac co screening negative Encounter Details Date Type Department Care Team ([facility] st Contact Info) Description 01/14/2025 Patient Outreach [facility] [address] [place] [address] Amanda Bales MD [address] [place] [address] Pre-visit Planning (SDOH negative, Tobacco screening negative) Social History Tobacco Use Types Packs/Day Years [...] housing situation today? I have lucy wallace 01/14/[address] you li ve. Do you have problems with any of the following? None of the above 01/14/2025 Food Insecurity Answer Date Recorded Within the past 12 months, y ou worried that your food would run out before you got money to buy more: Never True 01/14/2025 Within the past 12 months,th e food you bought just didn't last and you didn't have enough money to get more: Never True Transportation Answer Date Recorded In the past 12 months, has l ack of transportation kept you from medical appts, meetings, work or from getting things needed for daily living? No 01/14/2025 Utilities Answer Date Recorded In the past 12 months, has t he electric, gas, oil or water company threatened to shut off services in your home? No 01/14/2025 Depression Answer Date Recorded Patient Health Questionnaire-2 Score 0 2023 Internet Access Answer Date Recorded Internet Access Q1 Yes 01/14/2025 Internet Access Q2 Not on file 01/14/2025 Comments Unknown Sex and Gender Information Value Date Recorded Sex Assigned at Female 07/30/2022 10:18 AM EDT Legal Sex Female 10:18 AM EDT Gender Identity Female 07/30/2022 10:18 AM EDT Sexual Orientation Straight 07/30/2022 10 :18 AM EDT documented as of this encounter Progress Notes * Kath Blackmon - 01/14/2025 10:02 AM EDT CC Kath Jenkins placed successful outbound call to patient for pre-visit planning. Patient name and confirmed. Patient confirms appt date and time, and has transportation arrangements. Biggest concern for appointment at this time is constant cough. Appropriate screenings completed in anticipationof appointment. documented in this encounter Plan of Treatment Upcoming Encounters Date Type Department Care Team (Late st Contact Info) Description 01/27/2025 10:30 AM EDT Office Visit [facility] [address] [place] [phone] Amanda Bales MD [address] [place] [address] documented as of this encounter Goals Goal Patient Goal Type Associated Problems Recent Progress Patient-Stated? Author Blood Pressure < 140/90 Blood Pressure 143/83( 025 1:38 PM EDT) No Eben [place], PharmD documented as of this encounter Visit Diagnoses Not on filedocumented in this encounter Additional Health Concerns Assessment Noted Time PHQ-9 Depression Total Score: 1 12/19/19 24 11:33 AM EDT documented as of this encounter Care Teams School Guidance Counselor Relationship Specialty Start Date End Date Amanda Bales MD [address] [place] [address] PCP - General Family Medicine 09/30/18 documented as of this encounter
--- OUTSIDE RECORDS SUMMARY | 2025-01-15 14:30 | XMS_ITS | Clinical Summary ---
Author Organization [employer] Address [address] [place] [address] 7 [place] [address] Care Team Providers Care Account Development Manager Name Role Phone Amanda Bales MD Primary Care Provider [phone] Allergies Active Allergy Reactions Criticality Noted Date Comments Penicillins Hives Medium 10/06/2010 Other reaction(s): unspecified Medications cetirizine (ZyrTEC) 10 MG tablet TAKE 1 TABLET BY MOUTH EVERY MORNING 90 tablet 3 4 Active losartan (Cozaar) 25 MG tablet TAKE 1/2 TABLET BY MOUTH EVERY DAY 45 tablet 3 5 Active chlorthalidone (Hygroton) 25 MG tabletIndications :Primary hypertension TAKE 1 TABLET BY MOUTH EVERY DAY 90 tablet 3 5 Active meloxicam (Mobic) 15 MG tabletIndications :Left hip pain TAKE 1 TABLET BY MOUTH EVERY DAY 30 tablet 5 Active Active Problems Problem Noted Date Diagnosed Date Left hip pain 08/25/2024 Assessment & Plan (08/25/2024 1:54 PM EST): Patient with c/o moderate to severe left hip pain in the absence of any injury for > 2 weeks now, when severe the pain can be as high as 10/10 On exam there is tenderness to palpation left hip joint Etiology ? Bursitis ? Plan: Start meloxicam, Plain films left hip Ortho eval for consideration of steroid injection since it is interfering with her ADLS Nocturnal dyspnea 09/22/2023 Assessment & Plan (12/22/2023 11:45 AM EDT): - ?FLORESITA - sleep study is ordered; check its status Assessment & Plan (09/22/2023 6:29 PM EST): - ?FLORESITA - sleep study is ordered; check its status Obesity 06/24/2023 Assessment & Plan (12/22/2023 11:38 AM EDT): - sleep study is ordered in May 2023; encouraged to schedule appt - lifestyle modification Assessment & Plan (09/22/2023 6:29 PM EST): - sleep study is ordered - lifestyle modification Allergic rhinitis 03/10/2023 Assessment & Plan (03/10/2023 6:54 AM EDT): - she dislikes nasal spray - Rx cetirizine - use hypoallergenic skin care, laundry, and cleaning product Prediabetes 03/10/2023 Assessment & Plan (08/25/2024 1:52 PM EST): A1c 6.2 Assessment & Plan (09/22/2023 6:28 PM EST): - 11/29/22 A1C 5.7% - continue working on lifestyle modifications - annual screening Assessment & Plan (03/10/2023 6:56 AM EDT): - 11/29/22 A1C 5.7% - continue working on lifestyle modifications - annual screening Cardiovascular risk factor 03/10/2023 Assessment & Plan (12/22/2023 11:49 AM EDT): - 11/29/22 TC 171; HDL 47; LDL 107; TG 84 - Last 10-year ASCVD risk was between 5 and 7.5% (with lipid profile from November 2022 and BP in Aug 2023); may consider moderate intensity statin - Most recent 10-year ASCVD risk with most recent lipid profile in Aug 2023 and BP today is < 5%. Improved. - continue working on lifestyle modification - consider coronary calcium score if it becomes > 5% Assessment & Plan (09/22/2023 6:28 PM EST): - Risk factors: + HTN; age; - dyslipidemia; tobacco; diabetes - 11/29/22 TC 171; HDL 47; LDL 107; TG 84 - 10-year ASCVD risk is between 5 and 7.5% (with BP today); may consider moderate intensity statin - continue working on lifestyle modification - pt dislikes medication - consider coronary calcium score Assessment & Plan (03/10/2023 7:01 AM EDT): - Risk factors: + HTN; age; - dyslipidemia; tobacco; diabetes - 11/29/22 TC 171; HDL 47; LDL 107; TG 84 - ASCVD risk 7% (with BP today); may consider moderate intensity statin - if her BP improves, her risk will be lower and statin is not indicated - continue working on lifestyle modification Cervical dysplasia 11/05/2022 Assessment & Plan (09/22/2023 6:28 PM EST): ASCUS in 2008. NILM since 2010. 05/10/[address] Torrez. NILM with positive high-risk HPV 05/20/[address] Jasso. ASCUS with positive high-risk HPV. 10/06/18 Pap NILM with positive high-risk HPV 04/30/20 Pap by [facility], Dr. Snyder. ASCUS with positive high-risk HPV 07/21/20 Colposcopy / ECC DHARMESH-1 09/09/20 LEEP and cone Mild dysplasia 10/02/[address] Snyder ASCUS with positive high-risk HPV 10/31/21 Colposcopy / ECC No atypia 11/26/[address] Snyder ASCUS with positive high-risk HPV 02/18/23 Colposcopy / ECC LGSIL / DHARMESH-1 Continue following up with [facility] Assessment & Plan (06/24/2023 10:14 AM EDT): ASCUS in 2008. NILM since 2010. 05/10/[address] Torrez. NILM with positive high-risk HPV 05/20/[address] Jasso. ASCUS with positive high-risk HPV. 10/06/18 Pap NILM with positive high-risk HPV 04/30/20 Pap by [facility], Dr. Snyder. ASCUS with positive high-risk HPV 07/21/20 Colposcopy / ECC DHARMESH-1 09/09/20 LEEP and cone Mild dysplasia 10/02/[address] Snyder ASCUS with positive high-risk HPV 10/31/21 Colposcopy / ECC No atypia 11/26/[address] Snyder ASCUS with positive high-risk HPV 02/18/23 Colposcopy / ECC LGSIL / DHARMESH-1 Continue following up with [facility] Assessment & Plan (03/10/2023 6:53 AM EDT): ASCUS in 2008. NILM since 2010. 05/10/[address] Torrez. NILM with positive high-risk HPV 05/20/[address] Jasso. ASCUS with positive high-risk HPV. 10/06/18 Pap NILM with positive high-risk HPV 04/30/20 Pap by [facility], Dr. Snyder. ASCUS with positive high-risk HPV 07/21/20 Colposcopy / ECC DHARMESH-1 09/09/20 LEEP and cone Mild dysplasia 10/02/[address] Snyder ASCUS with positive high-risk HPV 10/31/21 Colposcopy / ECC No atypia 11/26/[address] Snyder ASCUS with positive high-risk HPV 02/18/23 Colposcopy / ECC LGSIL / DHARMESH-1 Continue following up with [facility] Assessment & Plan (11/05/2022 4:44 AM EST): ASCUS in 2008. NILM since 2010. 05/10/[address] Torrez. NILM with positive high-risk HPV 05/20/ Pap by Dr. Jasso. ASCUS with positive high-risk HPV. 10/06/18 Pap NILM with positive high-risk HPV 04/30/20 Pap by [facility] Snyder. ASCUS with positive high-risk HPV 07/21/20 Colposcopy / ECC DHARMESH I 09/09/20 LEEP and cone Mild dysplasia 10/02/[address] Snyder ASCUS with positive high-risk HPV 10/31/21 Colposcopy / ECC No atypia Continue following up with [facility] Chronic left shoulder pain 11/05/2022 Assessment & Plan (12/22/2023 11:41 AM EDT): - degenerative change on X-ray - pt has tried PT and was doing home exercise program - refer to orthopedist for further evaluation and management - continue judicious use of NSAIDs Assessment & Plan (11/11/2022 10:34 AM EST): - degenerative change on X-ray - pt has elected conservative management - continue home exercising program Hemorrhoids 11/05/2022 Assessment & Plan (06/24/2023 10:18 AM EDT): - external hemorrhoids - prevent constipation. Recommended fiber-rich diet - s/p hemorrhoidectomy by Dr. Smith on 12/20/22 Assessment & Plan (03/10/2023 6:50 AM EDT): - s/p hemorrhoide[place] Dr. Osman [place] [facility] [place] 12/19/22 - avoid prolonged sitting - prevent constipation with fiber-rich and healthy diet Assessment & Plan (11/11/2022 7:21 AM EST): - external hemorrhoids - prevent constipation. Recommended fiber-rich diet - Mantoux: positive 11/04/2022 Assessment & Plan (11/11/2022 10:35 AM EST): Hx positive PPD Negative T spot TB on 12/17/14 Personal history of COVID-19 11/04/2022 Hypertension 02/14/2015 Assessment & Plan (12/22/2023 11:45 AM EDT): -Goal BP <150/90 per JNC-8 and < 130/80per ACC/AHA guideline (Treatment threshold >= 140/90) -BP control has improved -Co-managed with pharmacist / CDTM, last seen in Oct 2023 -Treatment Hx: hydrochlorothiazide was changed to chlorthalidone in 2014 -Continue working on lifestyle modifications -Continue Chlorthalidone 25 mg daily -Continue losartan 12.5 mg daily -No combination drug is available; may consider losartan - hydrochlorothiazide (but hydrochlorothiazide dose is 50 mg) -Continue checking BP at home -Follow up in 3-4 mo, sooner if any problem arises Assessment & Plan (09/22/2023 6:25 PM EST): -Goal BP <150/90 per JNC-8 and < 130/80per ACC/AHA guideline (Treatment threshold >= 140/90) -BP suboptimal control -Treatment Hx: hydrochlorothiazide was changed to chlorthalidone in 2014 -Continue working on lifestyle modifications -Continue Chlorthalidone 25 mg daily -Start losartan 12.5 mg daily and titrate up to the goal -Continue checking BP at home -Follow up in 3-4 mo, sooner if any problem arises -Questionable medication adherence. Referred to [facility]. Assessment & Plan (06/24/2023 10:15 AM EDT): -Goal BP <150/90 per JNC-8 and < 130/80per ACC/AHA guideline (Treatment threshold >= 140/90) -BP not at goal -Treatment Hx: hydrochlorothiazide was changed to chlorthalidone in 2014 -Continue working on lifestyle modifications -Continue current medications: Chlorthalidone 25 mg daily -Continue checking BP at home -Follow up in 3-6 mo, sooner if any problem arises -Questionable medication adherence. Referred to [facility]. Assessment & Plan (03/10/2023 6:48 AM EDT): -Goal BP <150/90 per JNC-8 and < 130/80per ACC/AHA guideline (Treatment threshold >= 140/90) -BP not at goal -Treatment Hx: hydrochlorothiazide was changed to chlorthalidone in 2014 -Continue working on lifestyle modifications -Continue current medications: Chlorthalidone 25 mg daily -Continue checking BP at home -Follow up in 3-6 mo, sooner if any problem arises -Questionable medication adherence. Refer to [facility]. Assessment & Plan (11/05/2022 4:34 AM EST): -Goal BP <140/90 per JNC-8 and < 130/80per ACC/AHA guideline (Treatment threshold >= 140/90) -Treatment Hx: hydrochlorothiazide was changed to chlorthalidone in 2014 -Continue working on lifestyle modifications -Continue current medications: Chlorthalidone 25 mg daily -Continue checking BP at home -Follow up in 3-6 mo, sooner if any problem arises Tubular adenoma of colon 12/25/2013 Assessment & Plan (11/05/2022 4:36 AM EST): - Tubular adenoma of colon in November 2013 - Normal colonoscopy by Dr. Reid on 04/22/19, recommended to repeat in 5 years due to Hx tubular adenoma Encounters Date Type Department Care Team Description 01/15/2025 2:20 PM EDT Office Visit [facility] [address], [place] [phone] Productive cough (Primary Dx) 01/14/2025 Patient Outreach [facility] [address] [place], [place] [phone] Amanda Bales MD Pre-visit Planning (SDOH negative, Tobacco screening negative) 01/06/2025 Orders Only [facility] [address], [place] [phone] Fredrick Pelaez MD 12/14/2024 Refill [facility] [address], [place] [phone] Amanda Bales MD Left hip pain 12/11/2024 Population Health Risk Score [facility] ([facility] Department [address] [phone] Provider, Population Health Generic 12/10/2024 Telephone [facility] [address], [place] [phone] Amanda Bales MD Appointment Request 11/16/2024 Refill [facility] [address], [place] [phone] Amanda Bales MD Left hip pain 10/22/2024 Refill [facility] [address], [place] [phone] Amanda Bales MD Primary hypertension 10/20/2024 Refill [facility] [address] [place] [address] Amanda Bales MD 10/18/2024 Refill [facility] [address] [place] [address] Amanda Bales MD Left hip pain from Last 3 Months Immunizations Name Administration Dates Next Due Influenza, Split (incl. purified surface antigen ) 10/07/2012 TD (adult), 2 Lf tetanus tox oid, preservative free, adsorbed 03/30/2021 Tdap 12/23/2009 Zoster, Recombinant 10/30/2023,07/19/2023 Social History Tobacco Use Types Packs/Day Years Used Date Smoking Tobacco: Never Passive Smoke Exposure: Never Smokeless Tobacco: Never Tobacco Cessation:Counseling Given: Not Answered Alcohol Use Standard Drinks/Week Comments Never 0 [...] Orientation Straight 07/30/2022 10 :18 AM EDT Last Filed Vital Signs Vital Sign Reading Time Taken Comments Blood Pressure 143/83 01/15/2025 1:38 PM EDT Pulse 106 01/15/2025 1:38 PM EDT Temperature 36.8 ??C (98.2 ??F) 01/15/2025 1:38 PM ED T Respiratory Rate 20 01/15/2025 1:38 PM EDT Oxygen Saturation 92% 01/15/2025 1:38 PM EDT Inhaled Oxygen Concentration - - Weight 72.4 kg (159 lb 9.6 oz) 01/15/2025 1:38 P M EDT Height 149.9 cm (4' 11 ) 08/25/2024 1:43 PM EST Body Mass Index 32.24 08/25/2024 1:43 PM EST Plan of Treatment Upcoming Encounters Date Type Department Care Team (Late st Contact Info) Description 01/27/2025 10:30 AM EDT Office Visit [facility] [address] [place] [address] Amanda Bales MD [address] [place] [address] Health Maintenance Due Date Last Done Comments CT Colonography 1960 FIT DNA/Cologuard 1960 FIT 1960 FOBT 1960 Sigmoidoscopy 1960 Alcohol/Substance Use Screening 1974 Pneumococcal Vaccine: 50+ Years (1 of 1 - PCV) 2012 COVID-19 Vaccine ( season) 2024 09/21/2021, 02/16/2021, 01/26/2021 Influenza Vaccine (#1) 2024 10/07/2012 Depression Screening 12/18/2024 2023, 12/19/19 24 Diabetes: Hemoglobin A1C 08/25/202508/25/2 024, 09/20/2023, 11/29/2022, Additional history exists Tobacco Screening 08/25/2025 08/25/2024 SDOH Screening 01/14/2026 01/14/2025 Pap Smear 01/01/2027 01/02/2024, 0303/2023, 09/28/2021 Mammogram 01/06/2027 01/06/2025, 10/01, 10/19/2022, Additional history exists Colonoscopy 09/01/2027 09/01/2024, 04/06/2019 Colorectal Cancer Screening 09/01/2027 Cervical Cancer Screening 12/05/2027 HPV/Cotest 12/05/2027 12/04/2022, 09/01, 09/28/2021, Additional history exists Lipid Panel 09/20/2028 09/20/2023, 10/2022, 03/30/2021 DTaP/Tdap/Td Vaccines (3 - Td or Tdap) 03/30/2031 03/30/2021, 12/23/2009 RSV Patients and Patients Aged 60 years or older (1 - 1-dose 75+ series) 2037 Zoster Vaccines Completed 10/30/2023, 07/19/2023 HIV Screening Completed 01/02/2024 Hepatitis C Screening Completed 01/02/2024 HIB Vaccines Aged Out No longer eligi ble based on patient's age to complete this topic HPV Vaccines Aged Out No longer eligi ble based on patient's age to complete this topic Hepatitis A Vaccines Aged Out No long er eligible based on patient's age to complete this topic Hepatitis B Vaccines Aged Out No long er eligible based on patient's age to complete this topic IPV Vaccines Aged Out No longer eligi ble based on patient's age to complete this topic Meningococcal Vaccine Aged Out No laura osmani eligible based on patient's age to complete this topic RSV under 20 months Aged Out No longe r eligible based on patient's age to complete this topic Rotavirus Vaccines Aged Out No longer eligible based on patient's age to complete this topic Goals Goal Patient Goal Type Associated Problems Recent Progress Patient-Stated? Author Blood Pressure < 140/90 Blood Pressure 143/83( 025 1:38 PM EDT) Eben Solo PharmD Procedures Procedure Name Priority Date/Time Associated Diagnosis Comments POCT INFLUENZA B (ID NOW RAPID MOLECULAR) Routine 01/15/2025 2:02 PM EDT Productive cough POCT INFLUENZA A (ID NOW RAPID MOLECULAR) Routine 01/15/2025 2:02 PM EDT Productive cough POCT RAPID COVID ANTIGEN Routine 01/15/2025 2:02 PM EDT Productive cough BI MAMMOGRAM SCREENING TOMOSYNTHESIS BILATERAL Routine 01/06/2025 3:00 PM EDT HM COLONOSCOPY Routine 09/01/2024 POCT GLYCATED HEMOGLOBIN, TOTAL Routine 08/25/2024 2:02 PM EST Prediabetes LIPID PANEL WITH REFLEX TO DIRECT LDL Routine 09/20/2023 10:28 AM EST Primary hypertension HPV MRNA E6/E7 REFLEX TO HPV 16, 18/45 Routine 12/04/2022 3:20 PM EST PAP SMEAR Routine 12/04/2022 3:20 PM EST from Last 3 Months or Most Recently Relevant to Health Maintenance Results * Influenza B (ID NOW Rapid Molecular) (01/15/2025 2:02 PM EDT) Pathologist [facility] Influenza B Negative Negative, Indeterminate [facility] Swab 01/15/2025 2:02 PM EDT [facility] SHAKE OUT WORKER POINT OF CARE TEST ENTER/EDIT ORDERABLES Final Result [facility] [address] [place] [phone] * Influenza A (ID NOW Rapid Molecular) (01/15/2025 2:02 PM EDT) Pathologist [facility] Influenza A Negative Negative, Indeterminate [facility] Swab 01/15/2025 2:02 PM EDT Result [facility] SHAKE OUT WORKER POINT OF CARE TEST ENTER/EDIT ORDERABLES Final Result Performing Organization Address [facility] de Phone Number [facility] [address] [place] [phone] * POCT Rapid COVID Ag (01/15/2025 2:02 PM EDT) Rapid COVID Ag Negative [facility] Swab 01/15/2025 2:02 PM EDT Result [facility] SHAKE OUT WORKER POINT OF CARE TEST ENTER/EDIT ORDERABLES Final Result Performing Organization Address [facility] de Phone Number [facility] [address] [place] [phone] * BI Mammogram Screening Tomosynthesis Bilateral (01/06/2025 3:00 PM EDT) Anatomical Region Laterality Modality Breast Bilateral Mammography 01/06/2025 3:00 PM EDT Narrative 01/12/2025 4:34 PM EDT ? [facility] ? [address] ?[place] [address] ?[phone] ? Mammography Report ? Signed ? Patient: Loan Raphael ?MR#: [id number] ?? [id number] ? : 1960 ?Acct:[id number] ? Age/Sex: 64 / F ?ADM Date: 04/09/25 ? Loc: HO.MAMMO ? Attending Dr: Fredrick Dan MD ? Ordering Physician: Fredrick Dan MD ?Resu ?? lts: 1Negative ? Date of Service: 01/06/25 ?Follow Up: 1 Year From Orig ?? inal Mammogram ? Procedure(s): MM tomosynthesis screening BI ?? Accession Number(s): [id number] ? cc: Fredrick Dan MD ? EXAMINATION: ?? MM SCREENING DIGITAL BREAST TOMOSYNTHESIS, BILATERAL ? CLINICAL INFORMATION: ? Screening. Asymptomatic. ? COMPARISON: ?? Mammography: Comparison is made with available priors ? TECHNIQUE: ?? Digital breast mammography with tomosynthesis is performed in both the ?? craniocaudal and mediolateral oblique views along with computer-aided ?? detection (CAD). ? FINDINGS: ?? The breasts are heterogeneously dense, which may obscure small masses ?? (ACR BI-RADS breast composition Category c). ? There are no significant masses, abnormal calcifications, or other ?? abnormalities. ? MM/MM tomosynthesis screening BI ?? IMPRESSION: ?? No mammographic evidence of malignancy. ? ASSESSMENT: ? BI-RADS BI-RADS 1 - Negative ? RECOMMENDATION: ?? Routine annual mammography screening. ? 1 year F/U ? This examination should not preclude the clinical evaluation of a ?? suspicious palpable abnormality. ? This patient's information was entered into a reminder system with a ?? target due date for their next mammogram. ? Electronically signed by: ??Merline Michelle DO ??01/12/2025 04:31 PM EDT ?? RP ? Dictated By: ?Merline Michelle DO ? Signed By: ?<Electronically signed by Merline Michelle, DO in OV> ? 01/12/25 1631 ? DD/ 1500 ? TD/TT: 01/06/25 1513 ? Licensed Physical Therapist: ? Procedure Note Donotuseinterpreter, Image - 01/12/2025 [facility] [address] [place], [place] [address] Mammography Report Signed Patient: Loan Raphael AMR#: [id number] : 1960Acct:[id number] Age/Sex: 64 / FADM Date: 01/06/25 Loc: HO.MAMMO Attending Dr: Fredrick Dan MD Ordering Physician: Fredrick Danesu lts: 1Negative Date of Service: 01/06/25Follow Up: 1 Year From Orig inal Mammogram Procedure(s): MM tomosynthesis screening BI Accession Number(s): [id number] cc: Fredrick Dan MD EXAMINATION: MM SCREENING DIGITAL BREAST TOMOSYNTHESIS, BILATERAL CLINICAL INFORMATION: Screening. Asymptomatic. COMPARISON: Mammography: Comparison is made with available priors TECHNIQUE: Digital breast mammography with tomosynthesis is performed in both the craniocaudal and mediolateral oblique views along with computer-aided detection (CAD). FINDINGS: The breasts are heterogeneously dense, which may obscure small masses (ACR BI-RADS breast composition Category c). There are no significant masses, abnormal calcifications, or other abnormalities. MM/MM tomosynthesis screening BI IMPRESSION: No mammographic evidence of malignancy. ASSESSMENT: BI-RADS BI-RADS 1 - Negative RECOMMENDATION: Routine annual mammography screening. 1 year F/U This examination should not preclude the clinical evaluation of a suspicious palpable abnormality. This patient's information was entered into a reminder system with a target due date for their next mammogram. Electronically signed by: Merline Michelle DO 01/12/2025 04:31 PM EDT Dictated By: Merline Michelle DO Signed By: <Electronically signed by Merline Michelle DO in OV> 01/12/25 1631 DD/ 1500 TD/TT: 01/06/25 1513 Licensed Physical Therapist: Fredrick Workman MD IMG BI PROCEDURES Fin al Result * (ABNORMAL) Hm Colonoscopy (09/01/2024) Colonoscopy Abnormal(A ) Normal 09/01/2024 Historical Provider HEALTH MAINTENANCE Final Result * (ABNORMAL) POCT HGB A1C (08/25/2024 2:02 PM EST) Hemoglobin A1C 6.2(A) 4.0 - 6.0 % QC Media Lot # [id number] Lot# Expiration Date [id number] Blood 08/25/2024 2:02 PM EST Fredrick Workman MD POINT OF CARE TEST EN TER/EDIT ORDERABLES Final Result * (ABNORMAL) Lipid Panel with Reflex to Direct LDL (09/20/2023 10:28 AM EST) Triglycerides 69 <150 mg/dL [facility] Comment:Desirable Triglyceri de: less than 150 mg/dLBorderline High Triglyceride 150-199 mg/dLHigh Triglyceride: 200-499 mg/dLVery High Triglyceride: greater than or equal to 5OO mg/dL Cholesterol 171 <200 mg/dL [facility] Comment:Desirable Cholestero l: less than 200 mg/dLBorderline High Cholesterol: 200-239 mg/dLHigh Cholesterol: greater than 239 mg/dL LDL Cholesterol Calculated 105(H) <100 mg/dL [facility] Comment:Desirable LDL: less than 100 mg/dLNear Optimal/Above Optimal LDL: 110- 129 mg/dLBorderline High LDL: 130-159 mg/dLHigh LDL: 160-189 mg/dLVery High LDL: greater than or equal to 190 mg/dL HDL Cholesterol 53 >40 mg/dL [facility] Comment:Desirable HDL: great er than 40 mg/dL Note: This HDL assay may give artificially low results in patients with liver disease. Blood 09/20/2023 10:2 8 AM EST 09/20/2023 2:40 PM EST us Amanda Bales MD LAB BLOOD ORDERABLES Final Resul t [facility] [address] [place] [phone] * (ABNORMAL) HPV mRNA E6/E7 w/Reflex to HPV Genotypes 16, 18/45 (12/04/2022 3:20 PM EST) HPV nRNA E6/E7 Detected(A ) Not Detected [facility] Comment:Methodology: Transcr iption-Mediated AmplificationThis assay detects E6/E7 viral messenger RNA (mRNA) from 14high-risk HPV types (16,18,31,33,35,39,45,51,52,56,58,59,66,68).Cervical sources are required for HPV testing.If a vaginal source from a patient who has had atotal hysterectomy with removal of cervix wassubmitted, please contact the testing laboratoryfor alternative testing options.For additional information, please refer [email or web address]/LRL543o4(This link if provided for information/educational purposes only.)THIS TEST WAS PERFORMED AT:[employer] [place] [phone] PENNINGTON MD HPV 16 RNA NOT DETECTED NOT DETECTED [facility] HPV 18/45 RNA DETECTED(A ) NOT DETECTED [facility] Comment:Methodology: Transcr iption Mediated AmplificationCervical sources are required for HPV testing.If a vaginal source from a patient who has had atotal hysterectomy with removal of cervix wassubmitted, please contact the testing laboratoryfor alternative testing options.THIS TEST WAS PERFORMED AT:[employer] [place] [phone] PENNINGTON MD 12/04/2022 3:20 PM EST 12/05/2022 4:45 PM EST us [facility] External Provider LAB CYT OLOGY ORDERABLES Final Result [facility] [address] [place] [address] [phone] * Pap Smear (12/04/2022 3:20 PM EST) 12/04/2022 3:20 PM EST 12/05/2022 4:45 PM EST Narrative [facility] - 2022 11:33 AM EDT ----- ------- Name: Loan Raphael ?Age/Sex: 61/F ? : 1960 Unit#: [id number] ?? Attend Dr: Dieter Snyder MD ?Re12/04/22 ?Status: DEP REF ? Location: HO.LNP ?Disch: ? ----- ------- SPEC : [id number] ? RECD: 12/05/228 ? STATUS: ??SOUT ? REQ NUM: [id number] ? JAYESH: 12/04/22 ? SUBM DR: Dieter Snyder MD ? ENTERED: ??12/05/22 ?SP TYPE: Pap Smr ?OTHR DR: Amanda Bales MD ? ORDERED: ??Pap Smear, PAP path review ? Interpretation ?? General Category: ?? Epithelial cell abnormality. ?? Adequacy: ?Endocervical component absent. ?? Interpretation: ?Atypical squamous cells of undetermined significance. ?Coccobacilli consistent with shift in vaginal jamie. ? HPV mRNA E6/E7: ?DETECTED ? This assay detects E6/E7 viral messenger RNA (mRNA) from 14 high-risk HPV types (16, 18, ?? 31, 33, 35, 39, 45, 51, 52, 56, 58, 59, 66, 68) ? HPV Type 16 RNA: ?Not Detected ?? HPV Type 18/45 RNA: ? DETECTED ? HPV testing performed by [facility], [place], [place]. ??See reference laboratory ?? portion of the EMR for entire report. ?Clinical Information LMP: Post menopause Previous PAP test: 2021, Abnormal Other history: Ascus, HPV+ ? Material Received ?? ThinPrep-Cervical Copies To: ?? Amanda Bales MD ?? [address] [facility] ?? [place]AM[place] [id number] ? Dieter Snyder MD ?? [address] [place] [facility] [place] ?? JAMI [place] ?? [phone] ----- ------- Signed (signature on file) Lyssa Benítez 12/19/22 1133 ? ----- ------- ? END OF REPORT ? us [facility] External Provider LAB CYT OLOGY ORDERABLES Final Result [facility] [address] [place] [address] [phone] from Last 3 Months or Most Recently Relevant to Health Maintenance Insurance [employer] C3 HSN FULL Care Teams Account Development Manager Relationship Specialty Start Date End Date Amanda Bales MD [address] [place] [phone] PCP - General Family Medicine 09/30/18
--- OUTSIDE RECORDS SUMMARY | 2025-01-15 14:30 | XMS_ITS | Encounter Summary ---
Author Organization [employer] [facility] Address [address] [place] [address] 7 [place] [address] Care Team Providers Care Take Up Supervisor Name Role Phone Amanda Bales MD Primary Care Provider [phone] Eben Jay PharmD Unavailable [phone] Encounter Details Date Type Department Care Team (Late st Contact Info) Description 04/19/2023 Abstract [facility] [address] [place] [address] [phone] Amanda Bales MD [address] [place] [address] [phone] Social History Tobacco Use Types Packs/Day Years Used Date Smoking Tobacco: Never Passive Smoke Exposure: Never Smokeless Tobacco: Never Depression Answer Date Recorded Patient Health Questionnaire-9 Score 0 11/05/2022 Depression Answer Date Recorded Patient Health Questionnaire-2 Score 0 11/05/2022 Comments Unknown Sex and Gender Information Value [...] Description 01/27/2025 10:30 AM EDT Office Visit [facility] [address] [place] [address] [phone] Amanda Bales MD [address] [place] [address] [phone] documented as of this encounter Visit Diagnoses Not on filedocumented in this encounter Additional Health Concerns Assessment Noted Time PHQ-9 Depression Total Score: 0 11/05/19 23 9:39 AM EST documented as of this encounter Care Teams Take Up Supervisor Relationship Specialty Start Date End Date Amanda Bales MD [address] [place] [address] PCP - General Family Medicine 09/30/18 Eben Jay, RobinsonD [address] [place] [address] Pharmacist Internal Medicine 07/19/23 04/08/24 documented as of this encounter
--- OUTSIDE RECORDS SUMMARY | 2025-01-15 14:30 | XMS_ITS | Encounter Summary ---
Author Organization [employer] Address [address] [facility] 7 [place] [address] Care Team Providers Care Equine Breeder Name Role Phone Amanda Bales MD Primary Care Provider [phone] Reason for Visit * Reason Comments Cough Encounter Details Date Type Department Care Team ([facility] st Contact Info) Description 01/15/2025 2:20 PM EDT Office Visit [facility] [address] [address] Productive cough (Primary Dx) Social History Tobacco Use Types Packs/Day Years [...] AM EDT documented as of this encounter Last Filed Vital Signs Vital Sign Reading [...] oz) 01/15/2025 1:38 P M EDT Height - - Body Mass Index 32.24 08/25/2024 1:43 PM EST documented in this encounter Plan of Treatment Upcoming Encounters Date Type Department Care Team (Late st Contact Info) Description 01/27/2025 10:30 AM EDT Office Visit [facility] [address] [place] [address] Amanda Bales MD [address] [place] [address] Scheduled Orders Name Type Priority Associated Diagnoses Orde r Schedule XR Chest 2 Views Imaging Routine Productive cough Expected: 01/15/2025, Expires: 01/15/2026 documented as of this encounter Goals Goal Patient Goal Type Associated Problems Recent Progress Patient-Stated? Author Blood Pressure < 140/90 Blood Pressure 143/83( 025 1:38 PM EDT) No Eben Jay, PharmD documented as of this encounter Procedures Procedure Name Priority Date/Time Associated Diagnosis Comments POCT INFLUENZA B (ID NOW RAPID MOLECULAR) Routine 01/15/2025 2:02 PM EDT Productive cough POCT INFLUENZA A (ID NOW RAPID MOLECULAR) Routine 01/15/2025 2:02 PM EDT Productive cough POCT RAPID COVID ANTIGEN Routine 01/15/2025 2:02 PM EDT Productive cough documented in this encounter Results * Influenza B (ID NOW Rapid Molecular) (01/15/2025 2:02 PM EDT) [facility] Influenza B Negative Negative, Indeterminate [facility] Swab 01/15/2025 2:02 PM EDT [facility] POINT OF CARE TEST ENTER/EDIT ORDERABLES Final Result Performing Organization Address [facility] Co de Phone Number [facility] [address] [place] [phone] * Influenza A (ID NOW Rapid Molecular) (01/15/2025 2:02 PM EDT) [facility] Influenza A Negative Negative, Indeterminate [facility] Swab 01/15/2025 2:02 PM EDT [facility] TABLET MAKING MACHINE OPERATOR HELPER POINT OF CARE TEST ENTER/EDIT ORDERABLES Final Result Performing Organization Address [facility] Co de Phone Number [facility] [address] [place] [phone] * POCT Rapid COVID Ag (01/15/2025 2:02 PM EDT) [facility] Rapid COVID Ag Negative [facility] Swab 01/15/2025 2:02 PM EDT [facility] TABLET MAKING MACHINE OPERATOR HELPER POINT OF CARE TEST ENTER/EDIT ORDERABLES Final Result [facility] [address] [place] [address] [phone] documented in this encounter Visit Diagnoses Diagnosis Productive cough- Primary Cough documented in this encounter Additional Health Concerns Assessment Noted Time PHQ-9 Depression Total Score: 1 12/19/19 24 11:33 AM EDT documented as of this encounter Care Teams Equine Breeder Relationship Specialty Start Date End Date Amanda Bales MD [address] [place] [address] PCP - General Family Medicine 09/30/18 documented as of this encounter
--- OUTSIDE RECORDS SUMMARY | 2025-01-15 14:30 | XMS_ITS | Encounter Summary ---
Author Organization [employer] Address [address] [place] [address] 7 [place] [address] Care Team Providers Care Representative Name Role Phone Amanda Bales MD Primary Care Provider [phone] Eben Jay PharmD Unavailable [phone] Encounter Details Date Type Department Care Team (Late st Contact Info) Description 03/07/2023 Abstract [facility] [address] [place] [address] Amanda Bales MD [address] [place] [address] Social History Tobacco Use Types Packs/Day Years [...] Orientation Straight 07/30/2022 10 :18 AM EDT COVID-19 Exposure Response Date Recorded In the last 10 days, have yo u been in contact with someone who was confirmed or suspected to have Coronavirus/COVID-19? No / Unsure 03/05/2023 1:20 PM EDT documented as of this encounter Plan of Treatment Upcoming Encounters Date Type Department Care Team (Late st Contact Info) Description 01/27/2025 10:30 AM EDT Office Visit [facility] [address] [place] [address] Amanda Bales MD [address] [place] [address] documented as of this encounter Procedures Procedure Name Priority Date/Time Associated Diagnosis Comments COLONOSCOPY Routine 04/06/2019 documented in this encounter Results * Hm Colonoscopy (04/06/2019) Colonoscopy Normal Normal 04/06/2019 Ye Reid MD HEALTH MAINTENANCE Final Res ult documented in this encounter Visit Diagnoses Not on filedocumented in this encounter Additional Health Concerns Assessment Noted Time PHQ-9 Depression Total Score: 0 11/05/19 23 9:39 AM EST documented as of this encounter Care Teams Representative Relationship Specialty Start Date End Date Amanda Bales MD [address] [place] [address] PCP - General Family Medicine 09/30/18 Eben Jay, RobinsonD [address] [place] [address] Pharmacist Internal Medicine 07/19/23 04/08/24 documented as of this encounter
--- OUTSIDE RECORDS SUMMARY | 2025-01-15 14:30 | XMS_ITS | Encounter Summary ---
Author Organization [employer] Address [address] [facility] 7 [place] [address] Care Team Providers Care Time Study Statistician Name Role Phone Amanda Bales MD Primary Care Provider [phone] Encounter Details Date Type Department Care Team ([facility] st Contact Info) Description 01/06/2025 Orders Only [facility] [address] [place], [place] [phone] Fredrick Pelaez MD [address] [place] [address] Social History Tobacco Use Types Packs/Day Years [...] Description 01/27/2025 10:30 AM EDT Office Visit [facility] [address] [place] [address] Amanda Bales MD [address] [place] [address] documented as of this encounter Goals Goal Patient Goal Type Associated Problems Recent Progress Patient-Stated? Author Blood Pressure < 140/90 Blood Pressure 143/83( 025 1:38 PM EDT) No Eben Jay, PharmD documented as of this encounter Procedures Procedure Name Priority Date/Time Associated Diagnosis Comments BI MAMMOGRAM SCREENING TOMOSYNTHESIS BILATERAL Routine 01/06/2025 3:00 PM EDT documented in this encounter Results * BI Mammogram Screening Tomosynthesis Bilateral (01/06/2025 3:00 PM EDT) Anatomical Region Laterality Modality Breast Bilateral Mammography 01/06/2025 3:00 PM EDT Narrative 01/12/2025 4:34 PM EDT ? [facility] ? [address] ?[place] [address] ?[phone] ? Mammography Report ? Signed ? Patient: Loan Raphael A ?MR#: [id number] ?? [id number] ? : 1960 ?Acct:[id number] ? Age/Sex: 64 / F ?ADM Date: 04/09/25 ? Loc: HO.MAMMO ? Attending Dr: Fredrick Dan MD ? Ordering Physician: Fredrick Dan MD ?Resu ?? lts: 1Negative ? Date of Service: 01/06/25 ?Follow Up: 1 Year From Orig ?? inal Mammogram ? Procedure(s): MM tomosynthesis screening BI ?? Accession Number(s): [id number] ? cc: Fredrick Dan MD ? EXAMINATION: [...] ??Merline Michelle DO ??01/12/2025 04:31 PM EDT ? Dictated By: ?Merline Michelle DO ? Signed By: ?<Electronically signed by Merline Michelle, DO in OV> ? 01/12/25 1631 ? DD/ 1500 ? TD/TT: 01/06/25 1513 ? Sanitary Inspector: ? Procedure Note Donchaoter, Image - 01/12/2025 [facility] [address] [place] [address] Mammography Report Signed Patient: Loan Raphael AMR#: [id number] : 1960Acct:[id number] Age/Sex: 64 / FADM Date: 01/06/25 Loc: HO.MAMMO Attending Dr: Fredrick Dan MD Ordering Physician: Fredrick Dan MDResu lts: 1Negative Date of Service: 01/06/25Follow Up: 1 Year From Orig inal Mammogram Procedure(s): MM tomosynthesis screening BI Accession Number(s): [id number] cc: Fredrick Dan MD EXAMINATION: MM SCREENING [...] Merline Michelle DO 01/12/2025 04:31 PM EDT RP Dictated By: Merline Michelle DO Signed By: <Electronically signed by Merline Michelle DO in OV> 01/12/25 1631 DD/ 1500 TD/TT: 01/06/25 1513 Sanitary Inspector: us Fredrick Workman MD IMG BI PROCEDURES Fin al Result documented in this encounter Visit Diagnoses Not on filedocumented in this encounter Additional Health Concerns Assessment Noted Time PHQ-9 Depression Total Score: 1 12/19/19 24 11:33 AM EDT documented as of this encounter Care Teams Time Study Statistician Relationship Specialty Start Date End Date Amanda Bales MD [address] [place] [address] PCP - General Family Medicine 09/30/18 documented as of this encounter
--- OUTSIDE RECORDS SUMMARY | 2025-01-15 14:30 | XMS_ITS | Encounter Summary ---
Author Organization [facility] [facility] Address [address] [place] [address] 7 [place] [address] Care Team Providers Care General Laborer Name Role Phone Amanda Bales MD Primary Care Provider [phone] Eben Jay PharmD Unavailable [phone] Encounter Details Date Type Department Care Team (Late st Contact Info) Description 07/03/2023 Abstract [facility] [address] [place] [address] [phone] Deepali Livingston Social History Tobacco Use Types Packs/Day Years [...] Description 01/27/2025 10:30 AM EDT Office Visit [facility] [address] [place] [address] [phone] Amanda Bales MD [address] [place], [place] [phone] documented as of this encounter Procedures Procedure Name Priority Date/Time Associated Diagnosis Comments HM PAP/HPV Routine 09/28/2021 documented in this encounter Results * (ABNORMAL) Hm Pap Smear (09/28/2021) Pap Epithelial cell abnormality(A ) Negative for intraephithelial lesion or malignancy, Other Comment:ascus HPV Detected us Historical Provider HEALTH MAINTENANCE Final Result documented in this encounter Visit Diagnoses Not on filedocumented in this encounter Additional Health Concerns Assessment Noted Time PHQ-9 Depression Total Score: 0 11/05/19 23 9:39 AM EST documented as of this encounter Care Teams General Laborer Relationship Specialty Start Date End Date Amanda Bales MD [address] [place] [address] PCP - General Family Medicine 09/30/18 Eben Jay, RobinsonD [address] [place] [address] Pharmacist Internal Medicine 07/19/23 04/08/24 documented as of this encounter
== END 2025-01-15 14:10 | disposition home or self-care (01) ==
LOC: HO.HHCX 14:09
PROVIDERS: Visit Provider Registered Nurse
DX: R05.8 Other specified cough (principal)
CPT/HCPCS: 71046

== ENCOUNTER → 2025-01-15 14:09 | Outpatient (BNV) | payer MEDICAID, SELFPAY | PROVIDERS: Visit Provider Radiology Diagnostic Radiology | DX: J18.9 Pneumonia, unspecified organism (principal) | CPT/HCPCS: 71046 ==

== ENCOUNTER 2025-01-27 11:58 | Outpatient (REF) | payer MEDICAID, SELFPAY ==
--- NOTE | ~2025-01-27 | XR_ITS ---
EXAMINATION: XR CHEST CLINICAL INFORMATION: Follow up of pneumonia. Initial X-ray on 01/14/25. COMPARISON: 01/15/2025. TECHNIQUE: 2 views of the chest were obtained. FINDINGS: The cardiac, hilar, and mediastinal contours are normal. The lungs are clear bilaterally. Previously seen right middle lobe opacity has resolved. There is no pneumothorax or pleural effusion. There is no focal osseous or soft tissue abnormality. XR/XR chest 2V IMPRESSION: No active pulmonary disease. Resolution of previously seen right middle lobe opacity. Electronically signed by: Jay Piña MD 01/27/2025 12:53 PM EDT
--- OUTSIDE RECORDS SUMMARY | 2025-01-27 13:29 | XMS_ITS | Encounter Summary ---
Author Organization [facility] Address [address] [place] [address] 7 [place] [address] Care Team Providers Care Delivery Room Clerk Name Role Phone Amanda Bales MD Primary Care Provider [phone] Eben Jay PharmD Unavailable [phone] Encounter Details Date Type Department Care Team (Late st Contact Info) Description 10/26/2022 Abstract [facility] [address] [place] [address] [phone] Amanda Bales MD [address] [place] [address] Social History Tobacco Use Types Packs/Day Years [...] Care Team (Late st Contact Info) Description 02/17/2025 2:30 PM EDT Clinical Support [address] [phone] 04/29/2025 11:00 AM EDT Office Visit [address] [phone] Amanda Bales MD [address] [place] [address] [phone] documented as of this encounter Visit Diagnoses Not on filedocumented in this encounter Care Teams Delivery Room Clerk Relationship Specialty Start Date End Date Amanda Bales MD [address] [place], [place] [phone] PCP - General Family Medicine 09/30/18 Eben Jay, Sarai [address] [place] [address] Pharmacist Internal Medicine 07/19/23 04/08/24 documented as of this encounter
--- OUTSIDE RECORDS SUMMARY | 2025-01-27 13:29 | XMS_ITS | Encounter Summary ---
Author Organization [employer] Address [address] [place] [address] 7 [place] [address] Care Team Providers Care Real Estate Rep Name Role Phone Amanda Bales MD Primary Care Provider [phone] Reason for Visit * Reason Comments Med Change Request Encounter Details Date Type Department Care Team ([facility] st Contact Info) Description 01/27/2025 Refill [facility] [address] [place], [place] [phone] Amanda Bales MD [address] [place] [address] Social History Tobacco Use Types Packs/Day Years Used Date Smoking Tobacco: Never Passive Smoke Exposure: Never Smokeless Tobacco: Never Alcohol Use Standard Drinks/Week Comments Never 0 (1 standard drink = 0.6 oz pur e alcohol) Depression Answer Date Recorded Patient Health Questionnaire-9 Score 2 01/27/2025 Patient Health Questionnaire-9 Score 2 01/27/2025 Last PHQ-9: Questionnaire Data Not on file 0 01/27/2025 Housing Stability Answer Date Recorded What is [...] Date Recorded Patient Health Questionnaire-2 Score 0 01/27/2025 Internet Access Answer Date Recorded Internet Access [...] Description 02/17/2025 2:30 PM EDT Clinical Support [address] [address] 04/29/2025 11:00 AM EDT Office Visit [address] [address] Amanda Bales MD [address] [place] [address] documented as of this encounter Goals Goal Patient Goal Type Associated Problems Recent Progress Patient-Stated? Author Blood Pressure < 140/90 Blood Pressure 150/98( 025 11:13 AM EDT) No Eben Jay, PharmD documented as of this encounter Visit Diagnoses Not on filedocumented in this encounter Additional Health Concerns Assessment Noted Time PHQ-9 Depression Total Score: 2 01/28/20 25 10:54 AM EDT documented as of this encounter Care Teams Real Estate Rep Relationship Specialty Start Date End Date Amanda Bales MD [address] [place] [address] PCP - General Family Medicine 09/30/18 documented as of this encounter
--- OUTSIDE RECORDS SUMMARY | 2025-01-27 13:29 | XMS_ITS | Encounter Summary ---
Author Organization [employer] Address [address] [facility] 7 [place] [address] Care Team Providers Care Marketing Communications Assistant Name Role Phone Amanda Bales MD Primary Care Provider [phone] Encounter Details Date Type Department Care Team ([facility] st Contact Info) Description 01/26/2025 Telephone [facility] [address] [place], [place] [phone] Nolvia Perea MA Social History Tobacco Use Types Packs/Day Years [...] encounter Miscellaneous Notes * Telephone Encounter - Nolvia Perea MA - 01/26/2025 10:14 AM EDT ..Chart Prep Labs: not applicable Images: done Vaccines due: Covid Due, PCV20 Due, and Flu Due Referrals: Orthopedics Completed Screenings: Not Applicable Overdue care gaps: Sbirt, PQ9, GAD7, and Disability documented in this encounter Plan of Treatment Upcoming Encounters Date Type Department Care Team (Late st Contact Info) Description 02/17/2025 2:30 PM EDT Clinical Support [facility] [address] [place] [address] 04/29/2025 11:00 AM EDT Office Visit [facility] [address] [place] [phone] Amanda Bales MD [address] [place] [address] documented as of this encounter Goals Goal Patient Goal Type Associated Problems Recent Progress Patient-Stated? Author Blood Pressure < 140/90 Blood Pressure 150/98( 025 11:13 AM EDT) No Eben Jay, RobinsonD documented as of this encounter Visit Diagnoses Not on filedocumented in this encounter Additional Health Concerns Assessment Noted Time PHQ-9 Depression Total Score: 1 12/19/19 24 11:33 AM EDT documented as of this encounter Care Teams Marketing Communications Assistant Relationship Specialty Start Date End Date Amanda Bales MD [address] [place] [address] PCP - General Family Medicine 09/30/18 documented as of this encounter
--- OUTSIDE RECORDS SUMMARY | 2025-01-27 13:29 | XMS_ITS | Encounter Summary ---
Author Organization [employer] Address [address] [place] [address] 7 [place] [address] Care Team Providers Care Electrical Hardware Engineer Name Role Phone Amanda Bales MD Primary Care Provider [phone] Eben Jay PharmD Unavailable [phone] Encounter Details Date Type Department Care Team (Late st Contact Info) Description 07/03/2023 Abstract [facility] [address] [place] [phone] Deepali Livingston Social History Tobacco Use Types [...] Description 02/17/2025 2:30 PM EDT Clinical Support [address] [address] 04/29/2025 11:00 AM EDT Office Visit [facility] [address] [place] [address] Amanda Bales MD [address] [place] [phone] documented as of this encounter Procedures Procedure Name Priority Date/Time Associated Diagnosis Comments HM PAP/HPV Routine 09/28/2021 documented in this encounter Results * (ABNORMAL) Pap Smear (09/28/2021) Pap Epithelial cell abnormality(A ) Negative for intraephithelial lesion or malignancy, Other Comment:ascus HPV Detected us Historical Provider HEALTH MAINTENANCE Final Result documented in this encounter Visit Diagnoses Not on filedocumented in this encounter Additional Health Concerns Assessment Noted Time PHQ-9 Depression Total Score: 0 11/05/19 23 9:39 AM EST documented as of this encounter Care Teams Electrical Hardware Engineer Relationship Specialty Start Date End Date Amanda Bales MD [address] [place] [address] PCP - General Family Medicine 09/30/18 Eben Jay, RobinsonD [address] [place] [address] Pharmacist Internal Medicine 07/19/23 04/08/24 documented as of this encounter
--- OUTSIDE RECORDS SUMMARY | 2025-01-27 13:29 | XMS_ITS | Encounter Summary ---
Author Organization [employer] Address [address] [place] [address] 7 [place] [address] Care Team Providers Care International Project Engineer Name Role Phone Amanda Bales MD Primary Care Provider [phone] Reason for Visit * Reason Onset Date Comments Appointment Request 12/10/2024 Encounter Details Date Type Department Care Team ([facility] st Contact Info) Description 12/10/2024 Telephone [facility] [address] [place], [place] [phone] Amanda Bales MD [address] [place] [address] Appointment Request Social History Tobacco Use Types [...] with PCP was 04/21/24. Contact pt at [phone] documented in this encounter Plan of Treatment Upcoming Encounters Date Type Department Care Team (Late st Contact Info) Description 02/17/2025 2:30 PM EDT Clinical Support [facility] [address] [place] [phone] 04/29/2025 11:00 AM EDT Office Visit [facility] [address] [place] [address] Amanda Bales MD [address] [place] [address] documented as of this encounter Goals Goal [...] documented as of this encounter Care Teams International Project Engineer Relationship Specialty Start Date End Date Amanda Bales MD [address] [place] [address] PCP - General Family Medicine 09/30/18 documented as of this encounter
--- OUTSIDE RECORDS SUMMARY | 2025-01-27 13:29 | XMS_ITS | Encounter Summary ---
Author Organization [employer] Address [address] [place] [address] 7 [place] [address] Care Team Providers Care Rib Cutter Name Role Phone Amanda Bales MD Primary Care Provider [phone] Eben Jay PharmD Unavailable [phone] Encounter Details Date Type Department Care Team (Late st Contact Info) Description 03/07/2023 Abstract [facility]INE [address] [place] [address] Amanda Bales MD [address] [place] [address] Social History Tobacco Use Types Packs/Day Years [...] Description 02/17/2025 2:30 PM EDT Clinical Support [facility] [place] [address] 04/29/2025 11:00 AM EDT Office Visit [facility] [place] [address] [place] [address] documented as of this encounter Procedures Procedure Name Priority Date/Time Associated Diagnosis Comments COLONOSCOPY Routine 04/06/2019 documented in this encounter Results * Colonoscopy (04/06/2019) Colonoscopy Normal Normal 04/06/2019 Ye Reid MD HEALTH MAINTENANCE Final Res ult documented in this encounter Visit Diagnoses Not on filedocumented in this encounter Additional Health Concerns Assessment Noted Time PHQ-9 Depression Total Score: 0 11/05/19 23 9:39 AM EST documented as of this encounter Care Teams Rib Cutter Relationship Specialty Start Date End [place] [address] PCP - General Family Medicine 09/30/18 Eben Jay, [place] [address] Pharmacist Internal Medicine 07/19/23 04/08/24 documented as of this encounter
--- OUTSIDE RECORDS SUMMARY | 2025-01-27 13:29 | XMS_ITS | Encounter Summary ---
Author Organization [employer] Address [address] [place] [address] 7 [place] [address] Care Team Providers Care Manager Video Games Name Role Phone Amanda Bales MD Primary Care Provider [phone] Reason for Visit * Reason Comments Annual Exam Pt would like to get an image done to get her lungs checked out. Pt has random cough attacks that causes chest tightness. Encounter Details Date Type Department Care Team (Late st Contact Info) Description 01/27/2025 10:30 AM EDT Office Visit [facility] [address] [place] [address] Amanda Bales MD [address] [place], [place] [phone] Cervical dysplasia (Primary Dx); Tubular adenoma of colon; Community acquired pneumonia of right middle lobe of lung; Primary hypertension; Subacute cough; Encounter for immunization Social History Tobacco Use Types Packs/Day Years [...] the past 12 months, has t he [employer] gas, oil or water company threatened to [...] Sign Reading Time Taken Comments Blood Pressure 150/98 01/27/2025 11:13 AM EDT Pulse 75 01/27/2025 10:58 AM EDT Temperature 36.3 ??C (97.3 ??F) 01/27/2025 10:58 AM E DT Respiratory Rate 20 01/27/2025 10:58 AM EDT Oxygen Saturation 95% 01/27/2025 10:58 AM EDT Inhaled Oxygen Concentration - - Weight 74.6 kg (164 lb 6.4 oz) 01/27/2025 10:58 AM EDT Height 149.9 cm (4' 11 ) 01/27/2025 10:58 AM EDT Body Mass Index 33.2 01/27/2025 10:58 AM EDT documented in this encounter Miscellaneous Notes * Assessment & Plan Note - Amanda Bales MD - 01/27/2025 5:44 AM EDTAssociated Problem(s): Tubular adenoma of colon - Tubular adenoma of colon in November 2013 - Normal colonoscopy by Dr. Reid on 04/22/19, recommended to repeat in 5 years due to Hx tubularadenoma - Colonoscopy by Dr. Mccarty on 09/01/24. Sessile serrated polyps. Repeat colonoscopy in 1 year due to suboptimal prep. * Assessment & Plan Note - Amanda Bales MD - 01/27/2025 5:41 AM EDTAssociated Problem(s): Cervical dysplasia ASCUS in 2008. NILM since 2010. 05/10/[address] Torrez. NILM with positive high-risk HPV 05/20/[address] Jasso. ASCUS with positive high-risk HPV. 10/06/18 Pap NILM with positive high-risk HPV 04/30/20 Pap by [facility], Dr. Snyder. ASCUS with positive high-risk HPV 07/21/20 Colposcopy / ECC DHARMESH-1 09/09/20 LEEP and cone Mild dysplasia 10/02/[address] Snyder ASCUS with positive high-risk HPV 10/31/21 Colposcopy / ECC No atypia 11/26/[address] Snyder ASCUS with positive high-risk HPV 02/18/23 Colposcopy / ECC LGSIL / DHARMESH-1 12/13/[address] Snyder LGSIL / DHARMESH-1. Positive high-risk HPV. 01/29/24 ECC. Vaginal wall biopsy - VAIN-1 Continue following up with [facility] MANAGER documented in this encounter Plan of Treatment Upcoming Encounters Date Type Department Care Team (Late st Contact Info) Description 02/17/2025 2:30 PM EDT Clinical Support [facility] [address] [place] [phone] 04/29/2025 11:00 AM EDT Office Visit [address] [address] Amanda Bales MD [address] [place] [phone] documented as of this encounter Goals Goal Patient Goal Type Associated Problems Recent Progress Patient-Stated? Author Blood Pressure < 140/90 Blood Pressure 150/98( 025 11:13 AM EDT) Eben Solo PharmD documented as of this encounter Procedures Procedure Name Priority Date/Time Associated Diagnosis Comments XR CHEST 2 VIEWS Routine 01/27/2025 11:5 9 AM EDT Community acquired pneumonia of right middle lobe of lung documented in this encounter Results * XR Chest 2 Views (01/27/2025 11:59 AM EDT) Anatomical Region Laterality Modality Chest Radiographic Apolonia ging 01/27/2025 11:5 9 AM EDT Narrative 01/27/2025 12:56 PM EDT ?[facility] ?[address] ?[place] [address] ?XRay Report ? Signed ? Patient: Hayes Allen,Loan A ?MR#: [id number] ?? [id number] ? : 1960 ?Acct:[id number] ? Age/Sex: 64 / F ?ADM Date: 01/27/25 ? Loc: HO.HHCX ? Attending Dr: Amanda Bales MD ? Ordering Physician: Amanda Bales MD ?? Date of Service: 01/27/25 ?? Procedure(s): XR chest 2V ?? Accession Number(s): [id number] ? cc: Amanda Bales MD ? EXAMINATION: ?? XR CHEST ? CLINICAL INFORMATION: ?? Follow up of pneumonia. ??Initial X-ray on 01/14/25. ? COMPARISON: ?? 01/15/2025. ? TECHNIQUE: ?? 2 views of the chest were obtained. ? FINDINGS: ?? The cardiac, hilar, and mediastinal contours are normal. ? The lungs are clear bilaterally. Previously seen right middle lobe ?? opacity has resolved. There is no pneumothorax or pleural effusion. ? There is no focal osseous or soft tissue abnormality. ? XR/XR chest 2V ?? IMPRESSION: ?? No active pulmonary disease. Resolution of previously seen right middle ?? lobe opacity. ? Electronically signed by: ??Jay Piña MD ??01/27/2025 12:53 PM EDT RP ? Dictated By: ?Jay Piña MD ? Signed By: ?<Electronically signed by Jay Piña MD in OV> ?01/27/25 1253 ? DD/ 1159 ? TD/TT: 01/27/25 1200 ? Procurement Consultant: ? Procedure Note Donottheointerpreter, Image - 01/27/[address] [address] XRay Report Signed Patient: Loan Raphael AMR#: [id number] : 1960Acct:[id number] Age/Sex: 64 / FADM Date: 01/27/25 Loc: HO.HHCX Attending Dr: Amanda Bales MD Ordering Physician: Amanda Bales MD Date of Service: 01/27/25 Procedure(s): XR chest 2V Accession Number(s): [id number] cc: Amanda Bales MD EXAMINATION: XR CHEST CLINICAL INFORMATION: Follow up of pneumonia. Initial X-ray on 01/14/25. COMPARISON: 01/15/2025. TECHNIQUE: 2 views of the chest were obtained. FINDINGS: The cardiac, hilar, and mediastinal contours are normal. The lungs are clear bilaterally. Previously seen right middle lobe opacity has resolved. There is no pneumothorax or pleural effusion. There is no focal osseous or soft tissue abnormality. XR/XR chest 2V IMPRESSION: No active pulmonary disease. Resolution of previously seen right middle lobe opacity. Electronically signed by: Jay Piña MD 01/27/2025 12:53 PM EDT Dictated By: Jay Piña MD Signed By: <Electronically signed by Jay Piña MD in OV> 01/27/25 1253 DD/ 1159 TD/TT: 01/27/25 1200 Procurement Consultant: Amanda Bales MD IMG XR PROCEDURES Edited Result - Final documented in this encounter Visit Diagnoses Diagnosis Cervical dysplasia- Primary Dysplasia of cervix, unspecified Tubular adenoma of colon Benign neoplasm of colon Community acquired pneumonia of right middle lobe of lung Primary hypertension Unspecified essential hypertension Subacute cough Encounter for immunization documented in this encounter Additional Health Concerns Assessment Noted Time PHQ-9 Depression Total Score: 2 01/28/20 25 10:54 AM EDT documented as of this encounter Care Teams Manager Video Games Relationship Specialty Start Date End Date Amanda Bales MD [address] [place] [address] PCP - General Family Medicine 09/30/18 documented as of this encounter
--- OUTSIDE RECORDS SUMMARY | 2025-01-27 13:29 | XMS_ITS | Encounter Summary ---
Author Organization [employer] Address [address] [place] [address] 7 [place] [address] Care Team Providers Care Personal Financial Planner Name Role Phone Amanda Bales MD Primary Care Provider [phone] Eben Jay PharmD Unavailable [phone] Encounter Details Date Type Department Care Team (Late Contact Info) Description 04/19/2023 Abstract [facility] MEDICINE [address] [place] [phone] Amanda Bales MD [address] [place] [phone] Social History Tobacco Use Types Packs/Day Years [...] Description 02/17/2025 2:30 PM EDT Clinical Support [address] [address] 04/29/2025 11:00 AM EDT Office Visit [address] [phone] Amanda Bales MD [address] [place] [phone] documented as of this encounter Visit Diagnoses Not on filedocumented in this encounter Additional Health Concerns Assessment Noted Time PHQ-9 Depression Total Score: 0 11/05/19 23 9:39 AM EST documented as of this encounter Care Teams Personal Financial Planner Relationship Specialty Start Date End Date Amanda Bales MD [address] [place] [phone] PCP - General Family Medicine 09/30/18 Eben Jay, PharmD [address] [place] [phone] Pharmacist Internal Medicine 07/19/23 04/08/24 documented as of this encounter
--- OUTSIDE RECORDS SUMMARY | 2025-01-27 13:29 | XMS_ITS | Encounter Summary ---
Author Organization [employer] Address [address] [facility] 7 [place] [address] Care Team Providers Care Marine Painter Name Role Phone Amanda Bales MD Primary Care Provider [phone] Encounter Details Date Type Department Care Team (Latest Contact Info) Description 01/26/2025 Travel Social History Tobacco Use Types Packs/Day Years [...] Description 02/17/2025 2:30 PM EDT Clinical Support [facility] MEDICINE [address] [place] [phone] 04/29/2025 11:00 AM EDT Office Visit [facility] [address] [place] [phone] Amanda Bales MD [address] [place] [phone] documented as of this encounter Goals Goal [...] documented as of this encounter Care Teams Marine Painter Relationship Specialty Start Date End Date Amanda Bales MD [address] [place] [phone] PCP - General Family Medicine 09/30/18 documented as of this encounter
--- OUTSIDE RECORDS SUMMARY | 2025-01-27 13:29 | XMS_ITS | Clinical Summary ---
Author Organization [employer] Address [address] [place] [address] 7 [place] [address] Care Team Providers Care Associate Relations Specialist Name Role Phone Amanda Bales MD Primary Care Provider [phone] Allergies Active Allergy Reactions Criticality Noted Date Comments Penicillins Hives Medium 10/06/2010 Other reaction(s): unspecified Medications cetirizine (ZyrTEC) 10 MG tablet TAKE 1 TABLET BY MOUTH EVERY MORNING 90 tablet 3 4 Active losartan (Cozaar) 25 MG tablet TAKE 1/2 TABLET BY MOUTH EVERY DAY 45 tablet 3 5 Active chlorthalidone (Hygroton) 25 MG tabletIndication s:Primary hypertension TAKE 1 TABLET BY MOUTH EVERY DAY 90 tablet 3 5 Active meloxicam (Mobic) 15 MG tabletIndication s:Left hip pain TAKE 1 TABLET BY MOUTH EVERY DAY 30 tablet 5 Active albuterol 108 (90 Base) MCG/ACT inhalerIndicatio ns:Community acquired pneumonia of right middle lobe of lung Inhale 2 puffs every 6 (six) hours if needed for wheezing. 18 g 11 5 01/16/20 26 Active Spacer/Aero-Hold ing Chambers (AeroChamber MV) inhalerIndicatio ns:Community acquired pneumonia of right middle lobe of lung Use as instructed 1 each 2 5 Active dextromethorphan 15 MG/5ML syrup Take 10 mL (30 mg) by mouth if needed in the morning, at noon, in the evening, and at bedtime for cough for up to 10 days. 120 mL 04/30/202 5 02/07/20 25 Active levoFLOXacin (Levaquin) 750 MG tabletIndication s:Community acquired pneumonia of right middle lobe of lung Take 1 tablet (750 mg) by mouth Once per day for 5 days. 5 tablet 5 01/21/20 25 Active Problems Problem Noted Date Diagnosed Date [...] modification Cervical dysplasia 11/05/2022 Assessment & Plan (01/27/2025 5:41 AM EDT): ASCUS in 2008. NILM since 2010. 05/10/[address] Torrez. NILM with positive high-risk HPV 05/20/[address] Jasso. ASCUS with positive high-risk HPV. 10/06/18 Pap NILM with positive high-risk HPV 04/30/20 Pap by [facility]CH[employer], Dr. Snyder. ASCUS with positive high-risk HPV [...] biopsy - VAIN-1 Continue following up with [employer] TECHNICIAN Assessment & Plan (09/22/2023 6:28 PM EST): ASCUS in 2008. NILM since 2010. 05/10/[address] Torrez. NILM with positive high-risk HPV 05/20/ Pap by Dr. Jasso. ASCUS with positive high-risk HPV. 10/06/18 Pap NILM with positive high-risk HPV 04/30/20 Pap by [facility] [employer] TECHNICIAN, Dr. Snyder. ASCUS with positive high-risk HPV 07/21/20 Colposcopy / ECC DHARMESH-1 09/09/20 LEEP and cone Mild dysplasia 10/02/[address] Snyder ASCUS with positive high-risk HPV 10/31/21 Colposcopy / ECC No atypia 11/26/[address] Snyder ASCUS with positive high-risk HPV 02/18/23 Colposcopy / ECC LGSIL / DHARMESH-1 Continue following up with [employer] TECHNICIAN Assessment & Plan (06/24/2023 10:14 AM EDT): ASCUS in 2008. NILM since 2010. 05/10/[address] Trorez. NILM with positive high-risk HPV 8/21/[address] Jasso. ASCUS with positive high-risk HPV. 10/06/18 Pap NILM with positive high-risk HPV 04/30/20 Pap by [facility] TECHNICIANDr. Snyder. ASCUS with positive high-risk HPV 07/21/20 Colposcopy / ECC DHARMESH-1 09/09/20 LEEP and cone Mild dysplasia 10/02/[address] Snyder ASCUS with positive high-risk HPV 10/31/21 Colposcopy / ECC No atypia 11/26/[address] Snyder ASCUS with positive high-risk HPV 02/18/23 Colposcopy / ECC LGSIL / DHARMESH-1 Continue following up with [employer] TECHNICIAN Assessment & Plan (03/10/2023 6:53 AM EDT): ASCUS in 2008. NILM since 2010. 05/10/[address] Torrez. NILM with positive high-risk HPV 821/ Pap by Dr. Jasso. ASCUS with positive high-risk HPV. 10/06/18 Pap NILM with positive high-risk HPV 04/30/20 Pap by [facility] [employer] TECHNICIAN, Dr. Snyder. ASCUS with positive high-risk HPV 07/21/20 Colposcopy / ECC DHARMESH-1 09/09/20 LEEP and cone Mild dysplasia 10/02/[address] Snyder ASCUS with positive high-risk HPV 10/31/21 Colposcopy / ECC No atypia 11/26/[address] Snyder ASCUS with positive high-risk HPV 02/18/23 Colposcopy / ECC LGSIL / DHARMESH-1 Continue following up with [employer] TECHNICIAN Assessment & Plan (11/05/2022 4:44 AM EST): ASCUS in 2008. NILM since 2010. 05/10/[address] Torrez. NILM with positive high-risk HPV 8/21/[address] Jasso. ASCUS with positive high-risk HPV. 10/06/18 Pap NILM with positive high-risk HPV 04/30/20 Pap by [facility] TECHNICIANDr. Snyder. ASCUS with positive high-risk HPV 07/21/20 Colposcopy / ECC DHARMESH I 09/09/20 LEEP and cone Mild dysplasia 10/02/[address] Zerbe ASCUS with positive high-risk HPV 10/31/21 Colposcopy / ECC No atypia Continue following up with [employer] TECHNICIAN Chronic left shoulder pain 11/05/2022 Assessment & [...] - s/p hemorrhoidectomy by Dr. Osman at [facility] on 12/19/22 - avoid prolonged sitting - [...] Hx: hydrochlorothiazide was changed to chlorthalidone in 2015 -Continue working on lifestyle modifications -Continue Chlorthalidone [...] problem arises -Questionable medication adherence. Referred to [facility]. Assessment & Plan (06/24/2023 10:15 AM EDT): [...] problem arises -Questionable medication adherence. Referred to [facility]. Assessment & Plan (03/10/2023 6:48 AM EDT): [...] problem arises -Questionable medication adherence. Refer to [facility]. Assessment & Plan (11/05/2022 4:34 AM EST): [...] adenoma of colon 12/25/2013 Assessment & Plan (01/27/2025 5:44 AM EDT): - Tubular adenoma of colon in November 2013 - Normal colonoscopy by Dr. Reid on 04/22/19, recommended to repeat in 5 years due to Hx tubular adenoma - Colonoscopy by Dr. Mccarty on 09/01/24. Sessile serrated polyps. Repeat colonoscopy in 1 year due to suboptimal prep. Assessment & Plan (11/05/2022 4:36 AM EST): - Tubular adenoma of colon in November 2013 - Normal colonoscopy by Dr. Reid on 04/22/19, recommended to repeat in 5 years due to Hx tubular adenoma Encounters Date Type Department Care Team Description 01/27/2025 10:30 AM EDT Office Visit [facility] [address] [place] [phone] Amanda Bales MD Cervical dysplasia (Primary Dx); Tubular adenoma of colon; Community acquired pneumonia of right middle lobe of lung; Primary hypertension; Subacute cough; Encounter for immunization 01/27/2025 Refill [facility] [address] [place] [phone] Amanda Bales MD 01/26/2025 Travel 01/26/2025 Telephone [facility] [address] [place] [phone] Nolvia Perea MA 01/20/2025 Telephone [facility] [address] [place] [address] Mercedez Rios FNP 01/15/2025 2:20 PM EDT Office Visit [facility] [address] [place] [address] Mercedez Rios FNP Community acquired pneumonia of right middle lobe of lung (Primary Dx) 01/14/2025 Patient Outreach [facility] [address] [place] [address] Amanda Bales MD Pre-visit Planning (SDOH negative, Tobacco screening negative) 01/06/2025 Orders Only [facility] [address] [place] [address] Fredrick Pelaez MD 12/14/2024 Refill [facility] [address] [place], [place] [phone] Amanda Bales MD Left hip pain 12/11/2024 Population Health Risk Score Community [facility] ([facility] Department [address] [phone] Provider, Population Health Generic 12/10/2024 Telephone [facility] [address] [place], [place] [phone] Amanda Bales MD Appointment Request 11/16/2024 Refill [facility] [address] [place], [place] [phone] Amanda Bales MD Left hip pain from [...] Mass Index 33.2 01/27/2025 10:58 AM EDT Plan of Treatment Upcoming Encounters Date Type Department Care Team (Late st Contact Info) Description 02/17/2025 2:30 PM EDT Clinical Support [facility] [address] [place] [phone] 04/29/2025 11:00 AM EDT Office Visit [facility] [address] [place] [phone] Amanda Bales MD [address] [place] [address] Health Maintenance Due Date Last Done Comments CT Colonography 1960 FIT DNA/Cologuard 1960 FIT 1960 FOBT 1960 Sigmoidoscopy 1960 Pneumococcal Vaccine: 50+ Years (1 of 1 - PCV) 2012 COVID-19 Vaccine ( season) 2024 09/21/2021, 02/16/2021, 01/26/2021 Influenza Vaccine (#1) 2024 10/07/2012 Diabetes: Hemoglobin A1C 08/25/2025 024, 09/20/2023, 11/29/2022, Additional history exists SDOH Screening 01/14/2026 01/14/2025 Alcohol/Substance Use Screening 01/27/2026 01/27/2025 Depression Screening 01/27/2026 01/27/2025, 01/28/20 25 Tobacco Screening 01/27/2026 01/27/2025 Pap Smear 01/01/2027 01/02/2024, 03/2023, 09/28/2021 Mammogram 01/06/2027 01/06/2025, 10/01, 10/19/2022, Additional [...] Pressure 150/98( 025 11:13 AM EDT) Eben Solo, Sarai Procedures Procedure Name Priority Date/Time Associated Diagnosis Comments XR CHEST 2 VIEWS Routine 01/27/2025 11:5 9 AM EDT Community acquired pneumonia of right middle lobe of lung XR CHEST 2 VIEWS Routine 01/15/2025 2:09 PM EDT Community acquired pneumonia of right middle lobe of lung POCT INFLUENZA B (ID NOW RAPID MOLECULAR) Routine 01/15/2025 2:02 PM EDT Community acquired pneumonia of right middle lobe of lung POCT INFLUENZA A (ID NOW RAPID MOLECULAR) Routine 01/15/2025 2:02 PM EDT Community acquired pneumonia of right middle lobe of lung POCT RAPID COVID ANTIGEN Routine 01/15/2025 2:02 PM EDT Community acquired pneumonia of right middle lobe of lung BI MAMMOGRAM SCREENING TOMOSYNTHESIS BILATERAL Routine 01/06/2025 [...] Recently Relevant to Health Maintenance Results * XR Chest 2 Views (01/27/2025 11:59 AM EDT) Only the most recent of2 resultswithin the time period is included. Anatomical Region Laterality Modality Chest Radiographic Apolonia ging 01/27/2025 11:5 9 AM EDT Narrative 01/27/2025 12:56 PM EDT ?[facility] ?[address] ?[place] [address] ?XRay Report ? Signed ? Patient: Loan Raphael ?MR#: [id number] ?? [id number] ? : 1960 ?Acct:[id number] ? Age/Sex: 64 / F ?ADM Date: 01/27/25 ? Loc: HO.HHCX ? Attending Dr: Amanda Bales MD ? Ordering Physician: Amanda Bales MD ?? Date of Service: 01/27/25 ?? Procedure(s): XR chest 2V ?? Accession Number(s): [id number] ? cc: Amanda Bales MD ? EXAMINATION: [...] DD/ 1159 ? TD/TT: 01/27/25 1200 ? Customer Equipment Engineer: ? Procedure Note Donotuseinterpreter, Image - 01/27/2025 [facility] [address] [place] [address] XRay Report Signed Patient: Loan Raphael AMR#: [id number] : 1960Acct:[id number] Age/Sex: 64 / FADM Date: 01/27/25 Loc: HO.HHCX Attending Dr: Amanda Bales MD Ordering Physician: Amanda Bales MD Date of Service: 01/27/25 Procedure(s): XR chest 2V Accession Number(s): [id number] cc: Amanda Bales MD EXAMINATION: XR CHEST [...] 01/27/25 1253 DD/ 1159 TD/TT: 01/27/25 1200 Customer Equipment Engineer: Amanda Bales MD IMG XR PROCEDURES Edited Result - Final * Influenza B (ID NOW Rapid Molecular) (01/15/2025 2:02 PM EDT) [facility] Influenza B Negative Negative, Indeterminate [facility] Swab 01/15/2025 2:02 PM EDT [facility] LOGGER POINT OF CARE TEST ENTER/EDIT ORDERABLES Final Result Performing Organization Address [facility] Co de Phone Number [facility] [address] [place] [phone] * Influenza A (ID NOW Rapid Molecular) (01/15/2025 2:02 PM EDT) [facility] Influenza A Negative Negative, Indeterminate [facility] Swab 01/15/2025 2:02 PM EDT [facility] LOGGER POINT OF CARE TEST ENTER/EDIT ORDERABLES Final Result Performing Organization Address [facility] Co de Phone Number [facility] [address] [place] [phone] * POCT Rapid COVID Ag (01/15/2025 2:02 PM EDT) [facility] Rapid COVID Ag Negative [facility] Swab 01/15/2025 2:02 PM EDT [facility] LOGGER POINT OF CARE TEST ENTER/EDIT ORDERABLES Final Result Performing Organization Address [facility] de Phone Number [facility] [address] [place] [phone] * BI Mammogram Screening Tomosynthesis Bilateral (01/06/2025 3:00 PM EDT) Anatomical Region Laterality Modality Breast Bilateral Mammography 01/06/2025 3:00 PM EDT Narrative 01/12/2025 4:34 PM EDT ? [facility] ? [address] ?[place] [address] ?[phone] ? Mammography Report ? Signed ? Patient: Loan Raphael ?MR#: [id number] ?? [id number] ? : 1960 ?Acct:[id number] ? Age/Sex: 64 / F ?ADM Date: 01/06/25 ? Loc: HO.MAMMO ? Attending Dr: Fredrick Dan MD ? Ordering Physician: Fredrick Dan MD ?Resu ?? lts: 1Negative ? Date of Service: 01/06/25 ?Follow Up: 1 Year From Orig ?? inal Mammogram ? Procedure(s): MM tomosynthesis screening BI ?? Accession Number(s): [id number] ? cc: Fredrick Dan MD ? EXAMINATION: [...] DD/ 1500 ? TD/TT: 01/06/25 1513 ? Customer Equipment Engineer: ? Procedure Note Eren, Emmanuel - 01/12/2025 [facility] [address] [place] [address] Mammography Report Signed Patient: Loan Raphael AMR#: [id number] : 1960Acct:[id number] Age/Sex: 64 / FADM Date: 01/06/25 Loc: MATEO.LAURENO Attending Dr: Fredrick Dan MD Ordering Physician: Fredrick Dan MDResu lts: 1Negative Date of Service: 01/06/25Follow Up: 1 Year From Orig inal Mammogram Procedure(s): MM tomosynthesis screening BI Accession Number(s): [id number] cc: Fredrick Dan MD EXAMINATION: MM SCREENING [...] 01/12/25 1631 DD/ 1500 TD/TT: 01/06/25 1513 Customer Equipment Engineer: Fredrick Workman MD IMG BI PROCEDURES Fin al Result * (ABNORMAL) Hm Colonoscopy (09/01/2024) Colonoscopy Abnormal(A ) Normal 09/01/2024 [facility] Provider HEALTH MAINTENANCE Final Result * (ABNORMAL) POCT HGB A1C (08/25/2024 2:02 PM EST) Hemoglobin A1C 6.2(A) 4.0 - 6.0 % QC Media Lot # [id number] Lot# Expiration Date [id number] Blood 08/25/2024 2:02 PM EST Fredrick Workman MD POINT OF CARE TEST EN TER/EDIT ORDERABLES Final Result * (ABNORMAL) Lipid Panel with Reflex to Direct LDL (09/20/2023 10:28 AM EST) Triglycerides 69 <150 mg/dL [facility] Comment:Desirable Triglyceri de: less than 150 mg/dLBorderline High Triglyceride 150-199 mg/dLHigh Triglyceride: 200-499 mg/dLVery High Triglyceride: greater than or equal to 5OO mg/dL Cholesterol 171 <200 mg/dL [facility] Comment:Desirable Cholestero l: less than 200 mg/dLBorderline High Cholesterol: 200-239 mg/dLHigh Cholesterol: greater than 239 mg/dL LDL Cholesterol Calculated 105(H) <100 mg/dL [facility] Comment:Desirable LDL: less than 100 mg/dLNear Optimal/Above Optimal LDL: 110- 129 mg/dLBorderline High LDL: 130-159 mg/dLHigh LDL: 160-189 mg/dLVery High LDL: greater than or equal to 190 mg/dL HDL Cholesterol 53 >40 mg/dL [facility] Comment:Desirable HDL: great er than 40 mg/dL Note: This HDL assay may give artificially low results in patients with liver disease. Blood 09/20/2023 10:2 8 AM EST 09/20/2023 2:40 PM EST us Amanda Bales MD LAB BLOOD ORDERABLES Final Resul t [facility] [address] [place] [phone] * (ABNORMAL) HPV mRNA E6/E7 w/Reflex to HPV Genotypes 16, 18/45 (12/04/2022 3:20 PM EST) HPV nRNA E6/E7 Detected(A ) Not Detected [facility] Comment:Methodology: Transcr iption-Mediated AmplificationThis assay detects E6/E7 viral messenger RNA (mRNA) from 14high-risk HPV types (16,18,31,33,35,39,45,51,52,56,58,59,66,68).Cervical sources are required for HPV testing.If a vaginal source from a patient who has had atotal hysterectomy with removal of cervix wassubmitted, please contact the testing laboratoryfor alternative testing options.For additional information, please refer tohttp://education.Retailo/faq/TCX666p5(This link if provided for information/educational purposes only.)THIS TEST WAS PERFORMED AT:[facility] [address] [id number] PENNINGTON MD HPV 16 RNA NOT DETECTED NOT DETECTED [facility] HPV 18/45 RNA DETECTED(A ) NOT DETECTED [facility] Comment:Methodology: Transcr iption Mediated AmplificationCervical sources are required for HPV testing.If a vaginal source from a patient who has had atotal hysterectomy with removal of cervix wassubmitted, please contact the testing laboratoryfor alternative testing options.THIS TEST WAS PERFORMED AT:[facility] [address] [place] [address]FPNJPGURINDER PENNINGTON MD 12/04/2022 3:20 PM EST 12/05/2022 4:45 PM EST [facility] External Provider LAB CYT OLOGY ORDERABLES Final Result [facility] [address] [place] [address] [phone] * Pap Smear (12/04/2022 3:20 PM EST) 12/04/2022 3:20 PM EST 12/05/2022 4:45 PM EST Narrative [facility] - 2022 11:33 AM EDT ----- ------- Name: Loan Raphael ?Age/Sex: 61/F ? : 1960 Unit#: [id number] ?? Attend Dr: Dieter Snyder MD ?Re12/04/22 ?Status: DEP REF ? Location: HO.LNP ?Disch: ? ----- ------- SPEC : [id number] ? RECD: 12/05/22 ? STATUS: ??SOUT ? REQ NUM: [id number] ? JAYESH: 12/04/22-1520 ? SUBM DR: Dieter Snyder MD ? [...] ? DETECTED ? HPV testing performed by [employer], [place], [place]. ??See reference laboratory ?? portion of the EMR for entire report. ?Clinical Information LMP: Post menopause Previous PAP test: 2021, Abnormal Other history: Ascus, HPV+ ? Material Received ?? ThinPrep-Cervical Copies To: ?? Amanda Bales MD ?? [address] ?? [place] [address] ? Dieter Snyder MD ?? [address] [place] [address] Dr. Varghese [facility] ?? [place] [address] ?? [phone] ----- ------- Signed (signature on file) Lyssa Benítez 12/19/22 1133 ? ----- ------- ? END OF REPORT ? us [facility] External Provider LAB CYT OLOGY ORDERABLES Final Result [facility] [address] [place] [address] [phone] from Last 3 Months or Most Recently Relevant to Health Maintenance Insurance [address] [address] C3 HSN FULL Care Teams Associate Relations Specialist Relationship Specialty Start Date End Date Amanda Bales MD [address] [place] [address] PCP - General Family Medicine 09/30/18
== END 2025-01-27 11:59 | disposition home or self-care (01) ==
LOC: HO.HHCX 11:58
PROVIDERS: Visit Provider Family Medicine
DX: J18.9 Pneumonia, unspecified organism (principal)
CPT/HCPCS: 71046

== ENCOUNTER → 2025-01-27 11:59 | Outpatient (BNV) | payer MEDICAID, SELFPAY | PROVIDERS: Visit Provider Radiology Diagnostic Radiology | DX: J18.9 Pneumonia, unspecified organism (principal) | CPT/HCPCS: 71046 ==

== ENCOUNTER 2025-02-25 14:48 | Outpatient (REF) | payer MEDICAID, SELFPAY ==
[2025-03-04 14:34] LABS: HPV Genotype 16 Negative (Negative); HPV Genotype 18 Positive (Negative); HPV High Risk Positive (Negative)
[2025-03-04 14:36] LABS: HPV Genotype 16 Negative (Negative); HPV Genotype 18 Positive (Negative); HPV High Risk Positive (Negative)
== END 2025-02-25 14:49 | disposition home or self-care (01) ==
LOC: HO.LNP 14:48
PROVIDERS: PCP Family Medicine; Visit Provider Obstetrics & Gynecology
DX: Z01.419 Encounter for gynecological examination (general) (routine) without abnormal findings (principal); N89.0 Mild vaginal dysplasia; R87.612 Low grade squamous intraepithelial lesion on cytologic smear of cervix (LGSIL)
CPT/HCPCS: 87626; 88175; 99396; 99459

== ENCOUNTER 2025-02-25 14:48 | Outpatient (AMB) | payer MEDICAID, SELFPAY ==
--- OUTSIDE RECORDS SUMMARY | 2025-02-25 14:53 | XMS_ITS | Encounter Summary ---
Author Organization [employer] [facility] Address [address] [place] [address] Care Team Providers Care Labor Standards Director Name Role Phone Amanda Bales MD Primary Care Provider [phone] Eben Jay PharmD Unavailable [phone] Encounter Details Date Type Department Care Team (Late st Contact Info) Description 10/26/2022 Abstract [facility] [address] [place] [address] [phone] Amanda Bales MD [address] [place] [phone] Social History Tobacco Use Types Packs/Day Years [...] Care Team (Late st Contact Info) Description 04/29/2025 11:00 AM EDT Office Visit [facility] [address] [place] [address] [phone] Amanda Bales MD [address] [place] [address] [phone] documented as of this encounter Visit Diagnoses Not on filedocumented in this encounter Care Teams Labor Standards Director Relationship Specialty Start Date End Date Amanda Bales MD [address] [place] [address] PCP - General Family Medicine 09/30/18 Eben Jay, RobinsonD [address] [place] [address] Pharmacist Internal Medicine 07/19/23 04/08/24 documented as of this encounter
[2025-02-25 15:08] VITALS: BP 142/80; BMI 29.9
--- NOTE | 2025-02-25 15:08 | MHC.OFFVIS ---
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 No complaints. Last Pap/HPV was LGSIL rule out high-grade CHELSY, HPV positive HPV 16-, HPV 18/45 positive colpo biopsy ECC were negative, vaginal biopsy showed VAIN 1 Last Mammogram was BI-RADS 1 in 01/22 Last Colonoscopy was in 09/22 [facility] Medical History Sessile serrated polyp of colon DHARMESH I (cervical intraepithelial neoplasia I) ASCUS with positive high risk HPV cervical Hypertension Surgical History History of loop electrical excision procedure (LEEP) Hx of colonoscopy History of hemorrhoidectomy (~12/19/22) History of bilateral tubal ligation History of Family History Father HTN (hypertension) Heart attack Mother HTN (hypertension) Diabetes Heart disease Brother HTN (hypertension) Sister HTN (hypertension) Social History Household Members: Family Housing: House Alcohol intake: current Alcohol intake frequency: does not drink Alcohol type: beer Patient Tobacco Use Status: Never used Tobacco service: No Current occupational status: employed 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 Sexual orientation: Straight/Heterosexual Gender identity: Female Female Reproductive History Menstrual Date of last pap smear: 12/13/23 Date of Mammogram: 01/06/25 Review of Systems Const All systems reviewed & are unremarkable except as noted in HPI and below Card Reports as per HPI Resp Reports as per HPI GI Reports as per HPI and Reports no additional complaints Reports as per HPI Physical Exam Vital Signs: Last Vital Signs BP 142/80 H 02/25/25 15:08 BMI result Body Mass Index 29.9 Const General: cooperative, healthy appearing and comfortable Chest Chest palpation & inspection: normal inspection of the chest and normal palpation of entire chest wall Breast/axilla inspection: normal inspection of the breasts and normal inspection of the axillae Breast/axilla palpation: normal palpation of the breasts, normal palpation of the axillae and no axillary lymphadenopathy Resp Effort & Inspection: normal respiratory effort Auscultation: clear to auscultation bilaterally Percussion: percussion normal Cardio Palpation: normal PMI Rate: regular rate Rhythm: regular rhythm Heart sounds: no murmurs and no rubs Peripheral pulses: Peripheral pulses 2+ throughout GI Inspection: Yes normal to inspection Palpation (GI): Soft to palpation, nontender, no guarding, not rigid and No hepatosplenomegaly present Percussion: Yes normal to percussion Auscultation: normal bowel sounds Rectal Exam - Female: deferred General: Yes bladder normal to palpation External Female Exam: No lesion Speculum Exam - Vagina: normal appearance of the vagina, normal palpation, normal vaginal discharge and not erythematous Speculum Exam - Cervix: normal appearance of the cervix and normal palpation Bimanual exam- vagina & uterus: normal bimanual exam, normal palpation, uterine size normal, bladder normal to palpation, consistency normal and normal palpation Bimanual Exam- Adnexa, other: normal adnexae, no masses and no tenderness Assessment & Plan Assessment & Plan (1) Well woman exam: Comment: History of DHARMESH 1 since 2016 status post LEEP cone was post cone ECC with negative pathology 10/21 Ascus/HPV 18 positive, colpo negative/ECC negative 12/20 ascus/HPV 18/45 positive, colpo biopsy DHARMESH 1 12/21 LGSIL rule out high-grade CHELSY, colpo biopsy ECC negative VAIN 1 Code(s): Z01.419 - Encounter for gynecological examination (general) (routine) without abnormal findings Category: Medical Plan: Co testing done. Counseled the patient about the recommended dietary allowance of 1200 mg of Calcium & 600 IU of vitamin D. Instructions given to patient to schedule next screening Mammogram in 01/23. The patient was instructed to perform monthly self-breast exams and schedule annual exam in a year. All questions answered and the patient verbalized understanding. (2) VAIN I (vaginal intraepithelial neoplasia grade I): Code(s): N89.0 - Mild vaginal dysplasia Category: Medical Plan: Vaginal smear co testing done Coding Level of Care Code Est Pt Prev Care 40-64y(34627) Diagnoses Well woman exam Z01.419 VAIN I (vaginal intraepithelial neoplasia grade I) N89.0
== END 2025-02-25 15:50 | disposition home or self-care (01) ==
LOC: HO.HWS 14:48
PROVIDERS: PCP Family Medicine; Visit Provider Obstetrics & Gynecology
DX: Z01.419 Encounter for gynecological examination (general) (routine) without abnormal findings (principal); N89.0 Mild vaginal dysplasia
CPT/HCPCS: 99396; 99459

== ENCOUNTER 2025-02-26 10:05 | Outpatient (REF) | payer MEDICAID, SELFPAY ==
--- OUTSIDE RECORDS SUMMARY | 2025-02-26 10:38 | XMS_ITS | Encounter Summary ---
Author Organization [employer] [facility] Address [address] [place] [address] Care Team Providers Care Chemist Intern Name Role Phone Amanda Bales MD Primary Care Provider [phone] Eben Jay PharmD Unavailable [phone] Encounter Details Date Type Department Care Team (Late st Contact Info) Description 10/26/[address] [facility] [address] [place] [address] [phone] Amanda Bales MD [address] [place] [phone] Social History Tobacco Use Types Packs/Day Years [...] Description 04/29/2025 11:00 AM EDT Office Visit [facility] [address] [place] [address] [phone] Amanda Bales MD [address] [place] [address] [phone] documented as of this encounter Visit Diagnoses Not on filedocumented in this encounter Care Teams Chemist Intern Relationship Specialty Start Date End Date Amanda Bales MD [address] [place] [address] PCP - General Family Medicine 09/30/18 Eben Jay, RobinsonD [address] [place] [address] Pharmacist Internal Medicine 07/19/23 04/08/24 documented as of this encounter
[2025-02-26 15:44] LABS: Estimated Average Glucose 123 mg/dL; Hemoglobin A1c % 5.9 % (<6.0)
[2025-02-26 16:11] LABS: Alanine Aminotransferase 34 U/L (0-31); Albumin Level 4.1 g/dL (3.5-5.0); Anion Gap 8 (12-20); Aspartate Amino Transferase 30 U/L (5-31); Bilirubin Total 0.3 mg/dL (0.0-1.0); Blood Urea Nitrogen 23 mg/dL (9-16); Calcium 9.6 mg/dL (8.4-10.2); Carbon Dioxide 29 mmol/L (22-29); Chloride 103 mmol/L (96-108); Cholesterol 160 mg/dL (<200); Estimated Glomerular Filt Rate > 60; Glucose Random 102 mg/dL (60-115); HDL Cholesterol 48 mg/dL (>40); LDL Cholesterol Calculated 98 mg/dL (<100); Potassium 3.2 mmol/L (3.3-5.1); Sodium 137 mmol/L (135-145); TSH reflex Free T4 1.29 uIU/mL (0.32-4.0); Total Protein 7.4 g/dL (6.5-8.0); Triglycerides 73 mg/dL (<150)
[2025-02-26 16:47] LABS: Alkaline Phosphatase 61 U/L (39-117)
[2025-02-26 18:30] LABS: Reflex LDLD? No
== END 2025-02-26 10:06 | disposition home or self-care (01) ==
LOC: HO.CHCLDS 10:05
PROVIDERS: Visit Provider Family Medicine
DX: I10 Essential (primary) hypertension (principal); R73.03 Prediabetes; E66.811 Obesity, class 1; E66.09 Other obesity due to excess calories; Z68.33 Body mass index [BMI] 33.0-33.9, adult
CPT/HCPCS: 36415; 80053; 80061; 83036; 84443

== ENCOUNTER 2025-03-10 09:04 | Outpatient (AMB) | payer OTHER, SELFPAY ==
--- NOTE | 2025-03-10 09:05 | A.OFFVIS_ITS ---
Intake Visit Reasons: colpo results Fine Artist Required: Yes Fine Artist Language: Nanotechnology Engineering Technician Services: Fine Artist Present (in person) Fine Artist Name: Joselin BASS Information Interpreted: non-clinical & clinical Allergies penicillin V Allergy (Unknown, Verified 03/10/25 09:06) hives Post menopausal: Yes HPI Comments Details: The patient is scheduled tele health visit for follow-up regarding abnormal Pap smear showing low-grade CHELSY HPV high-risk positive, HPV 18 positive, HPV 16 negative [facility] Medical History (Updated 03/10/25 @ 09:14 by Dieter Snyder MD) Sessile serrated polyp of colon DHARMESH I (cervical intraepithelial neoplasia I) ASCUS with positive high risk HPV cervical Hypertension Surgical History History of loop electrical excision procedure (LEEP) Hx of colonoscopy History of hemorrhoidectomy (~12/19/22) History of bilateral tubal ligation History of Family History Father HTN (hypertension) Heart attack Mother HTN (hypertension) Diabetes Heart disease Brother HTN (hypertension) Sister HTN (hypertension) Social History Household Members: Family Housing: House Alcohol intake: current Alcohol intake frequency: does not drink Alcohol type: beer Patient Tobacco Use Status: Never used Tobacco service: No Current occupational status: employed 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 Sexual orientation: Straight/Heterosexual Gender identity: Female Review of Systems Const All systems reviewed & are unremarkable except as noted in HPI and below Reports as per HPI and Reports no additional complaints GI Reports no additional complaints Reports no additional complaints Telehealth Telehealth Telehealth Platform: [facility] Location of provider rendering services: practice address Location of patient: address on file Patient Identification confirmed using: Name, : Yes Telehealth method: video Patient verbally consented to treatment: Yes Patient verbally consented to billing insurance company: Yes Patient informed of any privacy concerns related to visit: Yes Minutes spent on Phone/Video with Pt.: 7 Assessment & Plan Assessment & Plan (1) LGSIL on Pap smear of cervix: Comment: HPV 18 positive, HPV 16 negative Code(s): R87.612 - Low grade squamous intraepithelial lesion on cytologic smear of cervix (LGSIL) Category: Medical Plan: Discussed with the patient the result of her abnormal pap, its significance, ris k of progression, persistence, and regression. the false positive/negative rate of a Pap smear as a screening test in detecting cervical cancer and the indication for a diagnostic test -colposcopy, biopsy, endocervical curettage. The patient verbalized understanding and agreed with the plan, all questions answered. Instructions given the patient to schedule colposcopy biopsy/ECC. I spent a total of 20 minutes reviewing the chart, talking to the patient via phone and documenting in the medical record. Coding Level of Care Code Tele Est Pt Level 3 (38210) Diagnoses LGSIL on Pap smear of cervix R87.612
== END 2025-03-10 09:25 | disposition home or self-care (01) ==
LOC: HO.HWS 09:04
PROVIDERS: PCP Family Medicine; Visit Provider Obstetrics & Gynecology
DX: R87.612 Low grade squamous intraepithelial lesion on cytologic smear of cervix (LGSIL) (principal)
CPT/HCPCS: 99213

== ENCOUNTER 2025-04-14 13:48 | Outpatient (AMB) | payer OTHER, SELFPAY ==
[2025-04-14 14:09] VITALS: BMI 30.2
--- NOTE | 2025-04-14 14:09 | A.OFFVIS_ITS ---
Vital Signs 04/14/25 14:09 Height 5 ft 1 in Weight 160 lb BMI 30.2 Intake Visit Reasons: Colposcopy Corporate Safety Director Required: Yes Corporate Safety Director Language: Financial Dealers Services: Corporate Safety Director Present (in person) Corporate Safety Director Name: Joselin BASS Information Interpreted: non-clinical & clinical Digital Content Specialist: Digital Content Specialist Present (Joselin BASS) Accompanied by: Self / Same As Patient Allergies penicillin V Allergy (Unknown, Verified 04/14/25 14:14) hives Post menopausal: Yes HPI Comments Details: Presenting with abnormal Pap smear showing LGSIL rule out moderate dysplasia, HPV positive, HPV 18 positive, HPV 16 negative [facility] Medical History Sessile serrated polyp of colon DHARMESH I (cervical intraepithelial neoplasia I) ASCUS with positive high risk HPV cervical Hypertension Surgical History History of loop electrical excision procedure (LEEP) Hx of colonoscopy History of hemorrhoidectomy (~12/19/22) History of bilateral tubal ligation History of Family History Father HTN (hypertension) Heart attack Mother HTN (hypertension) Diabetes Heart disease Brother HTN (hypertension) Sister HTN (hypertension) Social History Household Members: Family Housing: House Alcohol intake: current Alcohol intake frequency: does not drink Alcohol type: beer Patient Tobacco Use Status: Never used Tobacco service: No Current occupational status: employed 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 We thoroughly discussed the procedure itself, including its details, alternatives, and all associated risks. This included but not limited to the following complications such as bleeding, infection, and injury to the vagina, bladder, and vessels, as well as the potential need for transfusion with all its associated risks. Subsequently, the patient sign the consent. Pap smear result: LSIL can not rule out moderate dysplasia, HPV positive, HPV 18 positive, HPV 16 negative. Procedure: During the procedure, the following steps were performed: A speculum was inserted, and acetic acid was applied. Small cervical stump from previous LEEP with endocervical stenosis Colposcopy was conducted, allowing visualization of the transformation zone. Acetowhite lesions were identified at the 7+12+3 o'clock position. Cervical biopsies were obtained from the 7+12+3 o'clock position, followed by an endocervical curettage (ECC), given the endo cervical stenosis from previous LEEP, ECC was suboptimal. Vaginoscopy of the upper vagina revealed no evidence of aceto-white lesions. Hemostasis was achieved using Monsel solution, and the patient tolerated the procedure well. Post-Procedure Instructions: The patient was advised to promptly contact the office or the after hours answering service or go to the emergency room if experiencing a temperature exceeding 100.4?F, abdominal pain, nausea/vomiting, or bleeding. Additionally, the patient was instructed to abstain from vaginal intercourse and bathtub use. The patient confirmed understanding of these instructions. Discharge Instructions: The patient was instructed to schedule a follow-up appointment in 2 weeks for further evaluation and management. Please note that this note was generated using a voice recognition program, and errors may have occurred during healthcare management. 57006-Khlozkknc of cervix including upper vagina with biopsy and ECC Procedure code (CPT) selection complete Assessment & Plan Assessment & Plan (1) LGSIL on Pap smear of cervix: Comment: Can not rule out moderate dysplasia HPV 18 positive, HPV 16 negative Small cervical stump remnant from previous LEEP with stenosed endocervix Code(s): R87.612 - Low grade squamous intraepithelial lesion on cytologic smear of cervix (LGSIL) Category: Medical Plan: Discussed with the patient the result of her abnormal pap, its significance, risk of progression, persistence, and regression. the false positive/negative rate of a Pap smear as a screening test in detecting cervical cancer and the indication for a diagnostic test -colposcopy, biopsy, endocervical curettage. The patient verbalized understanding and agreed with the plan, all questions answered. Colposcopy, biopsy /ECC done, see procedure note Orders: Orders AMB Colposcopy Today R87.612 - Low grade squamous intraepithelial lesion on cytologic smear of cervix (LGSIL) Coding Level of Care Code Procedure Only Diagnoses LGSIL on Pap smear of cervix R87.612 CPT Codes Colposcopy - CPT: 39861-Lztolqekz of cervix including upper vagina with biopsy and ECC ([id number])
--- OUTSIDE RECORDS SUMMARY | 2025-04-14 14:40 | XMS_ITS | Encounter Summary ---
Author Organization [employer] [facility] Address [address] [place] [id number] Care Team Providers Care Office Services Manager Name Role Phone Amanda Bales MD Primary Care Provider [phone] Eben Jay PharmD Unavailable [phone] Encounter Details Date Type Department Care Team (Late st Contact Info) Description 10/26/2022 Abstract [facility] [address] [place] [address] [phone] Amanda Bales MD [address] [place] [phone] Social History Tobacco Use Types Packs/Day Years [...] Description 04/29/2025 11:00 AM EDT Office Visit [facility] [address] [place] [address] [phone] Amanda Bales MD [address] [place] [address] [phone] documented as of this encounter Visit Diagnoses Not on filedocumented in this encounter Care Teams Office Services Manager Relationship Specialty Start Date End Date Amanda Baels MD [address] [place] [address] PCP - General Family Medicine 09/30/18 Eben Jay, RobinsonD [address] [place] [address] Pharmacist Internal Medicine 07/19/23 04/08/24 documented as of this encounter
--- OUTSIDE RECORDS SUMMARY | 2025-04-14 14:40 | XMS_ITS | Patient Health Record ---
Author Organization [facility] Address [address] [place] [address] Care Team Providers Care Cover Maker Name Role Phone Amairani LIN, Amanda Primary Care Provider Ye Rivera Jr Unavailable [phone] Allergies Allergen (clinical drug ingredient) Drug/Non Drug Allergy documented on EMR Reaction Allergy Type Onset Date Status Penicillin Unknown Drug Allergy Active Reason For Referral No Information Medications Medication SIG (Take, Route, Frequency, Duration) Notes Start Date End Date Status Colyte with Flavor Packs 240 GM As direc delmis Orally Over the specified time. for 1 day(s) 01/08/2019 Active hydroCHLOROthiazide 25 MG 1 tablet in th e morning Orally Once a day Active Ibuprofen 600mg Orally as needed Active Immunizations Vaccine Route Administration Date Status Comme nts Influenza Unknown 01/08/2019 Refused Problems Problem Type SNOMED Code ICD Code Onset Dates Problem Status W/U Status Risk Notes Problem 396445216 Colon cancer screening (Z12.11) Active confirmed Problem 330502591 Personal history of colonic polyps (Z86.010) Active confirmed Problem 485181508 Long-term curren t use of high risk medication other than anticoagulant (Z79.899) Active confirmed Plan Of Treatment Future Test Test Name Order Date COLONOSCOPY 09/02/2013 COLONOSCOPY 01/08/2019 Insurance Providers Payer Name Payer Address Payer Phone Subscriber Number Group Number Insured Name Patient Relationship to Insured Coverage Start Date Coverage End Date [id number] [address] [place] [phone] [id number] JIMMIE TA Self - patient is the insured Medical (General) History Medical History History ICD Code hypertension Denies [place],DM,CVA,Lung disease,renal dise ase abnormal mammogram abnormal Pap smear urinary incontinence-mild Surgical History Surgery Date(Month/Year)
== END 2025-04-14 14:33 | disposition home or self-care (01) ==
LOC: HO.HWS 13:48
PROVIDERS: PCP Family Medicine; Visit Provider Obstetrics & Gynecology
DX: R87.612 Low grade squamous intraepithelial lesion on cytologic smear of cervix (LGSIL) (principal)
CPT/HCPCS: 57454

== ENCOUNTER 2025-04-14 13:48 | Outpatient (REF) | payer OTHER, SELFPAY | END 2025-04-14 13:49 | disposition home or self-care (01) | LOC: HO.LNP 13:48 | PROVIDERS: PCP Family Medicine; Visit Provider Obstetrics & Gynecology | DX: R87.612 Low grade squamous intraepithelial lesion on cytologic smear of cervix (LGSIL) (principal); R87.810 Cervical high risk human papillomavirus (HPV) DNA test positive; R87.610 Atypical squamous cells of undetermined significance on cytologic smear of cervix (ASC-US) | CPT/HCPCS: 57454; 88305; 88341; 88342 ==

== ENCOUNTER 2025-04-29 15:01 | Outpatient (AMB) | payer OTHER, SELFPAY ==
--- OUTSIDE RECORDS SUMMARY | 2025-04-29 15:04 | XMS_ITS | Encounter Summary ---
Author Organization [employer] [facility] Address [address] [place] [address] Care Team Providers Care Broadcast Engineer Name Role Phone Amanda Bales MD Primary Care Provider [phone] Eben Jay PharmD Unavailable [phone] Encounter Details Date Type Department Care Team (Late st Contact Info) Description 10/26/2022 Abstract [facility] [address] [place] [address] [phone] Amanda Bales MD [address] [place] [phone] Social History Tobacco Use Types Packs/Day Years [...] Care Team (Late st Contact Info) Description 05/28/2025 10:30 AM EDT Clinical Support [facility] [address] [place] [address] [phone] documented as of this encounter Visit Diagnoses Not on filedocumented in this encounter Care Teams Broadcast Engineer Relationship Specialty Start Date End Date Amanda Bales MD [address] [place] [address] [phone] PCP - General Family Medicine 09/30/18 Eben Jay, PharmD [address] [place] [address] Pharmacist Internal Medicine 07/19/23 04/08/24 documented as of this encounter
--- OUTSIDE RECORDS SUMMARY | 2025-04-29 15:05 | XMS_ITS | Patient Health Record ---
Author Organization [facility] Address [address] [place] [address] Care Team Providers Care Supervisor Cell Efficiency Name Role Phone Amairani LIN, Amanda Primary Care Provider Ye Rivera Jr Unavailable Allergies Allergen (clinical drug ingredient) Drug/Non Drug [...] Problem Status W/U Status Risk Notes Problem 141768756 Colon cancer screening (Z12.11) Active confirmed Problem 169366226 Personal history of colonic polyps (Z86.010) Active confirmed Problem 589871911 Long-term curren t use of high risk medication other than anticoagulant (Z79.899) Active confirmed Plan Of Treatment Future Test Test Name Order Date COLONOSCOPY 09/02/2013 COLONOSCOPY 01/08/2019 Insurance Providers Payer Name Payer Address Payer Phone Subscriber Number Group Number Insured Name Patient Relationship to Insured Coverage Start Date Coverage End Date [facility]ICA[facility] [address] [place] [phone] [id number] JIMMIE TA Self - patient is the insured Medical (General) History Medical History History ICD Code hypertension Denies [place],DM,CVA,Lung disease,renal dise ase abnormal mammogram abnormal Pap smear urinary incontinence-mild Surgical History Surgery Date(Month/Year)
--- NOTE | 2025-04-29 15:11 | A.OFFVIS_ITS ---
Intake Visit Reasons: colpo results Post Graduate Internship Required: Yes Post Graduate Internship Language: Quality Improvement Coordinator (Rn) Services: Post Graduate Internship Present (in person) Post Graduate Internship Name: Joselin DugganVERÓNICAChandler Information Interpreted: non-clinical & clinical Emblem Maker: Emblem Maker Present (Joselin KALI Duggan) Accompanied by: Self / Same As Patient Allergies penicillin V Allergy (Unknown, Verified 04/14/25 14:14) hives HPI Comments Details: Presenting post colpo for follow-up. The patient is doing well with no complaints. The pathology showed the following: A. Endocervix, curettage: Fragments of squamous mucosa within normal limits; no endocervical component seen; negative for squamous intraepithelial lesion. B. Cervix, 3 o'clock, biopsy: Squamous mucosa within normal limits; no endocervical component seen; negative for squamous intraepithelial lesion. C. Cervix, 7 o'clock, biopsy: Squamous mucosa within normal limits; no endoce rvical component seen; negative for squamous intraepithelial lesion. D. Cervix, 12 o'clock, biopsy: Low-grade squamous intraepithelial lesion (DHARMESH 1) [facility] Medical History (Updated 04/29/25 @ 15:14 by Dieter Snyder MD) Sessile serrated polyp of colon DHARMESH I (cervical intraepithelial neoplasia I) ASCUS with positive high risk HPV cervical Hypertension Surgical History History of loop electrical excision procedure (LEEP) Hx of colonoscopy History of hemorrhoidectomy (~12/19/22) History of bilateral tubal ligation History of Family History Father HTN (hypertension) Heart attack Mother HTN (hypertension) Diabetes Heart disease Brother HTN (hypertension) Sister HTN (hypertension) Social History Household Members: Family Housing: House Alcohol intake: current Alcohol intake frequency: does not drink Alcohol type: beer Patient Tobacco Use Status: Never used Tobacco service: No Current occupational status: employed 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 Sexual orientation: Straight/Heterosexual Gender identity: Female Review of Systems Const All systems reviewed & are unremarkable except as noted in HPI and below Reports as per HPI and Reports no additional complaints GI Reports no additional complaints Reports no additional complaints Assessment & Plan Assessment & Plan (1) DHARMESH I (cervical intraepithelial neoplasia I): Comment: Persistent since 2016 2019 Status post the LEEP cone was post cone ECC was negative pathology 10/21 ascus/HPV 18 positive, colpo negative/ECC negative 2022 ascus HPV 18/45 positive, colpo biopsy DHARMESH 1 2023 LSIL r/o HGSIL, HPV 18/45 positive- colpo/bx/ecc= neg VAIN I 02/21 LGSIL r/o hgsil HPV 18+/16 neg, colpo biopsy ECC DHARMESH 1 Code(s): N87.0 - Mild cervical dysplasia Category: Medical Plan: Discussed with the patient persistent DHARMESH 1 for the last 2 years , also discussed with the patient the ASCCP guidelines for management of DHARMESH 1 histologically preceded by HSIL cytologically, options of treatment include colpo and HPV [facility] testing in 1 year versus LEEP. But explained to the patient that she has minimal cervical tissue remaining secondary to previous LEEP which was done in 2019, LEEP might not be feasible, the patient is frustrated from yearly Pap smears being abnormal over a long period of time with repetitive colposcopies and biopsies and is interested in definitive surgical management. Will refer to [facility] OBGYN for further management. All questions answered, the patient verbalized understanding Coding Level of Care Code Est Pt Level 3 (39094) Diagnoses DHARMESH I (cervical intraepithelial neoplasia I) N87.0
== END 2025-04-29 15:26 | disposition home or self-care (01) ==
LOC: HO.HWS 15:01
PROVIDERS: PCP Family Medicine; Visit Provider Obstetrics & Gynecology
DX: N87.0 Mild cervical dysplasia (principal)
CPT/HCPCS: 99213

== ENCOUNTER → 2025-04-29 15:01 | Outpatient (BNVA) | payer OTHER, SELFPAY | PROVIDERS: PCP Family Medicine; Visit Provider Obstetrics & Gynecology | DX: N87.0 Mild cervical dysplasia (principal) | CPT/HCPCS: 99212 ==

== ENCOUNTER 2025-05-14 11:49 | Outpatient (AMB) | payer MEDICAID, SELFPAY ==
[2025-05-14 11:51] VITALS: BP 140/78; PULSE 76; O2SAT 98; BMI 31.2
--- NOTE | 2025-05-14 11:51 | MHC.OFFVIS ---
Vital Signs 05/14/25 11:51 Height 5 ft 1 in Weight 165 lb BMI 31.2 BP 140/78 H Blood Pressure Location Rt brachial Position Sitting Pulse 76 Pulse Source Pulse Oximeter Pulse Oximetry (%) 98 Oxygen Delivery Method Room Air Intake Visit Reasons: 8 months f/u Intake Note: Est pt for recall colo 1-2 years per fair prep. CC: Pt denies any GI sx or concerns at this time. Bar Host/Hostess Required: Yes Bar Host/Hostess Services: Bar Host/Hostess Present Bar Host/Hostess Name: Ponce [id number] Information Interpreted: clinical only Accompanied by: Self / Same As Patient Allergies penicillin V Allergy (Unknown, Verified 05/14/25 11:52) hives HPI HPI 8 months f/u: Details: LAST VISIT: Sessile serrated polyp of colon Status post colonoscopy Plan Patient will need to repeat colonoscopy in 1 year. Suboptimal prep and recommendation was made to repeat colonoscopy in 1 year. Patient prefers GoLYTELY as she gets better results from it. Will order GoLYTELY instead next time. Follow-up in 8 months, sooner on as needed basis. Patient will call our office if she will have any GI concerning symptoms. She is agreeable to current plan of care and verbalizes understanding of instructions. She was given the opportunity to ask questions and all questions answered. ? TODAY'S VISIT: Patient is here today to discuss going for colonoscopy. Last colonoscopy had suboptimal prep. Recommendation was made for 1 year follow-up. Patient had split MiraLax and Dulcolax prep. Patient prefers GoLYTELY. She states she is not constipated and moves her bowels daily. She states that she is feeling like she empties them completely. Patient denies any GI concerning symptoms. Denies any issues with anesthesia in the past. Denies any history of sleep apnea. Not on any anticoagulation medication. Patient denies any cardiac or respiratory symptoms. [facility] Medical History Sessile serrated polyp of colon DHARMESH I (cervical intraepithelial neoplasia I) ASCUS with positive high risk HPV cervical Hypertension Surgical History History of loop electrical excision procedure (LEEP) Hx of colonoscopy History of hemorrhoidectomy (~12/19/22) History of bilateral tubal ligation History of Family History Father HTN (hypertension) Heart attack Mother HTN (hypertension) Diabetes Heart disease Brother HTN (hypertension) Sister HTN (hypertension) Social History Household Members: Family Housing: House Alcohol intake: current Alcohol intake frequency: does not drink Alcohol type: beer Patient Tobacco Use Status: Never used Tobacco service: No Current occupational status: employed 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 Sexual orientation: Straight/Heterosexual Gender identity: Female Review of Systems Const Denies weight gain and Denies weight loss ENT Reports no additional complaints, Denies dysphagia and Denies odynophagia Card Reports no additional complaints Resp Reports no additional complaints GI Denies abdominal pain, Denies belching, Denies melena, Denies bloating, Denies change in bowel habits, Denies dysphagia, Denies excessive flatus, Denies dyspepsia, Denies heartburn, Denies diarrhea, Denies loose stools, Denies nausea, Denies odynophagia and Denies vomiting Musc Reports no additional complaints Neuro Reports no additional complaints Psych Reports no additional complaints Endo Reports no additional complaints Physical Exam Vital Signs: Last Vital Signs Pulse 76 05/14/25 11:51 BP 140/78 H 05/14/25 11:51 Pulse Ox 98 05/14/25 11:51 Oxygen Delivery Method Room Air 05/14/25 11:51 BMI result Body Mass Index 31.2 Const General: healthy appearing and no acute distress Nutritional Appearance: obese Orientation/consciousness: patient oriented x3 Resp Effort & Inspection: normal respiratory effort, able to speak in complete sentences, no tracheal deviation and symmetric chest movement Auscultation: clear to auscultation bilaterally Cardio Rate: regular rate Heart sounds: S1 normal heart sound present, S2 normal heart sound present, no gallops and no murmurs GI Inspection: Yes normal to inspection, No distended and Yes obesity Palpation (GI): Soft to palpation, not firm, nontender and No hepatosplenomegaly present Auscultation: normal bowel sounds General: Yes no CVA tenderness Back/Spine/Pelvis Back: no CVA tenderness Skin General skin exam: elasticity normal, turgor normal and dry skin Neuro General: patient oriented x3 Psych Appearance: grossly normal Mental Status: mental status grossly normal Assessment & Plan Assessment & Plan (1) Hemorrhoids: Code(s): K64.9 - Unspecified hemorrhoids Category: Surgical Qualifiers: Hemorrhoid type: unspecified Qualified Code(s): K64.9 - Unspecified hemorrhoids (2) Sessile serrated polyp of colon: Code(s): D12.6 - Benign neoplasm of colon, unspecified Category: Medical (3) Screen for colon cancer: Code(s): Z12.11 - Encounter for screening for malignant neoplasm of colon Plan What to expect before during and after procedure discussed with patient. Stressed the importance of good bowel prep and clear liquid diet. Patient will try to take Dulcolax 2 tablets every evening 1 week before procedure. We will change MiraLax to GoLYTELY. Patient denies any GI concerning symptoms. No issues with anesthesia in the past. I will see patient after the procedure, sooner on as needed basis. She is agreeable to this plan and verbalizes understanding of instructions. She was given the opportunity to ask questions and all questions answered. Thank you for allowing me to participate in her care Medications: New peg 3350-electrolytes 227.1-21.5-6.36 gram until fecal effluent is clear; do not exceed a total volume [id number] mL 240 mL PO Q10M 1 ea 0RF bisacodyl (Dulcolax (bisacodyl)) Start taking 2 tablet every night 7 days before the procedure and 1 day before procedure take 4 tablets at noon time followed by MiraLax prep 10 mg (2 x 5 mg) PO BEDTIME 16 tabs 0RF Z12.11 - Encounter for screening for malignant neoplasm of colon Coding Level of Care Code Est Pt Level 3 (73953) Diagnoses Hemorrhoids, unspecified hemorrhoid type K64.9 Hemorrhoid type: unspecified Sessile serrated polyp of colon D12.6 Screen for colon cancer Z12.11 Time Spent (min) 30 Comment 20 minutes spent with patient and additional 10 minutes spent reviewing her records
--- OUTSIDE RECORDS SUMMARY | 2025-05-14 11:52 | XMS_ITS | Encounter Summary ---
Author Organization [facility] Address [address] [place] [address] Care Team Providers Care Routeman Name Role Phone Amanda Bales MD Primary Care Provider [phone] Eben Jay PharmD Unavailable [phone] Encounter Details Date Type Department Care Team (Late st Contact Info) Description 10/26/2022 Abstract [facility] MEDICINE [address] [place] [address] [phone] Amanda Bales MD [address] [place] [phone] Social History Tobacco Use Types Packs/Day Years [...] Description 05/28/2025 10:30 AM EDT Clinical Support [facility] [address] [place] [address] [phone] documented as of this encounter Visit Diagnoses Not on filedocumented in this encounter Care Teams Routeman Relationship Specialty Start Date End Date Amanda Bales MD [address] [place] [address] [phone] PCP - General Family Medicine 09/30/18 Eben Jay, PharmD [address] [place] [address] Pharmacist Internal Medicine 07/19/23 04/08/24 documented as of this encounter
--- OUTSIDE RECORDS SUMMARY | 2025-05-14 11:52 | XMS_ITS | Patient Health Record ---
Author Organization [facility] Address [address] [place] [address] Care Team Providers Care Station Helper Name Role Phone Amairani LIN, Amanda Primary [...] Problem Status W/U Status Risk Notes Problem [id number] Colon cancer screening (Z12.11) Active confirmed Problem 369460095 Personal history of colonic polyps (Z86.010) Active confirmed Problem [id number] Long-term curren t use of high risk medication other than anticoagulant (Z79.899) Active confirmed Plan Of Treatment Future Test Test Name Order Date COLONOSCOPY 09/02/2013 COLONOSCOPY 01/08/2019 Insurance Providers Payer Name Payer Address Payer Phone Subscriber Number Group Number Insured Name Patient Relationship to Insured Coverage Start Date Coverage End Date MEDICAID [facility] [address] [place] [phone] [id number] JIMMIE TA Self - patient is the insured Medical (General) History Medical History History ICD Code hypertension Denies NE,DM,CVA,Lung disease,renal dise ase abnormal mammogram abnormal Pap smear urinary incontinence-mild Surgical History Surgery Date(Month/Year)
== END 2025-05-14 14:07 | disposition home or self-care (01) ==
LOC: HO.HGI 11:50
PROVIDERS: PCP Family Medicine; Visit Provider Nurse Practitioner Family
DX: Z01.818 Encounter for other preprocedural examination (principal); Z12.11 Encounter for screening for malignant neoplasm of colon; Z86.0101 Personal history of adenomatous and serrated colon polyps; K64.9 Unspecified hemorrhoids
CPT/HCPCS: 99213

== ENCOUNTER → 2025-05-14 11:49 | Outpatient (BNVA) | payer MEDICAID, SELFPAY | PROVIDERS: PCP Family Medicine; Visit Provider Nurse Practitioner Family | DX: Z01.818 Encounter for other preprocedural examination (principal); K64.9 Unspecified hemorrhoids; D12.6 Benign neoplasm of colon, unspecified | CPT/HCPCS: 99212 ==

== ENCOUNTER 2025-07-08 13:53 | Outpatient (REF) | payer OTHER, SELFPAY ==
--- NOTE | 2025-07-08 | PFT_ITS ---
Flows: FEV1: 73 % of predicted at 1.60 L FVC: 64 % of predicted at 1.77 L FEV1/FVC: 91 % Bronchodilator response: Present in small to medium airways only. Volumes: Total lung capacity: 69 % of predicted at 3.13 L Residual volume: 71 % of predicted at 1.60 L Slow vital capacity: 66 % of predicted at 1.99 L Expiratory reserve volume: 27 % of predicted at 0.19 L Diffusion capacity: Normal Impression: Moderate restrictive ventilatory defect with bronchodilator response present in small to medium airways only. Decreased expiratory reserve volume suggests extrathoracic restriction likely secondary to abdominal obesity. MTDD
[2025-07-08 14:36] VITALS: PULSE 66; O2SAT 98
== END 2025-07-08 13:54 | disposition home or self-care (01) ==
LOC: HO.RESP 13:53
PROVIDERS: PCP Family Medicine; Visit Provider Family Medicine
DX: R05.3 Chronic cough (principal)
CPT/HCPCS: 94010; 94640; 94727; 94729

== ENCOUNTER → 2025-07-08 14:02 | Outpatient (BNV) | payer OTHER, SELFPAY | PROVIDERS: PCP Family Medicine; Visit Provider Internal Medicine Pulmonary Disease | DX: J98.4 Other disorders of lung (principal) | CPT/HCPCS: 94060; 94727; 94729 ==

== ENCOUNTER → 2025-08-20 13:20 | Outpatient (REF) | payer OTHER, SELFPAY ==
--- NOTE | 2025-08-20 | HM_ITS ---
* Total monitoring time 2 days. * Underlying rhythm is sinus with an average rate of 78/Min. * Frequent supraventricular ectopy with a burden of 6%. * Rare ventricular ectopy. * No significant pauses or high-grade AV blocks. * No patient markers or diary events. MTDD
--- OUTSIDE RECORDS SUMMARY | 2025-08-20 13:37 | XMS_ITS | Encounter Summary ---
Author Organization [employer] [facility] Address [address] [place] [address] Care Team Providers Care Systems Software Specialist Name Role Phone Amanda Bales MD Primary Care Provider [phone] Eben Jay PharmD Unavailable [phone] Encounter Details Date Type Department Care Team (Late st Contact Info) Description 10/26/2022 Abstract [facility] MEDICINE [address] [place] [address] Amanda Bales MD [address] [place] [id number] Social History Tobacco Use Types Packs/Day Years Used Date Smoking Tobacco: Never Assessed Comments Unknown Sex and Gender Information Value Date Recorded Sex Assigned at Female 07/30/2022 10:18 AM EDT Legal Sex Female 10:18 AM EDT Gender Identity Female 07/30/2022 10:18 AM EDT Sexual Orientation Straight 07/30/2022 10 :18 AM EDT documented as of this encounter Plan of Treatment Not on file documented as of this encounter Visit Diagnoses Not on filedocumented in this encounter Care Teams Systems Software Specialist Relationship Specialty Start Date End Date Amanda Bales MD [address] [place] [address] [phone] PCP - General Family Medicine 09/30/18 Eben Jay, PharmD [address] [place] [address] [phone] Pharmacist Internal Medicine 07/19/23 04/08/24 documented as of this encounter
--- OUTSIDE RECORDS SUMMARY | 2025-08-20 13:37 | XMS_ITS | Patient Health Record ---
Author Organization [facility] Address [address] [place] [address] Care Team Providers Care Lbd Teacher Name Role Phone Amairani LIN, Amanda Primary Care Provider Ye Rivera Jr Unavailable [phone] Allergies Allergen (clinical drug ingredient) Drug/Non Drug Allergy documented on EMR Reaction Allergy Type Onset Date Status Penicillin Unknown Drug Allergy Active Reason For Referral No Information Medications Medication SIG (Take, Route, Frequency, Duration) Notes Start Date End Date Status Colyte with Flavor Packs 240 GM Solution Reconstituted As directed Orally Over the specified time.; Duration: 1 day(s) 01/08/2019 Active hydroCHLOROthiazide 25 MG Tablet 1 tablet in the morning Orally Once a day Active Ibuprofen 600mg Orally as needed Active Immunizations Vaccine Route Administration Date Status Comme nts Influenza Unknown 01/08/2019 Refused Social History Social History Additional Details Category Social Info Options Details Miscellaneous: Marital status: single Occupation: [employer] Problems Problem Type SNOMED Code ICD Code Onset Dates Problem Status W/U Status Risk Notes Problem Colon cancer screening (522985764) Colon cancer screening (Z12.11) Active confirmed Problem History of polyp of colon (situation) (777991786) Personal history of colonic polyps (Z86.010) Active confirmed Problem Long-term current use of drug therapy (801445081) Long-term current use of high risk medication other than anticoagulant (Z79.899) Active confirmed Plan Of Treatment Future Test Test Name Order Date COLONOSCOPY 09/02/2013 COLONOSCOPY 01/08/2019 Insurance Providers Payer Name Payer Address Payer Phone Subscriber Number Group Number Insured Name Patient Relationship to Insured Coverage Start Date Coverage End Date [facility]ICA[facility] [address] [place] [phone] [id number] JIMMIE TA Self - patient is the insured Medical (General) History Medical History History ICD Code hypertension Denies [place],DM,CVA,Lung disease,renal dise ase abnormal mammogram abnormal Pap smear urinary incontinence-mild Surgical History Surgery Date(Month/Year)
--- OUTSIDE RECORDS SUMMARY | 2025-08-20 13:37 | XMS_ITS | Encounter Summary ---
Author Organization [employer] [facility] Address [address] [place] [address] [place] [address] Care Team Providers Care Schedule Planning Manager Name Role Phone Amanda Bales MD Primary Care Provider [phone] Eben Jay PharmD Unavailable [phone] Encounter Details Date Type Department Care Team (Late st Contact Info) Description 03/07/2023 Abstract [facility] MEDICINE [address] [place], [place] [phone] Amanda Bales MD [address] [place] [address] Social History Tobacco Use Types Packs/Day Years [...] on file documented as of this encounter Procedures Procedure Name Priority Date/Time Associated Diagnosis Comments HM COLONOSCOPY Routine 04/06/2019 documented in this encounter Results * Hm Colonoscopy (04/06/2019) Colonoscopy Normal Normal 04/06/2019 Ye Reid MD HEALTH MAINTENANCE Final Res ult documented in this encounter Visit Diagnoses Not on filedocumented in this encounter Additional Health Concerns Assessment Noted Time PHQ-9 Depression Total Score: 0 11/05/19 23 9:39 AM EST documented as of this encounter Care Teams Schedule Planning Manager Relationship Specialty Start Date End Date Amanda Bales MD [address] [place] [address] PCP - General Family Medicine 09/30/18 Eben Jay, RobinsonD [address] [place] [address] Pharmacist Internal Medicine 07/19/23 04/08/24 documented as of this encounter
--- OUTSIDE RECORDS SUMMARY | 2025-08-20 13:37 | XMS_ITS | Encounter Summary ---
Author Organization [employer] [facility] Address [address] [place] [address] 7 [place] [address] Care Team Providers Care Mitering Machine Operator Name Role Phone Amanda Bales MD Primary Care Provider [phone] Eben Jay PharmD Unavailable [phone] Encounter Details Date Type Department Care Team (Late st Contact Info) Description 07/03/2023 Abstract [facility] MEDICINE [address] [place] [address] Deepali [place] Social History Tobacco Use Types [...] documented as of this encounter Care Teams Mitering Machine Operator Relationship Specialty Start Date End Date Amanda Bales MD [address] [place] [address] PCP - General Family Medicine 09/30/18 Eben Jay, RobinsonD [address] [place] [address] Pharmacist Internal Medicine 07/19/23 04/08/24 documented as of this encounter
--- OUTSIDE RECORDS SUMMARY | 2025-08-20 13:37 | XMS_ITS | Encounter Summary ---
Author Organization [employer] Address [address] [place] [address] Care Team Providers Care Ship Officer Name Role Phone Amanda Bales MD Primary Care Provider [phone] Eben Jay PharmD Unavailable [phone] Encounter Details Date Type Department Care Team (Late st Contact Info) Description 04/19/2023 Abstract [facility] MEDICINE [address] [place] [address] Amanda Bales MD [address] [place] [address] Social History Tobacco Use Types Packs/Day Years [...] documented as of this encounter Care Teams Ship Officer Relationship Specialty Start Date End Date Amanda Bales MD [address] [place] [address] PCP - General Family Medicine 09/30/18 Eben Jay, Sarai [address] [place] [address] Pharmacist Internal Medicine 07/19/23 04/08/24 documented as of this encounter
--- OUTSIDE RECORDS SUMMARY | 2025-08-20 13:37 | XMS_ITS | Encounter Summary ---
Author Organization [facility] Address [address] [place] [address] [place] [address] Care Team Providers Care Tufting Machine Operator Name Role Phone Amanda Bales MD Primary Care Provider [phone] Reason for Visit * Reason Onset Date Comments Appointment Request 12/10/2024 Encounter Details Date Type Department Care Team ([facility] Contact Info) Description 12/10/2024 Telephone [facility] MEDICINE [address] [place], [place] [phone] Amanda Bales MD [address] [place], [place] [phone] Appointment Request Social History Tobacco Use Types [...] with PCP was 04/21/24. Contact pt at [phone] documented in this encounter Plan of Treatment Not on file documented as of this encounter Goals Goal Patient Goal Type Associated Problems Recent Progress Patient-Stated? Author Blood Pressure < 140/90 Blood Pressure 132/80( 025 1:09 PM EST) No Eben Jay, PharmD documented as of this encounter Visit Diagnoses Not on filedocumented in this encounter Additional Health Concerns Assessment Noted Time PHQ-9 Depression Total Score: 1 12/19/19 24 11:33 AM EDT documented as of this encounter Care Teams Tufting Machine Operator Relationship Specialty Start Date End Date Amanda Bales MD [address] [place] [address] PCP - General Family Medicine 09/30/18 documented as of this encounter
--- OUTSIDE RECORDS SUMMARY | 2025-08-20 13:37 | XMS_ITS | Clinical Summary ---
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 [employer] Name Role Phone Amanda Bales MD Primary Care Provider [phone] Allergies Active Allergy Reactions Criticality Noted Date Comments Penicillins Hives Medium 10/06/2010 Other reaction(s): unspecified Medications cetirizine (ZyrTEC) 10 MG tablet TAKE 1 TABLET BY MOUTH EVERY MORNING 90 tablet 3 06/02/20 24 Active meloxicam (Mobic) 15 MG tabletIndicati ons:Left hip pain TAKE 1 TABLET BY MOUTH EVERY DAY 30 tablet 12/15/19 25 Active Spacer/Aero-Ho lding Chambers (AeroChamber MV) inhalerIndicat ions:Community acquired pneumonia of right middle lobe of lung Use as instructed 1 each 2 01/16/20 25 Active olmesartan-hyd roCHLOROthiazi de (Benicar HCT) 40-12.5 MG tablet Take 1 tablet by mouth Once per day. 90 tablet 3 08/03/20 25 026 Active albuterol 108 (90 Base) MCG/ACT inhalerIndicat ions:Community acquired pneumonia of right middle lobe of lung Inhale 2 puffs every 6 (six) hours if needed for wheezing. 18 g 11 01/16/20 25 025 Discontinued(Me d list cleanup (will not trigger notification to Pharmacy)) benzonatate (Tessalon Perles) 100 MG capsule Take 1 capsule (100 mg) by mouth if needed in the morning, at noon, and at bedtime for cough. Do not crush or chew. 20 capsule 01/29/20 025 Discontinued(Me d list cleanup (will not trigger notification to Pharmacy)) olmesartan-hyd roCHLOROthiazi de (Benicar HCT) 20-12.5 MG tablet Take 1 tablet by mouth Once per day. 90 tablet 3 04/29/20 25 025 Discontinued(Do se adjustment) Active Problems Problem Noted Date Diagnosed Date FLORESITA (obstructive sleep apnea) 08/08/2025 Assessment & Plan (08/08/2025 10:30 AM EST): Sleep medicine clinic on 02/12/2024. Currently has auto CPAP 6 to 16 cm H2O Shortness of breath 08/08/2025 Overview (08/08/2025): -Pulmonary function test on 07/08/2025. Moderate restrictive ventilatory defect with bronchodilator response present in small to medium airways only. Decreased expiratory reserve volume suggests extrathoracic restriction, likely secondary to abdominal obesity. Transaminitis 04/30/2025 Assessment & Plan (04/30/2025 5:38 AM EDT): - very mildly elevated ALT 34 on 02/26/25, likely MASLD - repeat LFT in 6 mo - consider getting FIB4 index and abd US/elastography if worsening - lifestyle modifications Left hip pain 08/25/2024 Assessment & Plan [...] since it is interfering with her ADLS Obesity 06/24/2023 Assessment & Plan (01/31/2025 9:52 PM EDT): - sleep study is ordered in May 2023; encouraged to schedule appt - lifestyle modification -- Continue working on lifestyle modifications. - Generic advice as below. Tailor for your unique body, character, and specific condition. Dietary Recommendations: Fruits, vegetables, whole grains, protein foods, and fat-free or low-fat dairy products are healthy choices. Eat different types of protein foods in your diet. This can include seafood, lean meats, poultry, beans, peas, lentils, nuts, seeds, soy products, and eggs. Limit foods and beverages higher in added sugars, saturated fat, and sodium. Exercise Recommendations: At least 150 minutes of moderate-intensity physical activity per week, or an equivalent combination of moderate- and vigorous-intensity activity Assessment & Plan (12/22/2023 11:38 AM EDT): [...] cleaning product Prediabetes 03/10/2023 Assessment & Plan (08/08/2025 10:23 AM EST): - A1C 6.2% in Jul 2024 - A1C 5.9% in January 2025 - Continue lifestyle modifications Assessment & Plan (04/30/2025 5:26 AM EDT): - A1C 6.2% in Jul 2024 - A1C 5.9% in January 2025 - Continue lifestyle modifications Assessment & Plan (01/31/2025 9:52 PM EDT): - most recent A1C 6.2% in Jul 2024 - consider starting metformin - consider starting GLP1RA Assessment & Plan (08/25/2024 1:52 PM EST): A1c 6.2 Assessment & Plan (09/22/2023 6:28 PM EST): - 11/29/22 A1C 5.7% - continue working on lifestyle modifications - annual screening Assessment & Plan (03/10/2023 6:56 AM EDT): - 11/29/22 A1C 5.7% - continue working on lifestyle modifications - annual screening Cardiovascular risk factor 03/10/2023 Assessment & Plan (08/08/2025 10:24 AM EST): - Last 10-year ASCVD risk is between 5 and 7% (with her most recent lipid profile and typical BP); may consider moderate intensity statin - continue working on lifestyle modification - consider ASA - consider coronary calcium score if it becomes > 5% Assessment & Plan (04/30/2025 5:24 AM EDT): - Last 10-year ASCVD risk is between 5 and 7% (with her most recent lipid profile and typical BP); may consider moderate intensity statin - continue working on lifestyle modification - consider ASA - consider coronary calcium score if it becomes > 5% Assessment & Plan (01/31/2025 9:56 PM EDT): - 11/29/22 TC 171; HDL 47; LDL 107; TG 84 - Last 10-year ASCVD risk was between 5 and 7.5% (with lipid profile from November 2022 and BP in Aug 2023); may consider moderate intensity statin - Most recent 10-year ASCVD risk with most recent lipid profile in Aug 2023 and BP today is 6.8%. - continue working on lifestyle modification - consider ASA - consider coronary calcium score if it becomes > 5% Assessment & Plan (12/22/2023 11:49 AM EDT): [...] modification Cervical dysplasia 11/05/2022 Assessment & Plan (08/08/2025 10:31 AM EST): ASCUS in 2008. NILM since 2010. 05/10/[address] Torrez. NILM with positive high-risk HPV 05/20/[address] Jasso. ASCUS with positive high-risk HPV. 10/06/18 Pap NILM with positive high-risk HPV 04/30/20 Pap by [facility] [employer]TENSION WORK INSTRUCTOR, Dr. Snyder. ASCUS with positive high-risk HPV [...] 01/29/24 ECC. Vaginal wall biopsy - VAIN-1 02/25/25 PAP/cotest LSIL. HPV18 positive. HPV16 negative. 04/14/25 Colpo/ECC LSIL / DHARMESH-1. Assessment & Plan (04/29/2025 6:09 AM EDT): ASCUS in 2008. NILM since 2010. 05/10/[address] Torrez. NILM with positive high-risk HPV 8/21/[address] Jasso. ASCUS with positive high-risk HPV. 10/06/18 Pap NILM with positive high-risk HPV 04/30/20 Pap by [facility] EXTENSION WORK INSTRUCTOR, Dr. Snyder. ASCUS with positive high-risk HPV [...] 01/29/24 ECC. Vaginal wall biopsy - VAIN-1 02/25/25 PAP/cotest LSIL. HPV18 positive. HPV16 negative. 04/14/25 Colpo/ECC LSIL / DHARMESH-1. Assessment & Plan (01/27/2025 5:41 AM EDT): ASCUS in 2008. NILM since 2010. 05/10/[address] Torrez. NILM with positive high-risk HPV 8/21/[address] Jasso. ASCUS with positive high-risk HPV. 10/06/18 Pap NILM with positive high-risk HPV 04/30/20 Pap by [facility] EXTENSION WORK INSTRUCTOR, Dr. Snyder. ASCUS with positive high-risk HPV [...] biopsy - VAIN-1 Continue following up with EXTENSION WORK INSTRUCTOR Assessment & Plan (09/22/2023 6:28 PM EST): ASCUS in 2008. NILM since 2010. 05/10/[address] Torrez. NILM with positive high-risk HPV 8/[address] Jasso. ASCUS with positive high-risk HPV. 10/06/18 Pap NILM with positive high-risk HPV 04/30/20 Pap by [facility] EXTENSION WORK INSTRUCTOR, Dr. Snyder. ASCUS with positive high-risk HPV 07/21/20 Colposcopy / ECC DHARMESH-1 09/09/20 LEEP and cone Mild dysplasia 10/02/[address] Snyder ASCUS with positive high-risk HPV 10/31/21 Colposcopy / ECC No atypia 11/26/[address] Snyder ASCUS with positive high-risk HPV 02/18/23 Colposcopy / ECC LGSIL / DHARMESH-1 Continue following up with EXTENSION WORK INSTRUCTOR Assessment & Plan (06/24/2023 10:14 AM EDT): ASCUS in 2008. NILM since 2010. 05/10/[address] Torrez. NILM with positive high-risk HPV 821/[address] Jasso. ASCUS with positive high-risk HPV. 10/06/18 Pap NILM with positive high-risk HPV 04/30/20 Pap by [facility] EXTENSION WORK INSTRUCTOR, Dr. Snyder. ASCUS with positive high-risk HPV 07/21/20 Colposcopy / ECC DHARMESH-1 09/09/20 LEEP and cone Mild dysplasia 10/02/[address] Snyder ASCUS with positive high-risk HPV 10/31/21 Colposcopy / ECC No atypia 11/26/[address] Snyder ASCUS with positive high-risk HPV 02/18/23 Colposcopy / ECC LGSIL / DHARMESH-1 Continue following up with EXTENSION WORK INSTRUCTOR Assessment & Plan (03/10/2023 6:53 AM EDT): ASCUS in 2008. NILM since 2010. 05/10/[address] Torrez. NILM with positive high-risk HPV 8//[address] Jasso. ASCUS with positive high-risk HPV. 10/06/18 Pap NILM with positive high-risk HPV 04/30/20 Pap by [facility] EXTENSION WORK INSTRUCTOR, Dr. Snyder. ASCUS with positive high-risk HPV 07/21/20 Colposcopy / ECC DHARMESH-1 09/09/20 LEEP and cone Mild dysplasia 10/02/[address] Snyder ASCUS with positive high-risk HPV 10/31/21 Colposcopy / ECC No atypia 11/26/[address] Snyder ASCUS with positive high-risk HPV 02/18/23 Colposcopy / ECC LGSIL / DHARMESH-1 Continue following up with EXTENSION WORK INSTRUCTOR Assessment & Plan (11/05/2022 4:44 AM EST): ASCUS in 2008. NILM since 2010. 05/10/[address] Torrez. NILM with positive high-risk HPV 05/20/ Pap by Dr. Jasso. ASCUS with positive high-risk HPV. 10/06/18 Pap NILM with positive high-risk HPV 04/30/20 Pap by [facility] EXTENSION WORK INSTRUCTOR, Dr. Snyder. ASCUS with positive high-risk HPV 07/21/20 Colposcopy / ECC DHARMESH I 09/09/20 LEEP and cone Mild dysplasia 10/02/[address] Snyder ASCUS with positive high-risk HPV 10/31/21 Colposcopy / ECC No atypia Continue following up with EXTENSION WORK INSTRUCTOR Chronic left shoulder pain 11/05/2022 Assessment & Plan (08/08/2025 10:27 AM EST): - degenerative change on X-ray - pt has tried PT and was doing home exercise program, and referred to [facility] orthopedist - Evaluated by [facility] orthopedist in February 2024. Diagnosed with bursitis and given steroid injection. Patient was referred to physical therapy - continue judicious use of NSAIDs - Will re-evaluate with MRI Assessment & Plan (12/22/2023 11:41 AM EDT): [...] - s/p hemorrhoidectomy by Dr. Osman at [facility] on 12/19/22 - avoid prolonged sitting - prevent constipation with fiber-rich and healthy diet Assessment & Plan (11/11/2022 7:21 AM EST): - external hemorrhoids - prevent constipation. Recommended fiber-rich diet - Mantoux: positive 11/04/2022 Assessment & Plan (11/11/2022 10:35 AM EST): Hx positive PPD Negative T spot TB on 12/17/14 Personal history of COVID-19 11/04/2022 Hypertension 02/14/2015 Assessment & Plan (08/08/2025 10:23 AM EST): -Goal BP< 130/80per ACC/AHA guideline (Treatment threshold >= 140/90) -BP not at goal -Co-managed with pharmacist / [facility], last seen in Oct 2023 -Treatment Hx: hydrochlorothiazide was changed to chlorthalidone in 2014. History hypokalemia with hctz 25 mg. Decreased to 12.5 mg - Continue working on lifestyle modifications - Currently on olmesartan/HCTZ 20/12.5 mg daily. Will increase to olmesartan / hctz 40/12.5 mg daily - Continue checking BP at home Assessment & Plan (04/30/2025 5:35 AM EDT): -Goal BP< 130/80per ACC/AHA guideline (Treatment threshold >= 140/90) -BP not at goal -Co-managed with pharmacist / CDTM, last seen in Oct 2023 -Treatment Hx: hydrochlorothiazide was changed to chlorthalidone in 2014 - Continue working on lifestyle modifications - Currently on chlorthalidone 25 mg daily and losartan 12.5 mg daily - Change to a combo drug to decrease pill-burden and improve medication adherence. Start olmesartan/HCTZ 20/12.5 mg daily. If it requires prior authorization or is expensive, consider losartan/HCTZ 50/12.5 mg daily -Continue checking BP at home -Follow up in 3 wks for BP check. If home SBP is persistently > 135 or office SBP is > 140, consider increasing to olmesartan/HCTZ 40/12.5 mg daily or losartan 100/12.5 mg daily. Assessment & Plan (01/31/2025 9:51 PM EDT): -Goal BP <150/90 per JNC-8 and < 130/80per ACC/AHA guideline (Treatment threshold >= 140/90) -BP not at goal -Co-managed with pharmacist / CDTM, last seen in Oct 2023 -Treatment Hx: hydrochlorothiazide was changed to chlorthalidone in 2014 -Continue working on lifestyle modifications -Continue Chlorthalidone 25 mg daily -Continue losartan 12.5 mg daily -No combination drug is available; may consider losartan - hydrochlorothiazide (but hydrochlorothiazide dose is 50 mg) -Continue checking BP at home -Follow up in 3 wks for BP check. If home SBP is persistently > 130 or office SBP is > 140, increase losartan to 25 mg daily. Consider combo drug, losartan - hctz 25-25 mg daily. Assessment & Plan (12/22/2023 11:45 AM EDT): [...] problem arises -Questionable medication adherence. Referred to [facility]. Assessment & Plan (06/24/2023 10:15 AM EDT): [...] problem arises -Questionable medication adherence. Referred to [facility]. Assessment & Plan (03/10/2023 6:48 AM EDT): [...] problem arises -Questionable medication adherence. Refer to [facility]. Assessment & Plan (11/05/2022 4:34 AM EST): [...] Encounters Date Type Department Care Team Description 08/11/2025 Telephone [facility] [address] [place] [phone] Amanda Bales MD MRI SHOULDER ORDER 08/03/2025 1:00 PM EST Office Visit [facility] [address] [place] [phone] Amanda Bales MD Chronic left shoulder pain (Primary Dx); Primary hypertension; FLORESITA (obstructive sleep apnea); Palpitation; Prediabetes; Cardiovascular risk factor; Cervical dysplasia; Shortness of breath 08/03/2025 Travel 08/02/2025 Telephone [facility] [address] [place] [phone] Kayla Nuñez MA 05/28/2025 10:30 AM EDT Clinical Support [facility] [address] [place] [address] Hortensia Sin RN Primary hypertension 05/28/2025 Travel 05/21/2025 Travel from Last 3 Months Immunizations Immunization Administration Dates Next Due Influenza, Split (incl. purified surface antigen ) 10/07/2012 Pneumococcal Conjugate PCV 20 01/27/2025 TD (adult), 2 Lf tetanus tox oid, [...] Access Q2 Not on file 01/14/2025 Comments No Sex and Gender Information Value Date Recorded Sex Assigned at Female 07/30/2022 10:18 AM EDT Legal Sex Female 10:18 AM EDT Gender Identity Female 07/30/2022 10:18 AM EDT Sexual Orientation Straight 07/30/2022 10 :18 AM EDT Last Filed Vital Signs Vital Sign Reading Time Taken Comments Blood Pressure 132/80 08/03/2025 1:09 PM EST Pulse 90 08/03/2025 1:09 PM EST Temperature 36.2 C (97.2 F) 08/03/2025 1:09 PM EST Respiratory Rate 21 08/03/2025 1:09 PM EST Oxygen Saturation 99% 08/03/2025 1:09 PM EST Inhaled Oxygen Concentration - - Weight 75.9 kg (167 lb 6 oz) 08/03/2025 1:09 PM EST Height 149.9 cm (4' 11 ) 08/03/2025 1:09 PM EST Body Mass Index 33.81 08/03/2025 1:09 PM EST Plan of Treatment Health Maintenance Due Date Last Done Comments CT Colonography 1960 FIT DNA/Cologuard 1960 FIT 1960 FOBT 1960 Sigmoidoscopy 1960 COVID-19 Vaccine ( season) 2025 09/21/2021, 02/16/2021, 01/26/2021 Influenza Vaccine (#1) 2025 10/07/2012 SDOH Screening 01/14/2026 01/14/2025 Alcohol/Substance Use Screening 01/27/2026 01/27/2025 Depression Screening 01/27/2026 01/27/2025, 01/28/20 25 Diabetes: Hemoglobin A1C 02/26/2026 025, 08/25/2024, 09/20/2023, Additional history exists Disability Screening 05/21/2026 05/21/2025 Tobacco Screening 08/08/2026 08/08/2025 Mammogram 01/06/2027 01/06/2025, 10/01, 10/19/2022, Additional history exists Colonoscopy 09/01/2027 09/01/2024, 04/06/2019 Colorectal Cancer Screening 09/01/2027 Pap Smear 02/26/2028 02/25/2025, 04/0 12/2023, 12/04/2022, Additional history exists Cervical Cancer Screening 02/25/2030 HPV/Cotest 02/25/2030 02/25/2025, 01/29, 12/04/2022, Additional history exists Lipid Panel 02/26/2030 02/26/2025, 12/10/2022, 11/29/2022, Additional history exists DTaP/Tdap/Td Vaccines (3 - Td or Tdap) 03/30/2031 03/30/2021, 12/23/2009 RSV Patients and Patients Aged 60 years or older (1 - 1-dose 75+ series) 2037 Zoster Vaccines Completed 10/30/2023, 07/19/2023 HIV Screening Completed 01/02/2024 Hepatitis C Screening Completed 01/02/2024 Pneumococcal Vaccine: 50+ Years Completed 01/27/2025 HIB Vaccines Aged Out No longer eligi [...] patient's age to complete this topic Meningococcal B Vaccine Aged Out No l onger eligible based on patient's age to complete [...] Blood Pressure 132/80( 025 1:09 PM EST) Eben Solo, RobinsonD Procedures Procedure Name Priority Date/Time Associated Diagnosis Comments HEMOGLOBIN A1C Routine 02/26/2025 10:06 AM EDT Prediabetes LIPID PANEL WITH REFLEX TO DIRECT LDL Routine 02/26/2025 10:06 AM EDT Primary hypertension HPV DNA, LOW/HIGH RISK Routine 02/25/2025 3:36 PM EDT PAP SMEAR Routine 02/25/2025 3:36 PM EDT BI MAMMOGRAM SCREENING TOMOSYNTHESIS BILATERAL Routine 01/06/2025 3:00 PM EDT HM COLONOSCOPY Routine 09/01/2024 from Last 3 Months or Most Recently Relevant to Health Maintenance Results * Lipid Panel with Reflex to Direct LDL (02/26/2025 10:06 AM EDT) Triglycerides 73 <150 mg/dL [facility] Comment:Desirable Triglyceri de: less than 150 mg/dLBorderline High Triglyceride 150-199 mg/dLHigh Triglyceride: 200-499 mg/dLVery High Triglyceride: greater than or equal to 5OO mg/dL Cholesterol 160 <200 mg/dL [facility] Comment:Desirable Cholestero l: less than 200 mg/dLBorderline High Cholesterol: 200-239 mg/dLHigh Cholesterol: greater than 239 mg/dL LDL Cholesterol Calculated 98 <100 mg/dL [facility] Comment:Desirable LDL: less than 100 mg/dLNear Optimal/Above Optimal LDL: 110- 129 mg/dLBorderline High LDL: 130-159 mg/dLHigh LDL: 160-189 mg/dLVery High LDL: greater than or equal to 190 mg/dL HDL Cholesterol 48 >40 mg/dL [facility] Comment:Desirable HDL: great er than 40 mg/dL Note: This HDL assay may give artificially low results in patients with liver disease. Blood 02/26/2025 10:0 6 AM EDT 02/26/2025 2:51 PM EDT us Amanda Bales MD LAB BLOOD ORDERABLES Final Resul t [facility] [address] [place] [address] [phone] * Hemoglobin A1c (02/26/2025 10:06 AM EDT) Hemoglobin A1c 5.9 <6.0 % [facility] Comment:Hemoglobin A1C Refer ence Range Adults: 4.8 - 6.0 % Non diabetic: < 6.0 % Goal: < 7.0 %Additional Action Suggested: > 8.0 %Note: Hemoglobin A1c results are invalid for patients with abnormal amounts of HbF. Blood transfusions may impact the HbA1c concentration in the patient sample. Estimated Average Glucose 123 mg/dL [facility] Comment:eAG = Estimated ave rage glucose which is %A1C expressed asaverage glucose, using the formula of the W9K-SgvstxcNglylyr Glucose study (ADAG), Diabetes Care, Vol.31,#8,Apr. 2007 Blood Venous blood specimen / Unknown 02/26/2025 10:06 AM EDT 02/26/2025 2:51 PM EDT us Amanda Bales MD LAB BLOOD ORDERABLES Final Resul t [facility] [address] [place] [phone] * (ABNORMAL) HPV DNA, Low/High Risk (02/25/2025 3:36 PM EDT) HPV High Risk Positive(A) Negative [facility] HPV Genotype 16 Negative Negative [facility] HPV Genotype 18 Positive(A) Negative [facility] Comment:HPV testing performe d at [facility] (CLIA#[id number]), [address] [place] [address].Testing for HPV was performed using the Fines[employer] DAWSON 6800system. The presence of HPV in the female genital tract isassociated with a number of diseases, including cervicalcarcinoma. The HPV DNA high risk pool tests for HPV 31, 33,35, 39, 45, 51, 52, 56, 58, 59, 66 and 68. The testing forHPV 16 and 18 genotypes has also been performed. A positiveresult indicates detection of nucleic acid sequences fromone or more subtypes, whereas a negative result indicatessuch sequences were not detected. 02/25/2025 3:36 PM EDT 02/26/2025 10:35 AM EDT Narrative [facility] - 03/04/2025 2:35 PM EDT HPV for both specimen A B. us Generic External Data Provider LAB BLOOD ORDERAB LES Final Result [facility] [address] [place] [phone] * Pap Smear (02/25/2025 3:36 PM EDT) 02/25/2025 3:36 PM EDT 02/26/2025 10:35 AM EDT Narrative [facility] - 03/03/2025 5:39 PM EDT ----- ------- Name: Loan Raphael Age/Sex: 64/F : 1960 Unit#: [id number] Attend Dr: Dieter Snyder MD Re02/25/25 Status: [facility] Location: [facility] Disch: ----- ------- SPEC : [id number] RECD: 02/26/25 STATUS: KASANDRA BALDERAS NUM: [id number] JAYESH: 02/25/25-1535 [facility] DR: Dieter Snyder MD ENTERED: 02/26/25-1045 SP TYPE: Pap Smr OTHR DR: Amanda Bales MD ORDERED: Pap Smear/2, PAP path review Interpretation A. Cervical: General Category: Epithelial cell abnormality. Adequacy: Endocervical component present. Interpretation: Low grade squamous intraepithelial lesion (DHARMESH I), cannot exclude a moderate dysplasia. HPV High Risk: Positive HPV Genotyping 16: Negative HPV Genotyping 18: Positive B. Vaginal: General Category: Epithelial cell abnormality. Adequacy: Adequate vaginal specimen. Interpretation: Low grade squamous intraepithelial lesion (DHARMESH I) HPV High Risk: Positive HPV Genotyping 16: Negative HPV Genotyping 18: Positive Clinical Information LMP: Unknown date Previous PAP test: 12/13/2023, DHARMESH 1 Other history: Mild vaginal dysplasia, low grade squamous intraepithelial lesion on cytologic smear of cervix (LGSIL), vaginal intraepithelial neoplasia Grade 1 Material Received A. ThinPrep-Cervical B. ThinPrep-Vaginal PAP Disclaimer As of July 22, 2024, the technical services to include automated prescreening performed by the ThinPrep Imaging System, PAP screening and HPV testing will be performed at [facility] (CLIA #[id number]), [address] [place] [address]. Testing for HPV was performed using the [employer] DAWSON 6800 system. The presence of HPV in the female genital tract is associated with a number of diseases, including cervical carcinoma. The HPV DNA high risk pool tests for HPV 31, 33, 35, 39, 45, 51, 52, 56, 58, 59, CONTINUED ON NEXT PAGE ----- ------- Name: Loan Raphael Age/Sex: 64/[facility] 1960 [id number]#: [id number] Attend Dr: Dieter Snyder MD Re02/25/25 Status: DEP REF Location: [facility] Disch: ----- ------- SPEC : [id number] RECD: 02/26/25 STATUS: KASANDRA BALDERAS NUM: [id number] JAYESH: 02/25/25153 [facility] DR: Dieter Snyder MD ENTERED: 02/26/25 SP TYPE: Pap Smr OTHR DR: Amanda Bales MD ORDERED: Pap Smear/2, PAP path review PAP Disclaimer (Continued) 66 and 68. The testing for HPV 16 and 18 genotypes has also been performed. A positive result indicates detection of nucleic acid sequences from one or more subtypes, whereas a negative result indicates such sequences were not detected. All professional services are performed by [facility] ([address] [place] [address]; ; CLIA #[id number]). The PAP Test is a screening procedure with the inherent possibility of both false negative and false positive results. Results should be interpreted in the context of historic and current clinical findings. Reliability of the PAP Test is enhanced by performing the test on a regular repetitive basis. Copies To: Amanda Bales MD [address] [id number] Dieter Snyder MD [facility] [address] [place] [address] Drive [address] [place] [address] ----- ------- Signed (signature on file) Lyssa Benítez 03/03/25 1739 ----- ------- END OF REPORT us Generic External Data Provider LAB CYTOLOGY ORDHasmukh GOMEZ Final Result [facility] [address] [place] [address] [phone] * BI Mammogram Screening Tomosynthesis Bilateral (01/06/2025 3:00 PM EDT) Anatomical Region Laterality Modality Breast Bilateral Mammography 01/06/2025 3:00 PM EDT Narrative 01/12/2025 4:34 PM EDT [address] [place] [address] Mammography Report Signed Patient: Loan Raphael MR#: [id number] : 1960 Acct:[id number] Age/Sex: 64 / F ADM Date: 01/06/25 Loc: HO.MAMMO Attending Dr: Fredrick Dan MD Ordering Physician: Fredrick Dan MD Resu lts: 1Negative Date of Service: 01/06/25 Follow Up: 1 Year From Orig [facility] Mammogram Procedure(s): MM tomosynthesis screening BI Accession Number(s): [id number] cc: Fredrick Dan MD EXAMINATION: MM SCREENING [...] 01/12/25 1631 DD/ 1500 TD/TT: 01/06/25 1513 Orthotic Technician: Procedure Note Donotuseinterpreter, Image - [facility] [address] [place] [address] Mammography Report Signed Patient: Loan Raphael [facility]#: [id number] : 1960Acct:[id number] Age/Sex: 64 / FADM Date: 01/06/25 Loc: HO.MAMMO Attending Dr: Fredrick Dan MD Ordering Physician: Fredrick Danesu lts: 1Negative Date of Service: 01/06/25Follow Up: 1 Year From Orig inal Mammogram Procedure(s): MM tomosynthesis screening BI Accession Number(s): [id number] cc: Fredrick Dan MD EXAMINATION: MM SCREENING [...] 01/12/25 1631 DD/ 1500 TD/TT: 01/06/25 1513 Orthotic Technician: Fredrick Workman MD IMG BI PROCEDURES Fin al Result * (ABNORMAL) Colonoscopy (09/01/2024) Colonoscopy Abnormal(A ) Normal 09/01/2024 Historical Provider HEALTH MAINTENANCE Final Result from Last 3 Months or Most Recently Relevant to Health Maintenance Insurance 3 [employer] Relationship Specialty Start Date End Date Amanda Bales MD [address] [place] [address] PCP - General Family Medicine 09/30/18
== END ==
LOC: HO.CARD 13:20
PROVIDERS: PCP Family Medicine; Visit Provider Family Medicine
DX: R00.2 Palpitations (principal)
CPT/HCPCS: 93225

== ENCOUNTER 2025-09-03 10:02 | Outpatient (REF) | payer OTHER, SELFPAY ==
[2025-09-03 17:09] LABS: Alanine Aminotransferase 28 U/L (0-31); Albumin Level 4.3 g/dL (3.5-5.0); Alkaline Phosphatase 71 U/L (39-117); Anion Gap 10 (12-20); Aspartate Amino Transferase 28 U/L (5-31); Blood Urea Nitrogen 16 mg/dL (9-16); Calcium 9.8 mg/dL (8.4-10.2); Carbon Dioxide 27 mmol/L (22-29); Chloride 106 mmol/L (96-108); Cholesterol 166 mg/dL (<200); Estimated Glomerular Filt Rate > 60; HDL Cholesterol 46 mg/dL (>40); Magnesium 2.1 mg/dL (1.6-2.6); Potassium 3.7 mmol/L (3.3-5.1); Sodium 139 mmol/L (135-145); Total Protein 7.4 g/dL (6.5-8.0); Triglycerides 91 mg/dL (<150)
[2025-09-03 17:23] LABS: Microalbum/Creatinine Ratio Ur 9.1 ug/mg cr (<30)
[2025-09-03 21:34] LABS: Reflex LDLD? No
== END 2025-09-03 10:03 | disposition home or self-care (01) ==
LOC: HO.CHCLDS 10:02
PROVIDERS: Visit Provider Family Medicine
DX: I10 Essential (primary) hypertension (principal); R74.01 Elevation of levels of liver transaminase levels; E87.6 Hypokalemia; Z13.220 Encounter for screening for lipoid disorders
CPT/HCPCS: 36415; 80053; 80061; 82043; 82570; 83735